=== PATIENT | male | born 1930 | race Caucasian/White ===

== ENCOUNTER 2017-05-29 06:53 | Observation (INO) | payer OTHER ==
[2017-05-29] VITALS (7 sets, daily range): BP systolic 110–165; BP diastolic 63–98; PULSE 64–86; TEMP 36.3–36.7; O2SAT 94–98; BMI 26.0
[~2017-05-29] VITALS: Ht 188 cm; Wt 93.6 kg
[~2017-05-29 06:53] MED LIST: CLCC1250 PO; CMD5 PO; CMD75 PO; MGN PO; MULT-506 PO; OMEG10007 PO; SAW PALMETTO; SIMV20TA2 PO
[2017-05-29] MEDS ORDERED: METO-551 PO (07:14)
[2017-05-29] MEDS ORDERED: WARF5TAB7 PO (07:14)
[2017-05-29] MEDS ORDERED: CHOL100027 PO (07:14)
[2017-05-29] MEDS ORDERED: LEVO50TA PO (07:14)
[2017-05-29] MEDS ORDERED: CHOL20007 PO (07:20)
[2017-05-29] MEDS ORDERED: HEPARIN SOD (PORCINE) 1000 UNIT/ML 10 ML VIAL ONE (08:38)
[2017-05-29] MEDS ORDERED: NiCARDipine HCL INJ 2.5 MG/ML 10 ML AMP ONE (08:38)
[2017-05-29] MEDS ORDERED: MIDAZOLAM HCL 1 MG/ML 2ML VIAL ONE (08:39)
[2017-05-29] MEDS ORDERED: NITROGLYCERIN/D5W 100MCG/ML 20ML SYR ONE (08:39)
[2017-05-29] MEDS ORDERED: FENTANYL CITRATE INJ 50 MCG/1 ML 2 ML VIAL ONE ×2 (08:40→13:40)
--- NOTE | 2017-05-29 08:40 | History & Physical Bridge Note ---
H&P Re-Evaluation Bridge Note: I have examined the patient, reviewed the History & Physical and in the interval since the performance of the History & Physical I have noted the following changes of clinical significance: No changes noted
--- NOTE | 2017-05-29 08:51 | HISTORY & PHYSICAL EXAMINATION ---
DATE OF ADMISSION: 05/29/2017 INDICATIONS: Cardiac catheterization as preoperative evaluation planned aortic root repair. HISTORY OF PRESENT ILLNESS: The patient is an 86-year-old male whose history is notable for: 1. Bicuspid aortic valve. 2. Status post aortic valve replacement in 1995 for severe aortic stenosis receiving Cazares Medtronic mechanical prosthesis. 3. Dilated ascending aorta and thoracic aneurysm. 4. Chronic atrial fibrillation. 5. Left bundle branch block. 6. Hyperlipidemia. The patient is admitted in anticipation of diagnostic cardiac catheterization to evaluate coronary anatomy as a preoperative assessment prior to his planned surgical repair of a dilated thoracic aortic aneurysm. The patient is asymptomatic. Notes no chest pain. Notes no heart failure. Notes no fevers, chills or sweats. He has had bridge anticoagulation with Lovenox from Coumadin. Notes no bleeding difficulties or complications. Notes no allergies. Notes no melena, hematochezia, dysuria or hematuria. REVIEW OF SYSTEMS: Otherwise negative. ALLERGIES: None. MEDICATIONS: Prior to hospitalization, levothyroxine 50 mcg p.o. every day, vitamin D3 2000 units every day, warfarin 5 mg variable dosing, Zocor 20 mg p.o. daily, metoprolol tartrate 50 mg b.i.d., amoxicillin prior to dental procedures. PAST SURGICAL HISTORY: Notable for aortic valve replacement as described, past remote herniorrhaphy, prostate biopsy. FAMILY HISTORY: Noncontributory. SOCIAL HISTORY: The patient is a nonsmoker, nondrinker. PHYSICAL EXAMINATION: GENERAL: The patient is a pleasant, age appropriate male in no acute distress. VITAL SIGNS: Reveal a heart rate of 70, blood pressure is 134/80. HEENT: Normocephalic, atraumatic. Nares without discharge. Throat was clear. NECK: Supple without thyromegaly, lymphadenopathy. There is no jugular venous distention. No carotid bruits. LUNGS: Clear to auscultation. CARDIOVASCULAR: Irregular, irregular with crisp mechanical valve sounds. A grade 1/6 systolic murmur. There is no diastolic murmur. ABDOMEN: Soft, nontender. EXTREMITIES: Without cyanosis or clubbing. There is no peripheral edema. Femoral and distal pulses are 2+/4. There are no femoral bruits. NEUROLOGIC: The patient is intact. IMPRESSION: An 86-year-old male with history of aortic valve disease with bicuspid aortic valve status post remote aortic valve replacement with Cazares Medtronic mechanical prosthesis now demonstrates aortopathy with significant change in the size and dilatation of the thoracic aorta now reaching degree of requiring surgical repair. He is referred now for diagnostic cardiac catheterization in anticipation of procedure. Procedure and risks have been explained in detail with the patient including the risk of , myocardial infarction, stroke, bleeding, infection, dye reaction, renal vascular injury. The patient agrees to proceed. Consent form was completed.
[2017-05-29] MEDS ORDERED: SODIUM CHLORIDE 0.9% 1000ML 1,000 ML IV SCH (10:26)
[2017-05-29] MEDS ORDERED: SODIUM CHLORIDE 0.9% 1000ML 250 ML IV PRN (10:26)
[2017-05-29] MEDS ORDERED: NITROGLYCERIN 0.4 MG SL PER TAB CHARGE SL PRN (10:30)
[2017-05-29] MEDS ORDERED: ACETAMINOPHEN 325 MG TAB PO PRN ×2 (10:30→14:45)
[2017-05-29] MEDS ORDERED: ATROPINE SULFATE 0.1 MG/ML 5ML SYR IV PRN (10:30)
--- NOTE | 2017-05-29 10:35 | [facility] Post Operative Brief Note ---
Preliminary Procedure Note Procedure Date May 29, 2017. Pre-Procedure Diagnosis Valvular Disease AUC Score 7 Post-Procedure Diagnosis Mild CAD Procedure(s) Performed Coronary Angiography, Aortography [facility] Hook[facility] Dr. Jose Antonio Trejo Liability Analyst(s) Lorenzo Roth Estimated Blood Loss <20cc Medication(s) Heparin (2000u IV), Nicardipine (250mcg intraarterial after radial sheath insertion), Versed (1mg IV), Lidocaine 1% (local infiltration) Preliminary Findings Left dominant coronary anatomy Separate origins LAD, LCX LAD mild irreg without obstruction LCX dominant, patent but inadequate visualization RCA non dominant Aortic root, ascending markedly dilated Recommendations valve replacement Specimens None Fluids (cc crystalloids) 140 Anesthesia Start 0852 Stop 1007 Procedural Complication(s) None Disposition Human Capital Analyst Holding/Recovery
[2017-05-29] MEDS ORDERED: ACETAMINOPHEN 325 MG TAB ONE (11:42)
[2017-05-29] MEDS ORDERED: NITROGLYCERIN 2% OINTMENT 30GM TUBE EXT ONE (11:42)
[2017-05-29] MEDS ORDERED: ONDANSETRON INJ 2 MG/ML 2 ML VIAL ONE (13:06)
--- NOTE | 2017-05-29 14:01 | DIAGNOSTIC IMAGING REPORT ---
CT SCAN OF THE BRAIN WITHOUT IV CONTRAST CLINICAL HISTORY: Headache status post cardiac catheterization. COMPARISON STUDY: No priors. TECHNIQUE: Unenhanced axial CT scan of the brain is performed from the vertex to the skull base. A dose lowering technique was utilized adhering to the principles of ALARA. CT DOSE: 537.48 mGy.cm FINDINGS: Brain parenchyma: There are age-related involutional changes noting mild subcortical and periventricular microangiopathic change. There is no hemorrhage, mass effect, or evidence of acute territorial ischemia by CT criteria. Evans-white matter is preserved. No extra-axial fluid collection is seen. Ventricles, sulci, cisterns: Prominent secondary to involutional change. Intracranial vasculature: There is atherosclerotic calcification of the cavernous carotid arteries. Residual contrast is noted within the vessels at the skull base. Calvarium: Unremarkable. Soft tissues: There is a small lipoma in the left frontal scalp. Sinuses and mastoids: Small retention cysts are seen in the sphenoid sinuses. The visualized paranasal sinuses are otherwise clear. The mastoid air cells are well pneumatized. Orbits: The bony orbits are grossly intact. There are bilateral ocular lens implants. IMPRESSION: There is no hemorrhage, mass effect, or evidence of acute territorial ischemia by CT criteria. Electronically signed by: Ken Trujillo M.D. 05/29/2017 2:00 PM Dictated Date/Time: 05/29/2017 1:58 PM
--- NOTE | 2017-05-29 14:14 | CARDIAC CATH REPORT ---
REFERRING: Dr. Jose Antonio Trejo. REFERRAL DIAGNOSIS: Ascending thoracic aneurysm. PREOPERATIVE EVALUATION: History of prior mechanical aortic valve replacement 1995. OPERATIONS AND PROCEDURES: Coronary angiography, aortic root angiography. BRIEF CARDIAC HISTORY: The patient is an 86-year-old male who underwent prior aortic valve replacement with Cazares Medtronic mechanical prosthesis in 1995, who has developed progressively worsening aortopathy with markedly dilated ascending aorta now reaching nearly 6 cm. He is referred for diagnostic cardiac catheterization in anticipation of aortic root repair. He has not manifested angina or congestive heart failure. ACCESS: Right radial artery. CATHETERS: A 6-Algerian long glide sheath, 5-Algerian brachial 3.5, 6-Algerian long FL4, 5-Algerian long FL 3.5, 5-Algerian JL5, 5 Algerian multipurpose, 5 Algerian AR2, 5-Algerian angled pigtail catheter. CONTRAST: Nonionic x209 mL. IV FLUIDS: 140 mL normal saline. RADIATION EXPOSURE: 32.3 minutes of fluoroscopy with 5227 milligrays, DAP score 39734. SEDATION: Start 0852, end 1007. MEDICATIONS SEDATION: Versed 1 mg IV, fentanyl 12.5 mcg IV, local infiltration of access site with lidocaine. After arterial sheath was inserted patient received an additional 250 mcg of nicardipine. After central access was gained, the patient received 2000 units IV heparin. PROCEDURAL NOTE: The patient has distinctly separate origin of the left anterior descending and left circumflex. Left anterior descending was able to be engaged with a long FL4. Ostium of the left circumflex was unable to be engaged despite multiple changes and catheter exchanges predominantly due to dilated aorta, as well as maximal length catheter use with inability to reach ostium of the vessel. Images were obtained with indirect dye injection with suboptimal visualization of the left circumflex. COMPLICATIONS: None. RESULTS: CORONARY ANGIOGRAPHY: Left main is not present. There are separate origins with distinct separation between the origin of the left anterior descending and the left circumflex. LEFT ANTERIOR DESCENDING: Left anterior descending is type 3 in distribution and gives rise to a large multibranching septal branch and a small diagonal branch in its proximal third and an additional bifurcating diagonal branch in its mid portion before coursing beyond the apex. There is mild luminal irregularities left anterior descending with no obstructive disease. LEFT CIRCUMFLEX: Left circumflex is dominant in distribution and is as described not directly cannulated with only modest visualization of its proximal and mid portions. Can be visualized as a large caliber vessel without obstruction to its bifurcation point and to the posterior descending artery and the posterior ventricular branch. The distal vessels are only faintly seen, but appear to have normal flow. RIGHT CORONARY ARTERY: The right coronary artery is small and nondominant consisting of 2 right ventricular branches. HEMODYNAMICS: Initial aortic root pressure was 119/60 with a mean of 86, closing aortic root pressure was 155/96 with a mean of 123. FINAL IMPRESSIONS: 1. Markedly dilated ascending thoracic aorta. 2. Left dominant coronary anatomy with separate origin of the left anterior descending and left circumflex. 3. Widely patent left anterior descending with mild luminal irregularities only. 4. Very modest visualization of the left circumflex due to inability to directly cannulate ostium of procedure compromised secondary to dilated aortic root and length of catheters required to achieve cannulation. Vessels appear patent, distinct obstruction not discerned. 5. Nondominant right coronary artery, small in caliber without obstruction. RECOMMENDATIONS: The patient is being evaluated for surgical repair of thoracic aorta. [facility]
[2017-05-29] MEDS ORDERED: IV FLUIDS COMPLETED PRN (15:15)
[2017-05-29] MEDS: SODIUM CHLORIDE 0.9% 1000ML 1,000 ML IV SCH (15:34)
--- NOTE | 2017-05-29 15:50 | PROGRESS NOTE ---
DATE: 05/29/2017 SUBJECTIVE: The patient today underwent diagnostic cardiac catheterization with difficult procedure due to thoracic aortic aneurysm and difficulty accessing coronary anatomy. The patient received substantial dose of IV contrast greater than 200 mL as well as IV fluids. Post-procedure, the patient was hypertensive and developed severe headache and nausea, received multiple medications including Zofran, fentanyl for pain and headache as well as initial transient dose of topical nitrates for blood pressure control. The patient demonstrated no acute findings with headache. No focal neurologic deficits. CT scan of the head was ordered due to complaints, which demonstrated no acute findings. After discussion with the patient with diffuse nausea, weakness, and above complaints, he was referred for observation. Overnight, we will continue gentle hydration with low threshold for adding a single dose of diuretic and IV fluids and contrast received. Renal function and electrolytes will be checked as well as now and in a.m. The patient will receive usual dose of 10 mg Coumadin this evening with plans on resuming subcutaneous Lovenox in a.m. Cath access site was without compromise. Other than the technically difficult procedure, it was not complicated other than an extended procedure and dye administration. Discussed in detail with patient and . SIDDHARTHA
[2017-05-29] MEDS ORDERED: WARFARIN SOD 10 MG TAB PO ONE (16:00)
[2017-05-29] MEDS ORDERED: SIMVASTATIN 20 MG TAB PO SCH (21:00)
[2017-05-29] MEDS: METOPROLOL TARTRATE 50 MG TAB PO SCH (21:16)
[2017-05-29] MEDS ORDERED: ENOXAPARIN 80 MG/0.8 ML SYR SQ STA (22:14)
[2017-05-29] MEDS ORDERED: NURSING VERBAL MED ORDER ONE (22:15)
[2017-05-30 03:50] VITALS: BP 121/64; PULSE 73; TEMP 36.6; O2SAT 94
[2017-05-30 05:28] LABS: BASO % 0.1 %; BASO ABS # 0.01 K/uL (0-0.2); EOS % 0.8 %; EOS ABS # 0.06 K/uL (0-0.5); HEMATOCRIT 38.8 % (42-52); HEMOGLOBIN 12.7 g/dL (14.0-18.0); IG# 0.02 K/uL (0.00-0.02); LYMPH % 26.7 %; LYMPH ABS # 1.96 K/uL (1.2-3.4); MEAN CELL VOLUME 91.3 fL (80-100); MEAN CORPUSCULAR HEMOGLOBIN 29.9 pg (25-34); MEAN PLATELET VOLUME 11.4 fL (7.4-10.4); MONO % 11.3 %; MONO ABS # 0.83 K/uL (0.11-0.59); NEUT % 60.8 %; NEUT ABS # 4.46 K/uL (1.4-6.5); PLATELET COUNT 140 K/uL (130-400); RED CELL DISTRIBUTION WIDTH CV 13.3 % (11.5-14.5); RED CELL DISTRIBUTION WIDTH SD 44.2 fL (36.4-46.3); WHITE BLOOD COUNT 7.34 K/uL (4.8-10.8)
[2017-05-30 05:37] LABS: INR 1.1 (0.9-1.1)
[2017-05-30 06:00] LABS: CALCIUM 8.4 mg/dl (8.5-10.1); CREATININE 0.95 mg/dl (0.60-1.40); POTASSIUM 3.8 mmol/L (3.5-5.1)
[2017-05-30] MEDS ORDERED: LEVOTHYROXINE 50 MCG TAB PO SCH (06:00)
[2017-05-30 06:03] LABS: MEAN CORPUSCULAR HGB CONC 32.7 g/dl (32-36)
[2017-05-30] MEDS: SODIUM CHLORIDE 0.9% 1000ML 1,000 ML IV SCH (07:15)
[2017-05-30] MEDS: METOPROLOL TARTRATE 50 MG TAB PO SCH (08:08)
[2017-05-30 08:31] VITALS: BP 146/92; PULSE 86; TEMP 36.3; Ht 188 cm; Wt 93.6 kg
[2017-05-30 08:49] VITALS: BP 118/65; PULSE 72; TEMP 36.7; O2SAT 94
--- NOTE | 2017-05-30 09:28 | Discharge Instructions ---
Discharge Instructions Procedure Procedure Date: May 30, 2017. Reason for Visit: Thoracic Aneurysm Without Mention Of Rupture. Discharge Discharge Date: May 30, 2017. Discharge Diagnosis: Thoracic aortic aneurysm, sp cardiac cath Last Recorded Wt (Kilograms): 93.600 Anesthesia Post Anesthesia Instructions: If you have had General Anesthesia or IV Sedation: * Do not drive today. * Resume driving when surgeon permits. * Do not make important decisions or sign legal documents today. * Call surgeon for: 1. Temperature elevations greater than 101 degrees F. 2. Uncontrollable pain. 3. Excessive bleeding. 4. Persistent nausea and vomiting. 5. Medication intolerance (nausea, vomiting or rash). * For nausea and vomiting use only clear liquids such as: tea, soda, bouillon until nausea subsides, then gradually increase diet as tolerated. * If you have any concerns or questions, call your surgeon's office. If physician is unavailable and it is an emergency, call 911 or go to the nearest emergency room. Instructions Activity Recommendations: limitations as noted below Recommended Home Diet: resume previous diet Allergies: Coded Allergies: No Known Allergies (Verified Allergy, Unknown, 04/16/03) Provider Instructions ACTIVITY RECOMMENDATIONS: Excess manipulation of the wrist should be avoided for the next 24-48 hours. * No lifting over 2 pounds (approximately a 1/2 gallon of milk) with the utilized arm for 24 hours. * No strenuous activity such as bowling or tennis for 3 days. * Keep the site of the procedure covered with a bandage for 24 hours. *You may shower the day after the procedure. Do not take a tub bath or submerge the puncture site in water for the next 3 days. *Do not operate any motorized equipment for 3 days. SPECIAL CARE INSTRUCTIONS: The site may be slightly bruised and sore following your procedure. Should any of the following occur, contact the Dr. who performed your procedure. 1. Redness/inflammation, swelling, chills, or fever, or colored drainage at procedure site within 3-7 days after your procedure. 2. Coldness, discoloration, ongoing numbness, severe pain, or swelling. Expect mild tingling of hand and tenderness at the puncture site for up to three days. If this persists beyond three days, or other symptoms develop, notify the Dr. who performed your procedure. BLEEDING: If the procedure site on your wrist begins to bleed, do not panic 1. Place 1 or 2 fingers firmly just slightly above the insertion site to stop the bleeding. You may be able to feel your pulse as you hold pressure. 2. Lift your finger after 5 minutes to see if the bleeding has stopped. 3. Once the bleeding has stopped, gently wipe the wrist area clean with a bandage. * If the bleeding from your wrist does not stop after 10 minutes, or if there is a large amount of bleeding or spurting, call 911 (do not drive yourself to the hospital). SKIN IRRITATION: * You may experience some redness and/or swelling in the area where radiation was administered. If any skin irritation occurs, please contact your family physician. FOLLOW UP VISIT: Keep any scheduled doctor appointments. Follow Up Additional Instructions: ACTIVITY RECOMMENDATIONS: Excess manipulation of the wrist should be avoided for the next 24-48 hours. * No lifting over 2 pounds (approximately a 1/2 gallon of milk) with the utilized arm for 24 hours. * No strenuous activity such as bowling or tennis for 3 days. * Keep the site of the procedure covered with a bandage for 24 hours. *You may shower the day after the procedure. Do not take a tub bath or submerge the puncture site in water for the next 3 days. *Do not operate any motorized equipment for 3 days. SPECIAL CARE INSTRUCTIONS: The site may be slightly bruised and sore following your procedure. Should any of the following occur, contact the Dr. who performed your procedure. 1. Redness/inflammation, swelling, chills, or fever, or colored drainage at procedure site within 3-7 days after your procedure. 2. Coldness, discoloration, ongoing numbness, severe pain, or swelling. Expect mild tingling of hand and tenderness at the puncture site for up to three days. If this persists beyond three days, or other symptoms develop, notify the Dr. who performed your procedure. BLEEDING: If the procedure site on your wrist begins to bleed, do not panic 1. Place 1 or 2 fingers firmly just slightly above the insertion site to stop the bleeding. You may be able to feel your pulse as you hold pressure. 2. Lift your finger after 5 minutes to see if the bleeding has stopped. 3. Once the bleeding has stopped, gently wipe the wrist area clean with a bandage. * If the bleeding from your wrist does not stop after 10 minutes, or if there is a large amount of bleeding or spurting, call 911 (do not drive yourself to the hospital). SKIN IRRITATION: * You may experience some redness and/or swelling in the area where radiation was administered. If any skin irritation occurs, please contact your family physician. FOLLOW UP VISIT: Keep any scheduled doctor appointments. [facility] as arranged, discussed Follow-up with: Dr Hernandez as scheduled Diana Martinez Recommendations: Call your doctor if: * Temperature above 101 degrees * Pain not relieved by pain medicine ordered * There is increased drainage or redness from any incision * You have any unanswered questions or concerns. Your Doctors Instructions noted above were prepared by provider Jose Antonio Trejo. Patient Signature Section: Patient Instructions Signature Page Wallace Baugh Patient (or Guardian) Signature/Date: I have read and understand the instructions given to me by my caregivers. Caregiver/RN/Doctor Signature/Date: The above-named patient and/or guardian has received patient instructions on this date. + Original Patient Signature Page (only) stays with chart. Please make copy for patient.
[2017-05-30] MEDS ORDERED: ENOXAPARIN 80 MG/0.8 ML SYR SQ ONE (09:30)
[2017-05-30 09:36] VITALS: BP 118/65; PULSE 72; TEMP 36.7; O2SAT 94
--- NOTE | 2017-05-30 09:58 | DISCHARGE SUMMARY ---
DISCHARGE DIAGNOSES: 1. Thoracic aortic aneurysm, ascending aorta. 2. Post-cardiac catheterization. 3. Chronic atrial fibrillation. 4. Status post mechanical aortic valve replacement, 1995. OPERATIONS AND PROCEDURES: Coronary angiography, aortic root angiography by Dr. Trejo on 05/29/2017. COMPLICATIONS: Post procedure, the patient developed severe headache and nausea in association with dye load and medications. DISPOSITION: Discharge to home. CONDITION: Stable. MEDICATIONS ON DISCHARGE: The patient is on Lovenox bridge to be completed as per anticoagulation clinic. The patient begun on anticoagulation on evening of 05/29/2017 with dose administered prior to discharge. Usual medications will be continued, which includes vitamin D3 2000 units every day, levothyroxine 50 mcg per day, metoprolol tartrate 50 mg twice per day, Zocor 20 mg p.o. every day, warfarin 5 mg p.o. every day and as directed by Coumadin clinic. SPECIAL INSTRUCTIONS: No driving, lifting or strenuous activity x3 days. Follow right radial access site closely for signs of irritation or bleeding. Call or go to the ER for sudden swelling or bleeding develops. FOLLOW UP: With Dr. Oliverio Hernandez at [facility] on 06/06/2017. DIET: Resume usual heart healthy [facility] diet. HISTORY OF PRESENT ILLNESS: The patient is an 86-year-old male who carries an underlying history of bicuspid aortic valve status post aortic valve replacement with mechanical prosthesis in 1995 receiving a [employer] Medtronic mechanical prosthesis. He has been followed routinely and has demonstrated over the past 3 years' time progressive dilatation of the ascending aorta now reaching surgical severity at nearly 6 cm. He was referred for diagnostic cardiac catheterization in anticipation of surgical evaluation and likely aortic root valve repair. HOSPITAL COURSE: The patient was admitted through the laboratory geneticist and underwent coronary angiography and aortic root angiography. 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 Study demonstrated widely patent left anterior descending. The left circumflex was not directly cannulated due to inability to reach ostium despite maximal catheters used. This demonstrated the vessel to be patent, no distinct obstruction was observed. Right coronary artery was nondominant without obstruction. Aortic root angiography demonstrated dilated aortic root. Mechanical prosthesis could be seen to be normally functional on fluoroscopy. Due to the extent and length of the procedure and significant dye load of greater than 200 mL, the patient post-procedure developed nausea and headache which became progressively worse despite analgesia. CT scan of the head was performed which demonstrated no acute issues. He is referred for inpatient observation with gentle hydration overnight with symptoms resolving. There is no focal neurologic abnormalities. Access site was intact and the patient was begun on Lovenox evening post-catheterization as a bridge anticoagulation for mechanical prosthesis. A.m. after procedure, patient was feeling well without complaint, ambulatory in room. RECOMMENDATIONS: The patient will be discharged to home with planned follow up with cardiovascular surgery as originally scheduled on 06/06/2017. All results and findings discussed in detail with the patient.
== END 2017-05-30 11:52 | disposition home or self-care (01) ==
LOC: C.CATH 06:53 → CANRESERV 14:34 → ENRESERV 14:34 → C.2E 14:47
PROVIDERS: ADMIT Internal Medicine Cardiovascular Disease; ATTEND Internal Medicine Cardiovascular Disease
DX: I71.2 Thoracic aortic aneurysm, without rupture (principal); I48.91 Unspecified atrial fibrillation; I25.10 Atherosclerotic heart disease of native coronary artery without angina pectoris; I44.7 Left bundle-branch block, unspecified; E78.5 Hyperlipidemia, unspecified; Z95.2 Presence of prosthetic heart valve; Z79.01 Long term (current) use of anticoagulants; Z79.899 Other long term (current) drug therapy; Z98.890 Other specified postprocedural states

== ENCOUNTER → 2017-07-21 | Outpatient (CLI) | payer OTHER ==
[~2017-07-21] MED LIST changes: +ACET-1311 PO; +AMOX500C3 PO; +ASPI81TA28 PO; +CHOL20007 PO; -CLCC1250 PO; -CMD5 PO; -CMD75 PO; +FRS/40 PO; +LEVO50TA PO; +LPR25 PO; +METO-551 PO; -MGN PO; -MULT-506 PO; -OMEG10007 PO; +POTA10CA28 PO; -SAW PALMETTO; +WARF5TAB7 PO
--- NOTE | 2017-07-21 15:40 | DIAGNOSTIC IMAGING REPORT ---
EFFUSION-CHEST/MEDIASTINUM HISTORY: 87 years-old Male LEFT PLEURAL EFFUSION left pleural effusion with acute shortness of breath COMPARISON: Chest radiographs 12/01/2007 TECHNIQUE: Multiple real-time sonographic images of the bilateral chest were obtained assessing grayscale appearance FINDINGS: No right-sided pleural effusion identified. Trace left pleural effusion noted with approximately 102 mL left pleural fluid present. Minimal degree of atelectatic lung noted at the left lung base. IMPRESSION: Trace left pleural effusion with approximately 102 mL left pleural fluid. The above report was generated using voice recognition software. It may contain grammatical, syntax or spelling errors. Electronically signed by: Shane Washington M.D. 07/21/2017 3:38 PM Dictated Date/Time: 07/21/2017 3:37 PM
== END | disposition home or self-care (01) ==
LOC: C.ULTR 14:47
PROVIDERS: ATTEND Internal Medicine Cardiovascular Disease
DX: J90 Pleural effusion, not elsewhere classified (principal)

== ENCOUNTER 2017-07-27 11:16 | Emergency (ER) | payer OTHER ==
[~2017-07-27] VITALS: Ht 188 cm; Wt 90.0 kg
[~2017-07-27 11:16] MED LIST changes: -ACET-1311 PO; -AMOX500C3 PO; -ASPI81TA28 PO; -FRS/40 PO; -LPR25 PO; -POTA10CA28 PO
[2017-07-27 11:17] VITALS: TEMP 36.9; Ht 188 cm; Wt 90.0 kg
[2017-07-27] MEDS ORDERED: SODIUM CHLORIDE 0.9% 1000ML 1,000 ML IV STA (11:46)
[2017-07-27 11:56] LABS: HEMATOCRIT 39.4 % (42-52); HEMOGLOBIN 12.6 g/dL (14.0-18.0); MEAN CELL VOLUME 87.8 fL (80-100); MEAN CORPUSCULAR HEMOGLOBIN 28.1 pg (25-34); MEAN PLATELET VOLUME 10.2 fL (7.4-10.4); PLATELET COUNT 197 K/uL (130-400); RED CELL DISTRIBUTION WIDTH CV 14.5 % (11.5-14.5); RED CELL DISTRIBUTION WIDTH SD 46.6 fL (36.4-46.3); WHITE BLOOD COUNT 13.59 K/uL (4.8-10.8)
[2017-07-27] MEDS ORDERED: ACET-1311 PO (12:02)
[2017-07-27] MEDS ORDERED: AMOX500C3 PO (12:02)
[2017-07-27] MEDS ORDERED: ASPI81TA28 PO (12:02)
[2017-07-27] MEDS ORDERED: POTA10CA28 PO (12:02)
[2017-07-27] MEDS ORDERED: FRS/40 PO (12:02)
[2017-07-27 12:06] LABS: BLOOD UREA NITROGEN 20 mg/dl (7-18); CALCIUM 8.9 mg/dl (8.5-10.1); CARBON DIOXIDE 28 mmol/L (21-32); CREATININE 0.98 mg/dl (0.60-1.40); GLUCOSE 110 mg/dl (70-99); LIPASE 164 U/L (73-393); POTASSIUM 4.4 mmol/L (3.5-5.1); SODIUM 133 mmol/L (136-145)
[2017-07-27 12:08] LABS: INR 2.1 (0.9-1.1)
--- NOTE | 2017-07-27 12:10 | DIAGNOSTIC IMAGING REPORT ---
CHEST ONE VIEW PORTABLE CLINICAL HISTORY: Shortness of breath COMPARISON STUDY: November 2007 FINDINGS: The heart is enlarged. There are postsurgical changes of a midline sternotomy and valvular replacement. There is an atrial occluder device present. 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 There is no overt failure. There are minor airspace opacities the left lung base, atelectatic versus inflammatory.[ IMPRESSION: Minor left basilar airspace opacities, atelectatic versus infectious/inflammatory Electronically signed by: Ray Gill M.D. 07/27/2017 12:09 PM Dictated Date/Time: 07/27/2017 12:08 PM
--- NOTE | 2017-07-27 12:12 | EMERGENCY ROOM VISIT NOTE ---
History Report prepared by Cieraibskyler: Ellen Fernandez Under the Supervision of: Dr. John Hogan M.D. First contact with patient: 11:22 Chief Complaint: ILLNESS Stated Complaint: SEVERE SHAKING/RECENT OPEN HEART SUREGER 6 WEEKS History of Present Illness The patient is a 87 year old male who presents to the Emergency Room with complaints of constant shaking and chills beginning at 8 am this morning. Per , the patient's whole body was shaking for about an hour. The patient states he started drinking water and hot chocolate and his shaking symptoms resolved. The patient had open heart surgery at [facility] by Dr. Hernandez 6 weeks ago . 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 He reports having 2 pints of a blood transfusion when he was at [facility]. The patient is on warfarin and his last level was 1.9. The patient denies any chest pain, shortness of breath, cough, headache, nausea, vomiting, pain with urination, blood in urine or stools, or LOC. He denies any recent falls or injuries. Source of History: patient Onset: 8 am this morning Position: other (generalized) Quality: other (chills and shaking) Associated Symptoms: + chills, No headache, No chest pain, No SOB, No nausea , No vomiting, No urinary symptoms Review of Systems See HPI for pertinent positives and negatives. A total of ten systems were reviewed and were otherwise negative. 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 Social History Smoking Status: Never Smoker Marital Status: Housing Status: lives with significant other Occupation Status: retired Current/Historical Medications Scheduled Amoxicillin (Amoxil), 1 CAP PO BID Aspirin (Aspirin Ec), 81 MG PO DAILY Cholecalciferol (Vitamin D3), 1 TAB PO DAILY Levothyroxine Sodium (Synthroid), 1 TAB PO DAILY Metoprolol Tartrate (Lopressor), 1 TAB PO BID Potassium Chloride (Micro-K Ext Rel), 10 MEQ PO BID Warfarin Sod (Jantoven), 5 MG PO DAILY Miscellaneous Medications Acetaminophen (Tylenol), 325 MG PO Furosemide (Lasix), 40 MG PO Allergies Coded Allergies: No Known Allergies (Verified , 07/27/17) Physical Exam Vital Signs Date Time Temp Pulse Resp B/P (MAP) Pulse Ox O2 Delivery O2 Flow Rate FiO2 07/27/17 14:37 60 20 128/67 99 07/27/17 13:27 65 12 128/65 95 Room Air 07/27/17 12:33 60 23 124/65 93 Room Air 07/27/17 12:23 60 07/27/17 11:33 65 23 138/71 97 Room Air 07/27/17 11:17 36.9 79 18 134/78 94 Room Air Physical Exam Physical Exam GENERAL: He is oriented to person, place, and time. He appears well-developed and well-nourished. He does not appear distressed. ____ HENT: Exam performed. Head: Normocephalic and atraumatic. Right Ear: External ear normal. No mastoid tenderness. Left Ear: External ear normal. No mastoid tenderness. Mouth/Throat: The oropharynx is clear and moist. No trismus in the jaw. No dental abscesses or uvula swelling. No oropharyngeal exudate or tonsillar abscesses. ____ EYES: Conjunctivae and EOM are normal. Pupils are equal, round, and reactive to light. Right eye exhibits no discharge. Left eye exhibits no discharge. No scleral icterus. ____ NECK: Normal range of motion. Neck supple. No JVD present. No spinous process tenderness present. No carotid bruit present. No rigidity. No tracheal deviation and normal range of motion present. No Brudzinski's sign and no Kernig 's sign noted. ____ CV: Systolic murmur appreciated Normal rate, regular rhythm, normal heart sounds and intact distal pulses. There is no peripheral edema. Palpable radial pulses bue. ____ PULM/CHEST: Effort normal and breath sounds normal. No respiratory distress. No stridor. He has no wheezes. He has no rales. Chest Wall: He exhibits no tenderness. ____ ABD: The abdomen is soft. Bowel sounds are normal. He has no distension. No mass is present. There is no tenderness. There is no rebound, no guarding, no Alvarado's sign and no tenderness at McBurney's point. Rovsig negative MUSC/SKEL: Normal range of motion. There is no peripheral edema, tenderness or deformity. LYMPH: No cervical adenopathy. ____ NEURO: He is alert and oriented to person, place, and time. He has normal strength. No cranial nerve deficit or sensory deficit. Coordination and gait normal. GCS eye subscore is 4. GCS verbal subscore is 5. GCS motor subscore is 6. Cerebellar tests wnl. ____ SKIN: 1+ pitting edema in bilateral lower extremities. Incision over anterior chest, clean and healing well, no erythema or discharge. Skin is warm and dry. He is not diaphoretic. ____ PSYCH: He has a normal mood and affect. His behavior is normal. Judgment and thought content normal. ____ Medical Decision & Procedures ER Provider Diagnostic Interpretation: Radiology results as stated below per my review and radiologist interpretation: CHEST ONE VIEW PORTABLE FINDINGS: The heart is enlarged. There are postsurgical changes of a midline sternotomy and valvular replacement. There is an atrial occluder device present. 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 There is no overt failure. There are minor airspace opacities the left lung base, atelectatic versus inflammatory.[ IMPRESSION: Minor left basilar airspace opacities, atelectatic versus infectious/inflammatory Electronically signed by: Ray Gill M.D. CT ANGIOGRAM OF THE CHEST FINDINGS: There are mildly enlarged mediastinal lymph nodes. There is a 12 mm subcarinal lymph node. There is a 11 mm precarinal lymph node. There are postsurgical changes involving the ascending thoracic aorta which is mildly dilated measuring 4 cm. There is no evidence of acute pulmonary embolism. Evaluation of the subsegmental lower artery pulmonary branches are limited due to respiratory motion artifact. There is a small left pleural effusion There are mild dependent atelectatic changes. There is no lobar consolidation. There are postsurgical changes of a midline sternotomy. 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 There is an 8mm right middle lobe solid perifissural nodule Increased soft tissue in the anterior mediastinum, likely relates to recent surgery IMPRESSION: 1. Postsurgical changes involving the ascending thoracic aorta 2. No evidence of acute pulmonary embolism 3. Small left pleural effusion 4. Study mildly degraded by respiratory motion artifact 5. Solid 8 mm right middle lobe perifissural nodule. 6. Minimally enlarged mediastinal lymph nodes 7. Increased soft tissue in the anterior mediastinum, likely relating to recent surgery. Electronically signed by: Ray Gill M.D. Laboratory Results 07/27/17 11:40 Red Blood Count 4.49, Mean Corpuscular Volume 87.8, Mean Corpuscular Hemoglobin 28.1, Mean Corpuscular Hemoglobin Concent 32.0, Mean Platelet Volume 10.2, Neutrophils (%) (Auto) 83.8, Lymphocytes (%) (Auto) 7.8, Monocytes (%) (Auto) 7.5, Eosinophils (%) (Auto) 0.4, Basophils (%) (Auto) 0.1, Neutrophils # (Auto) 11.39, Lymphocytes # (Auto) 1.06, Monocytes # (Auto) 1.02, Eosinophils # (Auto) 0.05, Basophils # (Auto) 0.02 07/27/17 11:40 Test 07/27/17 11:30 07/27/17 11:40 07/27/17 12:00 07/27/17 12:07 Urine Color YELLOW Urine Appearance CLEAR (CLEAR) Urine pH 7.0 (4.5-7.5) Urine Specific Frederic 1.013 (1.000-1.030) Urine Protein NEG (NEG) Urine Glucose (UA) NEG (NEG) Urine Ketones NEG (NEG) Urine Occult Blood TRACE (NEG) Urine Nitrite NEG (NEG) Urine Bilirubin NEG (NEG) Urine Urobilinogen NEG (NEG) Urine Leukocyte Esterase NEG (NEG) Urine WBC (Auto) 0 /hpf (0-5) Urine RBC (Auto) 0-4 /hpf (0-4) Urine Hyaline Casts (Auto) 0 /lpf (0-5) Urine Epithelial Cells (Auto) 0-5 /lpf (0-5) Urine Bacteria (Auto) NEG (NEG) White Blood Count 13.59 K/uL (4.8-10.8) Red Blood Count 4.49 M/uL (4.7-6.1) Hemoglobin 12.6 g/dL (14.0-18.0) Hematocrit 39.4 % (42-52) Mean Corpuscular Volume 87.8 fL (80-100) Mean Corpuscular Hemoglobin 28.1 pg (25-34) Mean Corpuscular Hemoglobin Concent 32.0 g/dl (32-36) Platelet Count 197 K/uL (130-400) Mean Platelet Volume 10.2 fL (7.4-10.4) Neutrophils (%) (Auto) 83.8 % Lymphocytes (%) (Auto) 7.8 % Monocytes (%) (Auto) 7.5 % Eosinophils (%) (Auto) 0.4 % Basophils (%) (Auto) 0.1 % Neutrophils # (Auto) 11.39 K/uL (1.4-6.5) Lymphocytes # (Auto) 1.06 K/uL (1.2-3.4) Monocytes # (Auto) 1.02 K/uL (0.11-0.59) Eosinophils # (Auto) 0.05 K/uL (0-0.5) Basophils # (Auto) 0.02 K/uL (0-0.2) RDW Standard Deviation 46.6 fL (36.4-46.3) RDW Coefficient of Variation 14.5 % (11.5-14.5) Immature Granulocyte % (Auto) 0.4 % Immature Granulocyte # (Auto) 0.05 K/uL (0.00-0.02) Prothrombin Time 21.8 SECONDS (9.0-12.0) Prothromb Time International Ratio 2.1 (0.9-1.1) Activated Partial Thromboplast Time 32.0 SECONDS (21.0-31.0) Partial Thromboplastin Ratio 1.2 Anion Gap 8.0 mmol/L (3-11) Est Creatinine Clear Calc Drug Dose 64.1 ml/min Estimated GFR () 81.2 Estimated GFR (Non- 70.0 BUN/Creatinine Ratio 20.2 (10-20) Calcium Level 8.9 mg/dl (8.5-10.1) Magnesium Level 2.1 mg/dl (1.8-2.4) Troponin I < 0.015 ng/ml (0-0.045) Pro-B-Type Natriuretic Peptide 2241 pg/ml (0-1800) Lipase 164 U/L (73-393) Influenza Type A Antigen Neg for Influ A (NEG) Influenza Type B Antigen Neg for Influ B (NEG) Lactic Acid Level 1.3 mmol/L (0.4-2.0) Laboratory results reviewed by me Medications Administered Medications (Trade) Dose Ordered Sig/Renny Route Start Time Stop Time Status Last Admin Dose Admin Sodium Chloride 1,000 ml @ 125 mls/hr Q8H STAT IV 07/27/17 11:46 07/27/17 15:06 DC 07/27/17 11:56 125 MLS/HR ECG Per My Interpretation Indication: weakness Rate (beats per minute): 85 Rhythm: other (ventricular paced) Findings: other (QRS 174, QTC 525 ) ED Course 1141: The patient was evaluated in room C7. A complete history and physical exam was performed. 1146: Ordered Sodium Chloride 1000 ml @ 125 mls/hr IV. 1359: Vital signs stable. Labs within normal limits with the exception of mild leukocytosis of 13.59, and elevated proBNP of 2241. Patient's INR is therapeutic at 2.1. Influenza and urinalysis within normal limits. CTA of chest shows small left pleural effusion, no infiltrate, no pulmonary embolism. Patient has no fever, reports no cough, has no headache, no meningeal signs, leukocytosis is thought to be reactive. Discussed the patient's case with Dr. Hernandez-Surgeon. I updated him on the patients CTA results. He said the patient can follow up with him on Friday at [facility]. He saw the patient in office recently, and the patient has a history of a left sided pleural effusion which they are currently treating with Lasix. Discussed the patient's case with Dr. Tobin-Cardiology. He thinks the patient can follow up as an outpatient. Vitals stable, the patient's symptoms have resolved. I reevaluated the patient. Discussed results and discharge instructions: He verbalized understanding and agreement. The patient is ready for discharge. DISCHARGE - Plan of care discussed with family and questions answered. The family was given both verbal and printed discharge instructions. The family verbalized understanding and ability to comply. The family is to seek outpatient follow up as noted in the discharge instructions. The family verbalized understanding and ability to comply. The family is discharged in stable condition. The family was instructed to return for worsening symptoms. Medical Decision Vital signs stable. Labs within normal limits with the exception of mild leukocytosis of 13.59, and elevated proBNP of 2241. Patient's INR is therapeutic at 2.1. Influenza and urinalysis within normal limits. CTA of chest shows small left pleural effusion, no infiltrate, no pulmonary embolism. Patient has no fever, reports no cough, has no headache, no meningeal signs, leukocytosis is thought to be reactive. Discussed the patient's case with Dr. Reyes. I updated him on the patients CTA results. He said the patient can follow up with him on Friday at [facility]. He saw the patient in office recently, and the patient has a history of a left sided pleural effusion which they are currently treating with Lasix. Discussed the patient's case with Dr. Radford. He thinks the patient can follow up as an outpatient. Vitals stable, the patient's symptoms have resolved. I reevaluated the patient. Discussed results and discharge instructions: He verbalized understanding and agreement. The patient is ready for discharge. DISCHARGE - Plan of care discussed with family and questions answered. The family was given both verbal and printed discharge instructions. The family verbalized understanding and ability to comply. The family is to seek outpatient follow up as noted in the discharge instructions. The family verbalized understanding and ability to comply. The family is discharged in stable condition. The family was instructed to return for worsening symptoms. Medication Reconcilliation Current Medication List: was personally reviewed by me Blood Pressure Screening Patient's blood pressure: Normal blood pressure Consults Time Called: 1350 Consulting Physician: Dr. Reyes Returned Call: [phone] Discussed the patient's case with Dr. Reyes. I updated him on the patients CTA results. He said the patient can follow up with him on Friday at [facility]. He saw the patient in office recently, and the patient has a history of a left sided pleural effusion which they are currently treating with Lasix. Additional Consults: Time Called: 1400 Consulted Physician: Dr. Radford Returned Call: [phone] Additional Comments: Discussed the patient's case with Dr. Radford. He thinks the patient can follow up as an outpatient. Impression Primary Impression: Shaking chills Scribe Attestation The scribe's documentation has been prepared under my direction and personally reviewed by me in its entirety. I confirm that the note above accurately reflects all work, treatment, procedures, and medical decision making performed by me. The chart was completed utilizing [employer] Speech voice recognition software. Grammatical errors, random word insertions, pronoun errors, and incomplete sentences are an occasional consequence of this system due to software limitations, ambient noise, and hardware issues. Any formal questions or concerns about the content, text, or information contained within the body of this dictation should be directly addressed to the physician for clarification. Departure Information Dispostion Home / Self-Care Referrals Jose Antonio Trejo M.D. (PCP) Forms HOME CARE DOCUMENTATION FORM, IMPORTANT VISIT INFORMATION, WORK / SCHOOL INSTRUCTIONS Patient Instructions My [facility] Additional Instructions Return to the emergency department if you develop chest pain, difficulty breathing, fever greater than 100.4, lose consciousness, have seizure, develop blood in your stool, blood in urine, dark black stools. Follow-up with your surgeon Dr. Hernandez at [facility] on Friday as needed
[2017-07-27 12:18] LABS: BASO % 0.1 %; BASO ABS # 0.02 K/uL (0-0.2); EOS % 0.4 %; EOS ABS # 0.05 K/uL (0-0.5); IG# 0.05 K/uL (0.00-0.02); LYMPH % 7.8 %; LYMPH ABS # 1.06 K/uL (1.2-3.4); MONO % 7.5 %; MONO ABS # 1.02 K/uL (0.11-0.59); NEUT % 83.8 %; NEUT ABS # 11.39 K/uL (1.4-6.5)
[2017-07-27] MEDS ORDERED: OPTIRAY 320 IV PRN (12:30)
[2017-07-27 12:39] LABS: INFLUENZA B ANTIGEN Neg for Influ B (NEG)
--- NOTE | 2017-07-27 13:36 | DIAGNOSTIC IMAGING REPORT ---
CT ANGIOGRAM OF THE CHEST CLINICAL HISTORY: Shortness of breath. Chest pain. Recent aortic graft surgery. Possible pulmonary embolism. COMPARISON STUDY: Chest x-ray dated 07/27/2017 TECHNIQUE: Following the IV administration of 89 mL of Optiray-320, CT angiogram of the thorax was performed from the thoracic inlet to the lung bases utilizing the pulmonary embolus protocol. Images are reviewed in the axial, sagittal, and coronal planes. IV contrast was administered without complication. MIP imaging was performed. A dose lowering technique was utilized adhering to the principles of ALARA. CT DOSE: 438.79 mGy.cm FINDINGS: There are mildly enlarged mediastinal lymph nodes. There is a 12 mm subcarinal lymph node. There is a 11 mm precarinal lymph node. There are postsurgical changes involving the ascending thoracic aorta which is mildly dilated measuring 4 cm. There is no evidence of acute pulmonary embolism. Evaluation of the subsegmental lower artery pulmonary branches are limited due to respiratory motion artifact. There is a small left pleural effusion There are mild dependent atelectatic changes. There is no lobar consolidation. There are postsurgical changes of a midline sternotomy. 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 There is an 8mm right middle lobe solid perifissural nodule Increased soft tissue in the anterior mediastinum, likely relates to recent surgery IMPRESSION: 1. Postsurgical changes involving the ascending thoracic aorta 2. No evidence of acute pulmonary embolism 3. Small left pleural effusion 4. Study mildly degraded by respiratory motion artifact 5. Solid 8 mm right middle lobe perifissural nodule. 6. Minimally enlarged mediastinal lymph nodes 7. Increased soft tissue in the anterior mediastinum, likely relating to recent surgery. Electronically signed by: Ray Gill M.D. 07/27/2017 1:34 PM Dictated Date/Time: 07/27/2017 1:28 PM
[2017-07-27 14:37] VITALS: BP 128/67; PULSE 60; O2SAT 99
[2017-07-28] MEDS ORDERED: LPR25 PO (14:40)
== END 2017-07-27 14:39 | disposition home or self-care (01) ==
LOC: C.EDB 11:18 → C.EDC 14:39
DX: R68.83 Chills (without fever) (principal); D72.829 Elevated white blood cell count, unspecified; R79.89 Other specified abnormal findings of blood chemistry; J90 Pleural effusion, not elsewhere classified; Z95.2 Presence of prosthetic heart valve; Z79.01 Long term (current) use of anticoagulants; Z79.82 Long term (current) use of aspirin

== ENCOUNTER 2017-07-28 14:06 | Emergency (ER) | payer OTHER ==
[~2017-07-28] VITALS: Ht 188 cm; Wt 88.2 kg
[2017-07-28 14:06] VITALS: Ht 188 cm; Wt 88.2 kg
[~2017-07-28 14:06] MED LIST changes: +ACET-1311 PO; +AMOX500C3 PO; +ASPI81TA28 PO; +FRS/40 PO; +POTA10CA28 PO; -SIMV20TA2 PO
[2017-07-28] MEDS ORDERED: PIPERACILLIN/TAZOBACTAM 4.5 GM/100ML D5W IV STA (14:30)
[2017-07-28 14:37] VITALS: O2SAT 98
[2017-07-28] MEDS ORDERED: LPR25 PO (14:40)
--- NOTE | 2017-07-28 14:41 | EMERGENCY ROOM VISIT NOTE ---
History Report prepared by Jayshree: Luis Whitfield Under the Supervision of: Dr. Ken Lemos M.D. First contact with patient: 14:22 Chief Complaint: WOUND INFECTION Stated Complaint: WOUND INFECTION Nursing Triage Summary: Pt had a CABG done on Jun 12. Pt was seen here yesterday for chills and shaking. Over the last few days, patient has had pain, increased redness and warmth over incision in right upper thigh from harvesting femoral artery for CABG. Denies fever. History of Present Illness The patient is an 87 year old male who presents to the Emergency Room with complaints of a worsening infection for the past 2 days on his right leg. The patient states that he had heart surgery on June 12. The patient states that he had an aortic aneurysm repair, a mechanical valve replaced with a pig valve and a bypass surgery with a vein in his right leg. The patient states that he was doing fine until two days ago. He states that he has been having chills, shakiness yesterday which resolved, and his right groin is very red, warm, and it hurts to move. The patient states that he was going to cardiac rehab for the first time today, and they saw the infection and sent him to the ED for evaluation. The patient denies any coughing, burning with urination, difficulty urinating, diarrhea, vomiting, and drainage. He states that he is not currently on antibiotics, though he is currently on Coumadin. The patient reports that he was in the ED yesterday for shakiness and chills, though they did not look at his groin yesterday, and he states that it has gotten much redder since yesterday. Source of History: patient Onset: 2 days ago Position: leg (right) Quality: other (infection) Timing: worsening Associated Symptoms: + chills, No cough, No vomiting, No diarrhea Note: Associated symptoms: Redness and shakiness Review of Systems See HPI for pertinent positives & negatives. A total of 10 systems reviewed and were otherwise negative. 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 Social History Smoking Status: Never Smoker Marital Status: Housing Status: lives with significant other Occupation Status: retired Current/Historical Medications Scheduled Aspirin (Aspirin Ec), 81 MG PO DAILY Furosemide (Lasix), 40 MG PO DAILY Levothyroxine Sodium (Synthroid), 50 MCG PO DAILY Metoprolol Tartrate (Lopressor), 25 MG PO BID Potassium Chloride (Micro-K Ext Rel), 10 MEQ PO DAILY Warfarin Sod (Jantoven), 5 MG PO DAILY Scheduled PRN Amoxicillin (Amoxil), 500 MG PO BID PRN for PRIOR TO DENTAL TREATMENT Miscellaneous Medications Cholecalciferol (Vitamin D3), 2,000 UNITS PO Allergies Coded Allergies: No Known Allergies (Verified , 07/28/17) Physical Exam Vital Signs Date Time Temp Pulse Resp B/P (MAP) Pulse Ox O2 Delivery O2 Flow Rate FiO2 07/28/17 19:05 38.0 60 16 103/56 93 07/28/17 17:46 60 16 93 Room Air 07/28/17 17:00 38.5 07/28/17 16:58 60 18 136/63 92 Room Air 07/28/17 16:07 37.5 07/28/17 15:56 61 16 130/60 97 Room Air 07/28/17 14:37 98 Room Air 07/28/17 14:06 36.8 82 20 164/79 98 Room Air Physical Exam GENERAL: Patient is in no acute distress. HEENT: No acute trauma, normocephalic atraumatic, mucous membranes moist, no nasal congestion, no scleral icterus. NECK: No stridor, no adenopathy, no meningismus, trachea is midline. LUNGS: Scattered crackles. No wheezing or rhonchi. Breath sounds are equal. No respiratory distress. HEART: 2/6 systolic murmur. Regular rate and rhythm ABDOMEN: Soft, nontender, bowel sounds positive, no hernias, no peritonitis. EXTREMITIES: Patient's right groin is erythematous extending down towards the knee. There is warmth. No drainage. The surgical groin incision is tender and somewhat swollen. Right leg is more edematous than the left. NEUROLOGIC: Oriented x 3, no acute motor or sensory deficits, no focal weakness. SKIN: No rash, no jaundice, no diaphoresis. Medical Decision & Procedures ER Provider Diagnostic Interpretation: Radiology results as stated below per my review and radiologist interpretation: R EXTREMITY NONVASCULAR LIMITED HISTORY: 87 years-old Male right groin surg--poss abscess acute redness and swelling of the right inguinal region with recent surgery COMPARISON: None available TECHNIQUE: Multiple real-time sonographic images of the right inguinal region were obtained assessing grayscale appearance, color and spectral flow. FINDINGS: Within the right groin there is an ovoid complex hypoechoic structure without internal vascularity measuring 5.0 x 2.4 x 4.3 cm. The central most portion of this lesion is anechoic compatible with central fluid. Additionally, there is mild to moderate subcutaneous edema about the right groin with a second hypoechoic structure noted inferomedially to the aforementioned lesion measuring 3.1 x 2.5 x 2.7 cm. The common femoral artery and vein and greater saphenous vein appear patent and within normal limits. IMPRESSION: Two complex ovoid hypoechoic areas of the right inguinal region measuring up to 5.0 cm without internal vascularity suggest hematoma, complex seroma or possibly abscess formation with mild to moderate associated right inguinal subcutaneous edema. The above report was generated using voice recognition software. It may contain grammatical, syntax or spelling errors. Electronically signed by: Shane Washington M.D. 07/28/2017 3:27 PM Dictated Date/Time: 07/28/2017 3:24 PM CHEST ONE VIEW PORTABLE CLINICAL HISTORY: Sepsis COMPARISON STUDY: Chest radiograph and chest CT July 27, 2017. FINDINGS: Median sternotomy wires are noted as well as a prosthetic aortic valve. Moderate cardiomegaly is noted. There is no evidence for pulmonary edema. There is a small left pleural effusion with mild left basilar opacity. This is unchanged. The appearance of the chest is unchanged. IMPRESSION: 1. Small left pleural effusion with left basilar opacity suggestive of atelectasis. 2. Moderate cardiomegaly without evidence of pulmonary edema. Electronically signed by: Ricardo Chambers M.D. 07/28/2017 2:46 PM Dictated Date/Time: 07/28/2017 2:45 PM Laboratory Results 07/28/17 14:22 Red Blood Count 4.16, Mean Corpuscular Volume 87.3, Mean Corpuscular Hemoglobin 28.6, Mean Corpuscular Hemoglobin Concent 32.8, Mean Platelet Volume 10.4, Neutrophils (%) (Auto) 71.6, Lymphocytes (%) (Auto) 14.7, Monocytes (%) (Auto) 12.7, Eosinophils (%) (Auto) 0.2, Basophils (%) (Auto) 0.2, Neutrophils # (Auto ) 9.52, Lymphocytes # (Auto) 1.96, Monocytes # (Auto) 1.69, Eosinophils # (Auto ) 0.03, Basophils # (Auto) 0.02 07/28/17 14:22 Test 07/28/17 14:22 07/28/17 14:28 White Blood Count 13.30 K/uL (4.8-10.8) Red Blood Count 4.16 M/uL (4.7-6.1) Hemoglobin 11.9 g/dL (14.0-18.0) Hematocrit 36.3 % (42-52) Mean Corpuscular Volume 87.3 fL (80-100) Mean Corpuscular Hemoglobin 28.6 pg (25-34) Mean Corpuscular Hemoglobin Concent 32.8 g/dl (32-36) Platelet Count 172 K/uL (130-400) Mean Platelet Volume 10.4 fL (7.4-10.4) Neutrophils (%) (Auto) 71.6 % Lymphocytes (%) (Auto) 14.7 % Monocytes (%) (Auto) 12.7 % Eosinophils (%) (Auto) 0.2 % Basophils (%) (Auto) 0.2 % Neutrophils # (Auto) 9.52 K/uL (1.4-6.5) Lymphocytes # (Auto) 1.96 K/uL (1.2-3.4) Monocytes # (Auto) 1.69 K/uL (0.11-0.59) Eosinophils # (Auto) 0.03 K/uL (0-0.5) Basophils # (Auto) 0.02 K/uL (0-0.2) RDW Standard Deviation 47.0 fL (36.4-46.3) RDW Coefficient of Variation 14.7 % (11.5-14.5) Immature Granulocyte % (Auto) 0.6 % Immature Granulocyte # (Auto) 0.08 K/uL (0.00-0.02) Prothrombin Time 22.1 SECONDS (9.0-12.0) Prothromb Time International Ratio 2.1 (0.9-1.1) Activated Partial Thromboplast Time 39.9 SECONDS (21.0-31.0) Partial Thromboplastin Ratio 1.5 Anion Gap 6.0 mmol/L (3-11) Est Creatinine Clear Calc Drug Dose 55.6 ml/min Estimated GFR () 68.3 Estimated GFR (Non- 58.9 BUN/Creatinine Ratio 18.9 (10-20) Calcium Level 8.6 mg/dl (8.5-10.1) Total Bilirubin 1.8 mg/dl (0.2-1) Aspartate Amino Transf (AST/SGOT) 20 U/L (15-37) Alanine Aminotransferase (ALT/SGPT) 19 U/L (12-78) Alkaline Phosphatase 91 U/L (45-117) Total Protein 8.0 gm/dl (6.4-8.2) Albumin 3.9 gm/dl (3.4-5.0) Globulin 4.1 gm/dl (2.5-4.0) Albumin/Globulin Ratio 1.0 (0.9-2) Bedside Lactic Acid Venous 1.80 mmol/L (0.90-1.70) Laboratory results reviewed by me. Medications Administered Medications (Trade) Dose Ordered Sig/Renny Route Start Time Stop Time Status Last Admin Dose Admin Piperacillin Sod/ Tazobactam Sod (Zosyn Iv) 4.5 gm ONE STAT IV 07/28/17 14:30 07/28/17 14:34 DC 07/28/17 14:41 4.5 GM Vancomycin HCl (Vancomycin 1gm/ 270ml Nss) 1 gm NOW STAT IV 07/28/17 16:16 07/28/17 16:19 DC 07/28/17 16:25 1 GM Acetaminophen (Tylenol Tab) 1,000 mg NOW STAT PO 07/28/17 16:21 07/28/17 16:22 DC 07/28/17 16:25 1,000 MG Ondansetron HCl (Zofran Inj) 4 mg NOW STAT IV 07/28/17 16:30 07/28/17 16:32 DC 07/28/17 16:34 4 MG ED Course 1422: The patient was evaluated in room A3. A complete history and physical exam was performed. 1430: Zosyn 4.5gm IV 1436: I discussed the patient's case with Dr. Trejo - Cardiology, and he thinks that the patient would be able to stay in our hospital. 1542: I reevaluated the patient, and Dr. Clark - [facility] was in the room evaluating the patient. 1545: I discussed the patient's case with Dr. Andre Lyn. 1616: I talked with Dr. Brewster, and he recommends transferring the patient. I ordered Vancomycin 1gm IV 1621: Tylenol Tab 1000mg PO 1630: Zofran 4mg IV 1659: I reevaluated the patient, and he is doing well. Medical Decision Differential diagnoses include: endocarditis, sepsis, bacteremia, abscess, cellulitis, wound infection, anemia, and electrolyte imbalance. There is a mild leukocytosis at 13,000, this is consistent with infection. No concerning anemia. No significant electrolyte abnormality, kidney failure or hepatitis. Lactic acid level is not significantly elevated making severe sepsis less likely. INR is elevated consistent with his Coumadin use. Chest film does not show pneumonia or CHF. Blood cultures are pending. Right leg ultrasound shows a 5 cm fluid collection in the area of his surgical incision, this could be consistent with seroma or possibly abscess. The patient presents with chills and malaise He has an obvious right groin cellulitis with a potential abscess/fluid collection over his surgical wound. He did receive IV saline, IV Zosyn and IV vancomycin. He was given IV Zofran. He received oral Tylenol. I talked with cardiology, we discussed the case. 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 The case was discussed. The decision was made for the patient to be transferred back to his surgical service at [facility]. The surgeon and there did accept the patient in transfer. The orders for transfer were written and the patient was sent via [facility] ambulance. The patient has a surgical wound infection in the right groin. This has led to fever and chills. He requires a higher level of care. I talked to the patient about all his findings. Case management has been involved. Medication Reconcilliation Current Medication List: was personally reviewed by me Blood Pressure Screening Patient's blood pressure: Elevated blood pressure Monitored by the hospitalist and hay farmer Consults Time Called: 1434 Consulting Physician: Dr. Neil Feliciano Cardiology Returned Call: [phone] I discussed the patient's case with Dr. Neil Sarmiento, and he thinks that the patient would be able to stay in our hospital. Additional Consults: Time Called: 1525 Consulted Physician: Dr. Andre Feliciano Hospitalist Returned Call: [phone] Additional Comments: I discussed the patient's case with Dr. Andre Lyn. Impression Primary Impression: Surgical wound infection Additional Impression: Cellulitis of right leg Scribe Attestation The scribe's documentation has been prepared under my direction and personally reviewed by me in its entirety. I confirm that the note above accurately reflects all work, treatment, procedures, and medical decision making performed by me. Departure Information Dispostion Transfer Acute Care Facility Referrals Faustino Dc MD (PCP) Patient Instructions My [facility] Problem Qualifiers
--- NOTE | 2017-07-28 14:48 | DIAGNOSTIC IMAGING REPORT ---
CHEST ONE VIEW PORTABLE CLINICAL HISTORY: Sepsis COMPARISON STUDY: Chest radiograph and chest CT July 27, 2017. FINDINGS: Median sternotomy wires are noted as well as a prosthetic aortic valve. Moderate cardiomegaly is noted. There is no evidence for pulmonary edema. There is a small left pleural effusion with mild left basilar opacity. This is unchanged. The appearance of the chest is unchanged. IMPRESSION: 1. Small left pleural effusion with left basilar opacity suggestive of atelectasis. 2. Moderate cardiomegaly without evidence of pulmonary edema. Electronically signed by: Ricardo Chambers M.D. 07/28/2017 2:46 PM Dictated Date/Time: 07/28/2017 2:45 PM
[2017-07-28 14:50] LABS: BASO % 0.2 %; BASO ABS # 0.02 K/uL (0-0.2); EOS % 0.2 %; EOS ABS # 0.03 K/uL (0-0.5); HEMATOCRIT 36.3 % (42-52); HEMOGLOBIN 11.9 g/dL (14.0-18.0); IG# 0.08 K/uL (0.00-0.02); LYMPH % 14.7 %; LYMPH ABS # 1.96 K/uL (1.2-3.4); MEAN CELL VOLUME 87.3 fL (80-100); MEAN CORPUSCULAR HEMOGLOBIN 28.6 pg (25-34); MEAN CORPUSCULAR HGB CONC 32.8 g/dl (32-36); MEAN PLATELET VOLUME 10.4 fL (7.4-10.4); MONO % 12.7 %; MONO ABS # 1.69 K/uL (0.11-0.59); NEUT % 71.6 %; NEUT ABS # 9.52 K/uL (1.4-6.5); PLATELET COUNT 172 K/uL (130-400); RED CELL DISTRIBUTION WIDTH CV 14.7 % (11.5-14.5)
[2017-07-28 15:00] LABS: INR 2.1 (0.9-1.1); PTT PATIENT 39.9 SECONDS (21.0-31.0)
[2017-07-28 15:02] LABS: ALBUMIN 3.9 gm/dl (3.4-5.0); CALCIUM 8.6 mg/dl (8.5-10.1); CREATININE 1.13 mg/dl (0.60-1.40); POTASSIUM 3.8 mmol/L (3.5-5.1)
--- NOTE | 2017-07-28 15:28 | DIAGNOSTIC IMAGING REPORT ---
R EXTREMITY NONVASCULAR LIMITED HISTORY: 87 years-old Male right groin surg--poss abscess acute redness and swelling of the right inguinal region with recent surgery COMPARISON: None available TECHNIQUE: Multiple real-time sonographic images of the right inguinal region were obtained assessing grayscale appearance, color and spectral flow. FINDINGS: Within the right groin there is an ovoid complex hypoechoic structure without internal vascularity measuring 5.0 x 2.4 x 4.3 cm. The central most portion of this lesion is anechoic compatible with central fluid. Additionally, there is mild to moderate subcutaneous edema about the right groin with a second hypoechoic structure noted inferomedially to the aforementioned lesion measuring 3.1 x 2.5 x 2.7 cm. The common femoral artery and vein and greater saphenous vein appear patent and within normal limits. IMPRESSION: Two complex ovoid hypoechoic areas of the right inguinal region measuring up to 5.0 cm without internal vascularity suggest hematoma, complex seroma or possibly abscess formation with mild to moderate associated right inguinal subcutaneous edema. The above report was generated using voice recognition software. It may contain grammatical, syntax or spelling errors. Electronically signed by: Shane Washington M.D. 07/28/2017 3:27 PM Dictated Date/Time: 07/28/2017 3:24 PM
[2017-07-28] MEDS ORDERED: VANCOMYCIN 1GM ED/ASU OMNICELL IV STA (16:16)
[2017-07-28] MEDS ORDERED: ACETAMINOPHEN 325 MG TAB PO STA (16:19)
[2017-07-28] MEDS ORDERED: ACETAMINOPHEN 500 MG TAB PO STA (16:21)
[2017-07-28] MEDS ORDERED: ONDANSETRON INJ 2 MG/ML 2 ML VIAL IV STA (16:30)
--- NOTE | 2017-07-28 17:23 | Cardiology Consultation ---
Cardiology Consultation Date of Consultation: Jul 28, 2017 History of Present Illness Dejon Baugh is an 87 year old male seen in cardiology consultation per the request of Dr Lemos in the ED for complaint 3 days of chills, and progressive pain and swelling of the right groin. The patient is well known to our cardiology service having most recently been seen by Dr. Trejo as an outpatient on 07/17/17. The patient recently undergone complex cardiac surgery as delineated below as well as postoperative dual- chamber permanent pacemaker implantation. He has been followed closely for a postoperative left pleural effusion. The patient presented to the emergency room today for symptoms of progressive chills and progressive swelling in the right groin at the area of incision that a been performed at the time of his heart surgery. He has been seen in the emergency room approximately 24 hours prior, and was discharged, but had progression of his symptoms and the area of concern has changed significantly with progressive erythema and swelling. Upon my evaluation, the patient was having rigors in the emergency department. He received a dose of Zosyn. On examination, there is an erythematous area over the previous incision at the proximal right groin. No drainage was noted. Palpation was consistent with a subcutaneous fluid collection. Ultrasound results became available while he was seen the patient and described to complex hypoechoic areas in the right inguinal region measuring 5 cm x 2.4 cm x 4.3 cm and a second hypoechoic area measuring 3.1 x 2.5 x 2.7 cm. Per the radiology report, the appearance was consistent with possible hematoma, complex seroma, or possibly abscess formation. The patient denies any chest discomfort or shortness of breath at present. 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 4.Status post June 12, 2017 redo sternotomy, aortic root and ascending aortic replacement with a bioprosthetic valve conduit 25 mm Magna valve, 30 mm Valsalva graft), coronary artery bypass grafting of the proximal RCA with a reverse saphenous vein graft, and AtriCure clipping of the left atrial append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 11.Dyslipidemia 12.Hypothyroidism Review Of Systems See above for pertinent positives & negatives. A total of 10 systems reviewed and were otherwise negative. Allergies Coded Allergies: No Known Allergies (Verified , 07/28/17) Medications Reported Home Medications Medications Dose Route/Sig Max Daily Dose Days Date Category Lopressor (Metoprolol Tartrate) 25 Mg Tab 25 Mg PO BID 07/28/17 Reported Amoxil (Amoxicillin) 500 Mg Cap 500 Mg PO BID PRN 07/27/17 Reported Aspirin Ec (Aspirin) 81 Mg Tab 81 Mg PO DAILY 07/27/17 Reported Lasix (Furosemide) 40 Mg Tab 40 Mg PO DAILY 07/27/17 Reported Micro-K Ext Rel (Potassium Chloride) 10 Meq Capcr 10 Meq PO DAILY 07/27/17 Reported Vitamin D3 (Cholecalciferol) 2,000 Unit Tab 2,000 Units PO 05/29/17 Reported Jantoven (Warfarin Sodium) 5 Mg Tab 5 Mg PO DAILY 05/29/17 Reported Synthroid (Levothyroxine Sodium) 50 Mcg Tab 50 Mcg PO DAILY 05/29/17 Reported Physical Exam Vital Signs (Last 8hrs): Last 8 Hrs Date Time Temp Pulse Resp B/P (MAP) Pulse Ox O2 Delivery O2 Flow Rate FiO2 07/28/17 17:00 38.5 07/28/17 16:58 60 18 136/63 92 Room Air 07/28/17 16:07 37.5 07/28/17 15:56 61 16 130/60 97 Room Air 07/28/17 14:37 98 Room Air 07/28/17 14:06 36.8 82 20 164/79 98 Room Air General Appearance: Alert and Oriented x3. Ill in appearance Head: Normocephalic Atraumatic. Eyes: PERRLA, EOMI, conjunctiva and sclera clear Neck: Supple. No carotid bruits noted. No JVD. No HJD. Respiratory: Breath sounds clear to auscultation bilaterally. No w/r/r. Cardiovascular: Reg rate and rhythm. S1 and S2 noted. No murmurs, rubs, gallops. PMI non displace. Abdomen: Normal bowel sounds, soft nontender. no abdominal bruits. Extremities: Right groin with significant erythema, subcutaneous fluid collection concerning for hematoma, seroma, or abscess Neuro: No focal deficits. Psychiatric: Normal affect. Data Last Resulted 07/28/17 14:22 Red Blood Count 4.16, Mean Corpuscular Volume 87.3, Mean Corpuscular Hemoglobin 28.6, Mean Corpuscular Hemoglobin Concent 32.8, Mean Platelet Volume 10.4, Neutrophils (%) (Auto) 71.6, Lymphocytes (%) (Auto) 14.7, Monocytes (%) (Auto) 12.7, Eosinophils (%) (Auto) 0.2, Basophils (%) (Auto) 0.2, Neutrophils # (Auto ) 9.52, Lymphocytes # (Auto) 1.96, Monocytes # (Auto) 1.69, Eosinophils # (Auto ) 0.03, Basophils # (Auto) 0.02 Last Resulted 07/28/17 14:22 Past 24 Hours Test 07/28/17 14:22 Range/Units Prothromb Time International Ratio 2.1 H 0.9-1.1 Prothrombin Time 22.1 H 9.0-12.0 SECONDS Ultrasound report as noted above Telemetry reveals ventricular paced rhythm at 62 beats per Assessment & Plan Impression: 87-year-old male status post recent complex surgery with ascending thoracic aortic aneurysm repair, redo aortic valve replacement with a bioprosthetic aortic valve/ascending thoracic aorta conduit, right coronary artery bypass, left atrial appendage clipping, postoperative complete heart block prompting insertion of dual-chamber pacemaker now presents with chills, leukocytosis, and findings of a right groin cellulitis, with physical exam findings concerning for progression toward abscess. Recommendations: The case was discussed with Dr. Lemos in the [facility] ED and Dr Hernandez of CT [place] [facility] [place] has followed the patient closely perioperatively. I personally recommendation was for transfer [place] [facility] [place] assessment by the cardiothoracic surgery team and consideration toward incision and debridement. Dr. Hernandez accepts the patient in transfer. We will add vancomycin to his Zosyn, and administer acetaminophen given his current chills. The patient's blood pressure is stable. I feel he is stable for transfer by ACLS ground. The patient's pacemaker pocket site is clean dry and intact with no erythema. The patient had recently undergone transthoracic echocardiogram 2 weeks ago at [facility] with stable findings and normal prosthetic aortic valve function, normal EF. Moderate to large left pleural effusion has been followed by both echocardiogram and a chest x-ray. After the patient's infectious issues are stabilized, would recommend consideration toward thoracentesis of the left pleural effusion.
[2017-07-28 19:05] VITALS: BP 103/56; PULSE 60; TEMP 38; O2SAT 93
== END 2017-07-28 19:08 | disposition short-term general hospital (02) ==
LOC: EDBD 14:06 → C.EDA 14:07
DX: L76.82 Other postprocedural complications of skin and subcutaneous tissue (principal); L03.115 Cellulitis of right lower limb; Z95.1 Presence of aortocoronary bypass graft; I71.2 Thoracic aortic aneurysm, without rupture; Z79.82 Long term (current) use of aspirin; Z79.01 Long term (current) use of anticoagulants; Z79.899 Other long term (current) drug therapy

== ENCOUNTER 2022-02-15 00:50 | Inpatient (IN) ==
[2022-02-15] MEDS ORDERED: Patient's HEIGHT &/or WEIGHT Needed STA (00:53)
[2022-02-15] MEDS ORDERED: LORazepam 2 MG/2 ML SYR ONE (01:05)
[2022-02-15] MEDS ORDERED: HALOPERIDOL LACTATE 5 MG/ML 1 ML VIAL ONE (01:06)
--- NOTE | 2022-02-15 01:10 | Emergency Department Note ---
Impression & Plan Altered mental state ADMIT ED Provider Note HPI: The patient is an 89-year-old gentleman with history of atrial fibrillation, on Coumadin, who presented to the emergency department after he collapsed on the floor this evening. Patient was called in via EMS as a stroke alert, patient was noted to have complained of a headache, ambulated to the restroom and then his heard him collapse. On her assessment shortly thereafter patient was slumped over next to the toilet on the floor, he had an acute change in his mental status. EMS was contacted, per EMS report patient was confused and had some mild right-sided facial droop therefore stroke alert was activated from the field. On arrival here to the ED the patient is confused, he is agitated and mildly combative. Patient does not display any focal deficits and ambulates all 4 extremities spontaneously on arrival. ROS: -Neuro: Acute altered mentation *10 point review systems was conducted and is otherwise negative unless stated above *Outpatient medications and allergy history reviewed PE: General: Alert, agitated HEENT: Normocephalic, trachea midline Eyes: Extraocular eye movement is intact, no scleral erythema Pulmonary: Clear to auscultation bilaterally, no wheezing Cardio: Regular rate and rhythm GI: Abdomen is soft, nontender : No suprapubic tenderness MSK: No evidence of trauma or malformation of the extremities, no edema Skin: No evidence of rash Neuro: Alert, patient is unable to follow commands, patient is confused with mild agitation, ambulates all 4 extremities spontaneously Psychiatric: Agitated/Confused playground monitor: - An order was placed for continuous cardiac monitoring - Patient was noted to be in a paced rhythm with a rate of 65 EKG: Rate: 63 Rhythm: Ventricular paced rhythm Intervals: QTC 534 ms, QRS [address] changes: No ST elevation Time: 0127 CT HEAD: Comparison: None. Exam is limited due to motion/breathing artifact. No ICH, mass effect or edema. No evidence of acute cortical stroke. Periventricular small vessel ischemic change. Moderate to severe generalized brain atrophy. Visualized sinuses and mastoid air cells are clear. Radiologist: Teodora Reyna MD Study ready at 01:34 and initial results transmitted at 01:42 Communications: Clear Time Type Notes 02/15/22 01:[address] percy, called DR Virgen 02/15 01:56 (-04:0 0) CTA HEAD: Calcified atherosclerotic disease throughout the cavernous portion of the bilateral internal carotid arteries with no severe stenosis, occlusion or aneurysm. Radiologist: Teodora Reyna MD Study ready at 01:44 and initial results transmitted at 01:54 Communications: Clear Time Type Notes Calcified atherosclerotic disease of aorta and origin of great vessels. Mild calcified atherosclerotic disease throughout the bilateral carotid arteries. Moderate calcified plaque at the level of the right carotid bulb. Moderate calcified plaque at the origin of the right internal carotid artery with less than 50% diameter narrowing. Remainder of the right internal carotid artery is unremarkable. Mild to moderate calcified plaque at the level of the left carotid bulb. Moderate calcified plaque at the origin of the left internal carotid artery with approximate 50-60% of the left. Mild calcified atherosclerotic disease involving the bilateral vertebral arteries with no evidence of severe stenosis or occlusion.Radiologist:JEAN Saezhone:[phone] ready at 01:44 and initial results transm itted at 01:53Communications: Clear NmubVentKxccj23/30/22 01:56Call DoctorRegarding Stroke, called [facility] 02/15 01:56 (-04:00)02/15/22 01:57 Call Doctor Regarding Stroke, called Dr Tiffany sutton 02/15 01:56 (-04:00) *NIH stroke scale unable to be fully performed secondary to patient's altered mental status and agitation. Medical Decision Making: Patient presented to the emergency department with a chief complaint of altered mental status. According to his at the bedside, the patient complained of a headache and then ambulated to the restroom this evening where he collapsed and seemed confused and agitated afterwards. According to the patient's he did not have any seizure-like activity in regards to any tonic-clonic movements but she later does tell me that it seemed like his upper extremities were rigid at the time. Stroke alert was initiated from the field, CT scan of the head does not show any evidence of acute intracranial bleeding, CT angiography does not show any evidence of large vessel occlusion. Patient did require some Haldol and Ativan to be given an order for CT scan to be assessed but did cause some delay, I did discuss the patient's presentation with on-call stroke neurology at [facility], Dr. Diaz. In addition to the fact that the patient's presentation may be more consistent with some type of seizure-like events, he is noted to be anticoagulated on Coumadin for history of A. fib and his INR is 1.8 therefore he is not considered a candidate for lysis. I did discuss this with the patient's family who is all now at the bedside and they are in agreement. Patient's lab work was obtained and is otherwise largely unremarkable, no critical electrolyte abnormalities are noted, there is slight anemia and slight thrombocytopenia. On my reassessment the patient appears more comfortable in bed following Ativan and Haldol, he has not exhibited any seizure-like activity but does appear to be possibly postictal. He does not display any rigidity of the extremities, there is no tonic-clonic activity. Patient's blood pressure was elevated on multiple occasions here in the ED and over concern for possible hypertensive encephalopathy he was given a dose of labetalol as well as a dose of hydralazine. Pressure did improve. I discussed the differential diagnosis with the patient's family, I did discuss with them that he does not have any evidence of intracranial bleeding as was our initial concern for possible hemorrhagic stroke on the patient's presentation. Ischemic stroke and seizure would remain on the differential, low suspicion for infectious etiology given the acuity of the patient's symptoms this evening. In addition he has no fever, no leukocytosis. At this time he is noted to be full code. Pt required Oxy Mask to be placed for some transient hypoxia here in the ED following sedation. He otherwise has maintained his airway without issue. Patient's family at the bedside is in agreement for admission, patient will be admitted for further observation and testing. Case was discussed with the on- call hospitalist for [facility], Dr. Zamudio, and the patient was admitted in stable condition for further care. Diagnosis: 1. Altered mental status, acute 2. Acute agitation 3. Unwitnessed fall/collapse 4. Hypertension 5. Transient hypoxia Disposition: Admission Jose Luis Virgen DO Emergency Medicine Past Med/Surg History Medical History (Updated 02/15/22 @ 05:24 by Jose Luis Virgen DO) Thoracic aneurysm without mention of rupture Surgical History History of open heart surgery Family History Other Family history non-contributory Social History Smoking Status: Never smoker Preferred Language: Jordanian Feels Safe at Home: Yes Allergies Allergies Allergy/AdvReac Type Severity Reaction Status Date / Time No Known Allergies Allergy Verified 08/06/18 17:08 Home Meds Home Medications Medication Instructions Recorded Confirmed acetaminophen 500 mg tablet 1,000 mg PO Q6H PRN pain or fever 08/06/18 08/06/18 amoxicillin 500 mg capsule 2,000 mg PO DIRECTED PRN dental 08/06/18 08/06/18 work aspirin 81 mg chewable tablet 81 mg PO DAILY 08/06/18 08/06/18 cholecalciferol (vitamin D3) 50 2,000 unit PO DAILY 08/06/18 08/06/18 mcg (2,000 unit) capsule (Vitamin D3) levothyroxine 50 mcg tablet 50 mcg PO DAILY 08/06/18 08/06/18 metoprolol tartrate 25 mg tablet 25 mg PO BID 08/06/18 08/06/18 simvastatin 20 mg tablet 20 mg PO HS 08/06/18 08/06/18 warfarin 5 mg tablet 2.5 mg PO WK 08/06/18 08/06/18 warfarin 5 mg tablet 5 mg PO [id number] 08/06/18 08/06/18 Results & Data (ED) Vital Signs Vital Signs - 24 hr 02/15/22 01:32 02/15/22 02:16 02/15/22 02:17 Temperature 36.8 C Temperature Source Oral Pulse Rate 66 Pulse Rate [Apical] 64 Pulse Rhythm Regular Pulse Rhythm [Apical] Regular Pulse Strength Normal Pulse Strength [Apical] Normal Respiratory Rate 19 18 Respiratory Effort / Characteristics Non-Labored Spontaneous Non-Labored Spontaneous Respiratory Depth Normal Normal Respiratory Pattern Regular Regular Blood Pressure 181/116 H Blood Pressure [Right Arm] 170/102 H Blood Pressure Mean 137 Blood Pressure Mean [Right Arm] 124 Blood Pressure Position Semi-fowlers Blood Pressure Position [Right Arm] Semi-fowlers Pulse Oximetry 99 95 96 Oxygen Delivery Method Room Air Oxymask Oxymask Oxygen Flow Rate 3 3 Sepsis Recent Fever Within 48 Hours No Sepsis New/Unexplained Change in Mental Status Yes Sepsis Action Taken by Nursing No Action Required 02/15/22 02:46 02/15/22 04:00 02/15/22 04:32 Temperature Temperature Source Pulse Rate Pulse Rate [Apical] 62 60 60 Pulse Rhythm Pulse Rhythm [Apical] Regular Regular Regular Pulse Strength Pulse Strength [Apical] Normal Normal Normal Respiratory Rate 19 18 18 Respiratory Effort / Characteristics Non-Labored Spontaneous Non-Labored Spontaneous Non-Labored Spontaneous Respiratory Depth Normal Normal Normal Respiratory Pattern Regular Regular Blood Pressure Blood Pressure [Right Arm] 208/116 H 177/84 H 112/59 L Blood Pressure Mean Blood Pressure Mean [Right Arm] 146 115 76 Blood Pressure Position Blood Pressure Position [Right Arm] Lying Lying Lying Pulse Oximetry 98 94 95 Oxygen Delivery Method Oxymask Oxymask Oxymask Oxygen Flow Rate 3 3 3 Sepsis Recent Fever Within 48 Hours Sepsis New/Unexplained Change in Mental Status Sepsis Action Taken by Nursing Laboratory Data Result diagrams: 02/15/22 01:01 02/15/22 01:01 Lab Results 02/15/22 02/15/22 02/15/22 Range/Units 01:01 01:01 01:01 WBC 7.08 (4.8-10.8) K/ul RBC 3.27 L (4.63-6.08) M/uL Hgb 9.8 L (14.0-18.0) g/dl Hct 29.3 L (40.1-51.0) % MCV 89.6 (80.0-100.0) fL MCH 30.0 (25.0-34.0) pg MCHC 33.4 (32.0-36.0) g/dL RDW Std Deviation 41.9 (36.4-46.3) fL RDW Coeff of Georgette 12.6 (11.5-14.5) % Plt Count 127 L (130-400) K/uL MPV 11.0 (9.4-12.4) fL Immature Gran % (Auto) 0.4 % Neut % (Auto) 70.4 % Lymph % (Auto) 20.6 % Johnston % (Auto) 7.9 % Eos % (Auto) 0.4 % Baso % (Auto) 0.3 % Neut # (Auto) 4.98 (1.4-6.5) K/uL Lymph # (Auto) 1.46 (1.2-3.4) K/uL Johnston # (Auto) 0.56 (0.24-0.82) K/uL Eos # (Auto) 0.03 (0-0.50) K/uL Baso # (Auto) 0.02 (0-0.2) K/uL Immature Gran # (Auto) 0.03 H (0.00-0.02) K/uL RBC Morphology Unremarkable PT 18.5 H (9.0-12.0) Seconds INR 1.8 H (0.9-1.1) APTT 29.3 (21.0-31.0) Seconds PTT Ratio 1.1 Sodium 132 L (136-145) mmol/L Potassium 3.6 (3.5-5.1) mmol/L Chloride 102 (98-107) mmol/L Carbon Dioxide 20 L (21-32) mmol/L Anion Gap 10 (3-11) BUN 22 (6-23) mg/dl Creatinine 0.95 (0.6-1.4) mg/dl Est Cr Clr Drug Dosing 61.3 ml/min Est GFR ( Amer) 81.9 ml/min Est GFR (Non-Af Amer) 70.7 ml/min BUN/Creatinine Ratio 23.2 H (10-20) Glucose 131 H (70-99(Fasting)) mg/dl Calcium 7.7 L (8.5-10.1) mg/dl Magnesium 1.6 L (1.7-2.4) mg/dl Total Bilirubin 0.9 (0.2-1.0) mg/dl AST 19 (13-39) U/L ALT 14 (7-52) U/L Alkaline Phosphatase 63 (34-104) U/L Troponin I High Sens 10.7 (0-20) pg/ml Total Protein 6.2 (6.0-8.3) gm/dl Albumin 3.9 (3.4-5.0) gm/dl Globulin 2.3 L (2.5-4.0) gm/dl Albumin/Globulin Ratio 1.7 (0.9-2) SARS-CoV-2, RNA, NAAT (NEGATIVE) 02/15/22 Range/Units 02:20 WBC (4.8-10.8) K/ul RBC (4.63-6.08) M/uL Hgb (14.0-18.0) g/dl Hct (40.1-51.0) % MCV (80.0-100.0) fL MCH (25.0-34.0) pg MCHC (32.0-36.0) g/dL RDW Std Deviation (36.4-46.3) fL RDW Coeff of Georgette (11.5-14.5) % Plt Count (130-400) K/uL MPV (9.4-12.4) fL Immature Gran % (Auto) % Neut % (Auto) % Lymph % (Auto) % Johnston % (Auto) % Eos % (Auto) % Baso % (Auto) % Neut # (Auto) (1.4-6.5) K/uL Lymph # (Auto) (1.2-3.4) K/uL Johnston # (Auto) (0.24-0.82) K/uL Eos # (Auto) (0-0.50) K/uL Baso # (Auto) (0-0.2) K/uL Immature Gran # (Auto) (0.00-0.02) K/uL RBC Morphology PT (9.0-12.0) Seconds INR (0.9-1.1) APTT (21.0-31.0) Seconds PTT Ratio Sodium (136-145) mmol/L Potassium (3.5-5.1) mmol/L Chloride (98-107) mmol/L Carbon Dioxide (21-32) mmol/L Anion Gap (3-11) BUN (6-23) mg/dl Creatinine (0.6-1.4) mg/dl Est Cr Clr Drug Dosing ml/min Est GFR ( Amer) ml/min Est GFR (Non-Af Amer) ml/min BUN/Creatinine Ratio (10-20) Glucose (70-99(Fasting)) mg/dl Calcium (8.5-10.1) mg/dl Magnesium (1.7-2.4) mg/dl Total Bilirubin (0.2-1.0) mg/dl AST (13-39) U/L ALT (7-52) U/L Alkaline Phosphatase (34-104) U/L Troponin I High Sens (0-20) pg/ml Total Protein (6.0-8.3) gm/dl Albumin (3.4-5.0) gm/dl Globulin (2.5-4.0) gm/dl Albumin/Globulin Ratio (0.9-2) SARS-CoV-2, RNA, NAAT NEGATIVE (NEGATIVE) Administered Medications Discontinued Medications Haloperidol Lactate (Haloperidol Lactate 5 Mg/Ml 1 Ml Vial) Confirm Administered Dose 5 mg .ROUTE .STK-MED ONE Stop: 02/15/22 01:07 Last Admin: 02/15/22 01:08 Dose: 5 mg Documented By: DEE Haloperidol Lactate (Haloperidol Lactate 5 Mg/Ml 1 Ml Vial) 5 mg IV NOW STA Stop: 02/15/22 01:43 Last Admin: 02/15/22 02:00 Dose: 5 mg Documented By: DEE Hydralazine HCl (Hydralazine Hcl 20 Mg/Ml Vial) 5 mg IV NOW ONE Stop: 02/15/22 03:09 Last Admin: 02/15/22 03:13 Dose: 5 mg Documented By: DEE Ioversol (Optiray 300 500ml) 116 ml IV ONCE ONE Stop: 02/15/22 02:19 Last Admin: 02/15/22 02:18 Dose: 116 ml Documented By: BRET Labetalol HCl (Labetalol Hcl Iv 5 Mg/Ml 20ml) 10 mg IV NOW STA Stop: 02/15/22 01:59 Last Admin: 02/15/22 02:13 Dose: 10 mg Documented By: DEE Co-signed By: AICHA Lorazepam (Lorazepam 2 Mg/2 Ml Syr) Confirm Administered Dose 2 mg .ROUTE .STK- MED ONE Stop: 02/15/22 01:06 Last Admin: 02/15/22 01:08 Dose: 1 mg Documented By: DEE Lorazepam (Lorazepam 2 Mg/2 Ml Syr) 1 mg IV NOW STA; Protocol Stop: 02/15/22 01:43 Last Admin: 02/15/22 01:58 Dose: 1 mg Documented By: DEE Lorazepam (Lorazepam 2 Mg/2 Ml Syr) 1 mg IV NOW STA; Protocol Stop: 02/15/22 04:00 Last Admin: 02/15/22 04:09 Dose: 1 mg Documented By: DEE Miscellaneous (Patient's Height &/Or Weight Needed) 1 each N/A NOW STA Stop: 02/15/22 00:54 Last Admin: 02/15/22 02:26 Dose: 1 each Documented By: DEE Discharge Plan Visit Data Chief Complaint: Stroke/CVA Symptoms ED Provider: Jose Luis Virgen Discharge Problem: Altered mental state Patient Disposition: Admitted As Inpatient Forms Stand Alone Forms: My [facility] Prescriptions Prescriptions: No Action amoxicillin 500 mg Capsule 2,000 mg PO DIRECTED PRN (Reason: dental work) acetaminophen 500 mg Tablet 1,000 mg PO Q6H PRN (Reason: pain or fever) Rx Instructions: no more than 2,000 mg per day levothyroxine 50 mcg Tablet 50 mcg PO DAILY simvastatin 20 mg Tablet 20 mg PO HS warfarin 5 mg Tablet 5 mg PO [id number] Rx Instructions: sun, mon, wed, THRU, fri, sat aspirin 81 mg Tablet,Chewable 81 mg PO DAILY metoprolol tartrate 25 mg Tablet 25 mg PO BID cholecalciferol (vitamin D3) [Vitamin D3] 2,000 unit Capsule 2,000 unit PO DAILY warfarin 5 mg Tablet 2.5 mg PO WK Rx Instructions: ON friday Referrals Referrals: Faustino Dc MD [Primary Care Provider] -
[2022-02-15 01:30] LABS: INR 1.8 (0.9-1.1); Partial Thromboplastin Ratio 1.1; Partial Thromboplastin Time 29.3 Seconds (21.0-31.0); Prothrombin Time 18.5 Seconds (9.0-12.0)
[2022-02-15 01:31] LABS: Hematocrit (blood only) 29.3 % (40.1-51.0); Hemoglobin 9.8 g/dl (14.0-18.0); Mean Corpuscular Hgb Conc 33.4 g/dL (32.0-36.0); Mean Corpuscular Volume 89.6 fL (80.0-100.0); Platelet Count 127 K/uL (130-400); RDW Coefficient of Variation 12.6 % (11.5-14.5); RDW Standard Deviation 41.9 fL (36.4-46.3); Red Blood Count 3.27 M/uL (4.63-6.08); White Blood Count 7.08 K/ul (4.8-10.8)
[2022-02-15 01:33] LABS: Basophils # (auto) 0.02 K/uL (0-0.2); Basophils % (auto) 0.3 %; Eosinophils # (auto) 0.03 K/uL (0-0.50); Eosinophils % (auto) 0.4 %; Immature Granulocytes # (auto) 0.03 K/uL (0.00-0.02); Immature Granulocytes % (auto) 0.4 %; Lymphocytes # (auto) 1.46 K/uL (1.2-3.4); Lymphocytes % (auto) 20.6 %; Monocytes # (auto) 0.56 K/uL (0.24-0.82); Monocytes % (auto) 7.9 %; Neutrophils # (auto) 4.98 K/uL (1.4-6.5); Neutrophils % (auto) 70.4 %; RBC Morphology Unremarkable
[2022-02-15 01:40] LABS: Troponin I High Sensitivity 10.7 pg/ml (0-20)
[2022-02-15] MEDS ORDERED: HALOPERIDOL LACTATE 5 MG/ML 1 ML VIAL IV STA (01:42)
[2022-02-15] MEDS ORDERED: LORazepam 2 MG/2 ML SYR IV STA ×2 (01:42→03:59)
[2022-02-15 01:52] LABS: Albumin Globulin Ratio 1.7 (0.9-2); Albumin Level 3.9 gm/dl (3.4-5.0); BUN Creatinine Ratio 23.2 (10-20); Bilirubin,Total 0.9 mg/dl (0.2-1.0); Calcium 7.7 mg/dl (8.5-10.1); Creatinine Clr Calc Pharmacy 61.3 ml/min; Est GFR (African American) 81.9 ml/min; Est GFR (Non-African American) 70.7 ml/min; Globulin 2.3 gm/dl (2.5-4.0); Magnesium 1.6 mg/dl (1.7-2.4); Potassium 3.6 mmol/L (3.5-5.1); Total Protein 6.2 gm/dl (6.0-8.3)
[2022-02-15] MEDS ORDERED: LABETALOL HCL IV 5 MG/ML 20ML IV STA (01:58)
[2022-02-15] MEDS ORDERED: OPTIRAY 300 500mL IV ONE (02:18)
[2022-02-15] MEDS ORDERED: hydrALAZINE HCL 20 MG/ML VIAL IV ONE (03:08)
[2022-02-15] MEDS ORDERED: ACETAMINOPHEN 325 MG TAB PO PRN (06:01)
[2022-02-15] MEDS ORDERED: PHARMACIST DISCHARGE MED REC CONSULT PRN (06:01)
[2022-02-15] MEDS ORDERED: LORAZEPAM IV PRN ×2 (06:01→06:19)
[2022-02-15] MEDS ORDERED: NITROGLYCERIN SL 0.4 MG/TAB TAB SL PRN (06:01)
[2022-02-15] MEDS: MAGNESIUM SULFATE / D5W 1 GM/100 ML BAG IV SCH ×2 (06:12→07:49)
[2022-02-15] MEDS: SODIUM CHLORIDE 0.9% 1000ML 1,000 ML IV SCH ×2 (06:13→17:52)
[2022-02-15] MEDS ORDERED: INFLUENZA VACCINE HIGH DOSE PF 65+ 0.7 ML SYR IM ONE (06:33)
[2022-02-15] MEDS: LEVOTHYROXINE SODIUM 50 MCG TABLET PO SCH (06:43)
--- NOTE | 2022-02-15 07:04 | CT Scan Report ---
CT OF THE ABDOMEN AND PELVIS WITHOUT CONTRAST CLINICAL HISTORY: ANY BLEEDING. ANEMIA, ON COUMADIN COMPARISON STUDY: Abdominal series August 31, 2006. TECHNIQUE: Axial images of the abdomen and pelvis were obtained without IV contrast. Images were revi ewed in the axial, sagittal, and coronal planes. Automated exposure control was utilized for the santo dy. A dose lowering technique was utilized adhering to the principles of ALARA. FINDINGS: Please note that the chest CT will be reported separately. No pneumatosis, free air or port al venous gas is present. Cardiomegaly is noted. There is a prosthetic aortic valve. There is interlo bular septal thickening within the lower lungs. There is a probable 1.3 cm medial segment left hepati c lobe cyst. No biliary or pancreatic ductal dilatation is present. There is borderline splenomegaly. Contrast excretion within the collecting systems, ureters and bladder is noted from recent contrast- enhanced CT. A Brandon balloon within the bladder is present. Bladder wall thickening is accentuated by underdistention. Prostate is enlarged, measuring 6.6 cm in transverse dimension. Abdominal aorta is ectatic, measuring 2.6 cm in caliber. There is no retroperitoneal hematoma. There is no hemoperitoneu m. No abdominal or pelvic lymphadenopathy is noted. Note is made of a 8.2 cm sclerotic focus within t he right iliac bone. There is a 1.7 cm sclerotic lesion within the medial left iliac bone. There is n o evidence for a bowel obstruction. The appendix is normal. No acute fracture within the lumbar spine , pelvis or hips is identified. IMPRESSION: 1. No retroperitoneal hematoma. No hemoperitoneum. 2. No acute process within the abdomen or pelvis on unenhanced exam. 3. Sclerotic lesions within the bilateral iliac bones. This finding is nonspecific however skeletal m etastases are within the differential. Findings could be correlated with PSA level. This finding will be called/faxed to ordering provider at time of dictation. 4. Enlarged prostate. No lymphadenopathy. 5. No bowel obstruction. No bowel wall thickening on unenhanced exam. ACT 112: Negative or not required by law. Electronically signed by: Ricardo Chambers M.D. 02/15/2022 7:02 AM
--- NOTE | 2022-02-15 07:15 | CT Scan Report ---
HEAD CT NONCONTRAST CT DOSE: 2675.47 mGy.cm HISTORY: Altered mental status. Stroke Like Symptoms TECHNIQUE: Multiaxial CT images of the head were performed without the use of intravenous contrast. A utomated exposure control was utilized for this study. A dose lowering technique was utilized adheri ng to the principles of ALARA. Comparison: Head CT 08/06/2018. Findings: The mastoid air cells are clear. There is a small retention cyst within the left sphenoid s inus. Suboptimal evaluation of the brain due to motion artifact. The calvarium and skull base are int act. There is no mass, hematoma, midline shift, acute infarct. White matter hypodensity is nonspecifi c but suggestive of microvascular ischemic change. The ventricles and sulci demonstrate mild age-rela tj involutional changes. There is suggestion of an old lacunar infarct within the right cerebellar h emisphere. Impression: Significant motion artifact resulting in suboptimal evaluation. No definite acute intracranial abnorm ality. ACT 112: Negative or not required by law. Electronically signed by: Agus Lindo M.D. 02/15/2022 7:14 AM
--- NOTE | 2022-02-15 08:01 | History and Physical Report ---
DATE OF ADMISSION: 02/15/2022. CHIEF COMPLAINT: Altered mental status, agitation. HISTORY OF PRESENT ILLNESS: This is an 89-year-old male with past medical history significant for congenital bicuspid aortic valve, status post aortic bioprosthetic valve replacement, CAD status post CABG, aortic root ascending replacement, complete heart block requiring single-chamber pacemaker, chronic atrial fibrillation, hypertension, hyperlipidemia, hypothyroidism, BPH, migraines, presents with altered mental status. As per the , the patient was doing fine. He drove his car in the evening and there were no other symptoms. He was apparently doing fine. He complained of headache and he told her that he was going to get Tylenol at around 11:30 p.m. He went to get Tylenol and the next thing she heard was he had fallen down. He was close to the bathroom, and the patient was unresponsive. She called the family and EMS and the patient was brought in here. On the way, there was question of some facial droop and stroke alert was called. When the patient came to the ER, he was agitated and he was given Ativan and Haldol and became drowsy. Initial workup with CTA of the head and neck and CT of the head was unremarkable. Blood pressures were running high. He was put on 3 L OxyMask, saturating okay. His hemoglobin is 9.8, his recent hemoglobin was 14.6 last month. Sodium is 132, creatinine 0.9. Rest of the labs are okay. SARS-CoV-2 rapid test negative. As per the , there was no cough or fever and no other complaints before all this happened. Currently, the patient is drowsy, seems somewhat restless and the family is holding his legs, blood pressure somewhat running high. ALLERGIES: No known drug allergies. PAST MEDICAL HISTORY: As mentioned above. PAST SURGICAL HISTORY: Ascending aortic aneurysm graft, cardioversion, left atrial appendage clip performed, colonoscopy with biopsy, pacemaker implantation, needle and punch biopsy of the prostate, bioprosthetic aortic valve replacement. MEDICATIONS: The patient is on magnesium oxide 400 mg p.o. daily, metoprolol tartrate 25 mg p.o. b.i.d., Senokot 8.6 mg daily, Coumadin 5 mg on all days except for Friday when he takes 2.5 mg, vitamin B12 100 mcg daily, losartan 25 mg p.o. daily, levothyroxine 50 mcg p.o. daily, amoxicillin as directed, Tylenol p.r.n., vitamin D 1000 units p.o. daily. FAMILY HISTORY: Significant for father had lung cancer, asbestosis. Sister has skin cancer. SOCIAL HISTORY: , former smoker, quit in 1969, smoked for 6 years. Alcohol, rarely. No drug use. REVIEW OF SYSTEMS: As per HPI. Rest of the review of systems is negative. PHYSICAL EXAMINATION: GENERAL: The patient is currently drowsy and somewhat restless. VITAL SIGNS: Temperature 36.8, pulse 60, respiratory rate 18, blood pressure 177/84, oxygen 95% on 3 liters OxyMask. HEENT: Pupils equal, round and reactive to light. No obvious facial droop seen. NECK: No neck masses seen. CARDIOVASCULAR: S1 and S2 heard. Regular rate and rhythm. No murmur, no gallop. RESPIRATORY SYSTEM: Normal AP diameter. No accessory muscle use. No wheezing or crackles. ABDOMEN: Soft, bowel sounds present, no distention. CENTRAL NERVOUS SYSTEM: Drowsy, moving all extremities, somewhat restless. No obvious facial droop seen. EXTREMITIES: No edema, no erythema. LABORATORY DATA: WBC 7.08, hemoglobin 9.8, hematocrit 29.3, platelets 127. PT 18.5, INR 1.8, APTT 29.3. Sodium 132, potassium 3.6, chloride 102, bicarbonate 20, BUN 22, creatinine 0.95. Serum glucose 131, calcium 7.7, magnesium 1.6, total bilirubin 0.9, AST 19, ALT 14, alkaline phosphatase 70. Troponin I high sensitivity 8.7. SARS-CoV-2 rapid test negative. IMAGING DATA: CTA of the head and neck preliminary report unremarkable. CT of the head unremarkable. EKG: Ventricular paced rhythm at 63, poor quality. ASSESSMENT AND PLAN: This is an 89-year-old male who presents with altered mental status. 1. Altered mental status. The patient apparently fell down at home and was agitated in the ER. Received Ativan and Haldol. Currently sedated, but still restless. Initial workup with CTA of the head and neck and CT of the head were unremarkable. The patient has pacemaker. Not sure if it is MRI comfortable. We will order MRI for now. We will do full stroke workup with echo. Neurology evaluation. PT/OT and speech evaluation. Close monitoring in the tele floor.Also rule out seizures. EEG, IV Ativan prn 2. Anemia: Hemoglobin 9.8, hemoglobin was normal last month. He is on Coumadin. Currently, no obvious signs of bleeding. We will hold off on Coumadin and aspirin for now .Will get a CT chest and CT abdomen and pelvis or any occult bleed. 3. History of complete heart block, status post pacemaker, history of chronic atrial fibrillation, rate controlled with metoprolol. We will monitor. On Coumadin. INR is 1.8. Will follow PT/INR. Holding Coumadin for now. Continuation of Coumadin as per cardiology. No obvious signs of bleeding. 4. Hyperlipidemia. On statin. Follow lipid profile. 5. History of benign prostatic hypertrophy. Monitor for any urinary retention. 6. Status post bioprosthetic aortic valve replacement. 7. Coronary artery disease status post coronary artery bypass graft. Continue metoprolol and statin. Holding off aspirin for now. Will restart aspirin if no signs of bleding. 8. Hypertension: Continue losartan and metoprolol.Blood pressure running high, will allow for permissive hypertension for now.IV labetalol prn. 10. Hypothyroidism. On Synthroid . 11. Deep venous thrombosis prophylaxis: Sequential compression devices for now. INR is 1.8. DISPOSITION: Closely monitor in the tele floor. Level 1 full code as per my discussion with . PT/OT prior to discharge. Social service to help with discharge planning. Job ID: [id number] MTDD
--- NOTE | 2022-02-15 08:11 | CT Scan Report ---
CTA ANGIOGRAPHY OF THE HEAD CLINICAL HISTORY: Stroke Like Symptoms COMPARISON STUDY: Head CT performed earlier today. CTA of the head August 06, 2018. TECHNIQUE: Helical axial images of the head were obtained following uneventful intravenous administr ation of 116 cc of Optiray. Sagittal and coronal reconstructions were viewed as well as maximal inten sity projections on an independent 3-D workstation. Automated exposure control was utilized for the study. A dose lowering technique was utilized adhering to the principles of ALARA. FINDINGS: Please note that the CTA of the neck will be reported separately. Ventricular system is unr emarkable. Basal cisterns are patent. There are no extra axial collections. No acute intracranial hem orrhage is identified. There is moderate plaque within bilateral cavernous carotids without significa nt stenosis. The bilateral M1, M2, A1 and A2 segment are patent. There is no central vessel occlusion . No intracranial aneurysm is identified. Posterior circulation is intact. There is extensive plaque within the right carotid bifurcation without significant stenosis. This is better depicted on the nec k CTA. Mild sphenoid sinus polypoid mucosal thickening is present. IMPRESSION: No central vessel occlusion. No intracranial aneurysm. ACT 112: Negative or not required by law. Electronically signed by: Ricardo Chambers M.D. 02/15/2022 8:09 AM
--- NOTE | 2022-02-15 08:47 | CT Scan Report ---
NECK CTA HISTORY: Stroke Like Symptoms TECHNIQUE: Multiaxial CT images of the neck were performed following the intravenous administration o f contrast to evaluate the major cervical vessels. Maximum intensity projection images were also obta ined. All measurements were calculated based on NASCET criteria. A dose lowering technique was utili zed adhering to the principles of ALARA. COMPARISON STUDY: Neck CTA 08/06/2018. FINDINGS: The aortic arch and proximal great vessels are widely patent. Moderate focal stenosis at t he takeoff of the bilateral vertebral arteries due to the calcified plaque. There is also up to 50% s tenosis at the proximal bilateral internal carotid arteries due to the moderate calcified plaque. The bilateral common carotid arteries and mid to distal bilateral internal carotid arteries are widely p atent. No evidence for arterial dissection or occlusion. IMPRESSION: Mild to moderate stenosis within the bilateral proximal internal carotid arteries and proximal verteb ral arteries as described above due to the calcified plaque. No evidence for arterial occlusion. ACT 112: Negative or not required by law. Electronically signed by: Agus Lindo M.D. 02/15/2022 8:45 AM
[2022-02-15] MEDS: CHOLECALCIFEROL 1,000 UNITS 25 MCG TAB PO SCH (08:57)
[2022-02-15] MEDS: METOPROLOL TARTRATE 25 MG TAB PO SCH ×2 (08:58→20:11)
--- NOTE | 2022-02-15 09:50 | CT Scan Report ---
CT chest diagnostic wo con CT DOSE: 1439.71 mGy.cm HISTORY: Anemia. Assess for bleeding abnormality. TECHNIQUE: Multiaxial CT images of the chest were performed without contrast. A dose lowering techni que was utilized adhering to the principles of ALARA. COMPARISON: Chest CTA 07/27/2017. FINDINGS: Please refer to same day abdomen and pelvis CT for further evaluation of the abdominal stru ctures. There are suboptimal evaluation of the chest due to the respiratory motion artifact. The hear t remains mildly enlarged. Is left-sided pacemaker. Postoperative changes consistent with prior aorti c valve prosthesis and repair of an ascending thoracic aortic aneurysm. Mild dilatation of the [place] ascending thoracic aorta just beyond the site of repair measuring 4.4 cm in diameter. This remains u nchanged. Moderate calcified plaque within the thoracic aorta. There is contrast within the visualize d renal collecting systems from the prior CT examination. No pleural or pericardial effusion. No medi astinal hematoma or lymphadenopathy. Normal caliber esophagus. No pleural or pericardial effusions. T here are poststernotomy changes. Patchy sclerosis within the right lateral fifth rib which is new fro m the prior CT examination. Therefore, an osteoblastic metastatic lesion would be the diagnosis of ex clusion. No pneumothorax. The central airways are patent. There is a 3 mm subpleural nodule within th e lingula on image 160. Mild interstitial thickening/dependent changes noted at the lung bases. Mild interlobular septal thickening suggestive of mild congestive change. A 7 mm groundglass nodule within the right upper lobe on image 55. Mild nodular thickening along the right minor fissure, unchanged. This is likely benign. IMPRESSION: 1. No mediastinal hematoma identified. 2. Focal area of sclerosis within the right lateral fifth rib which is new from the prior CT examinat ion. An osteoblastic metastatic lesion would be the diagnosis of exclusion. 3. Mild interlobular septal thickening suggestive of mild congestive change. 4. Stable cardiomegaly. 5. A 7 mm groundglass nodule within the right upper lobe. Please refer to the chart below for recomme nded follow-up. 6. Postoperative changes as described above. There is mild aneurysmal dilatation of the [place] ascend ing thoracic aorta measuring up to 4.4 cm in diameter. This remains unchanged. Please refer to below summary of Fleischner criteria recommendations for follow-up of incidental CT n odules Analia Gibson, Guidelines for management of small pulmonary nodules detected on CT scans: A maria elena tement from the Fleischner Society, Radiology 237: [phone].) SOLID NODULES Solitary nodule size: <6 mm * Low risk patients: no follow-up needed * high risk patients: optional CT at 12 months Solitary nodule size: 6-8 mm * Low risk patients: follow-up at 6-12 months, then consider further follow-up at 18-24 months * high risk patients: initial follow-up CT at 6-12 months and then at 18-24 months if no change Solitary nodule size: >8 mm * either low or high risk patients - consider follow-up CT at 3 months, and/or CT-PET, and/or biopsy Multiple nodules size: <6 mm * Low risk patients: no routine follow-up * high risk patients: optional CT at 12 months Multiple nodules size: 6-8 mm * Low risk patients: follow-up at 3-6 months, then consider further follow-up at 18-24 months * high risk patients: follow-up at 3-6 months, then at 18-24 months if no change Multiple nodules size: >8 mm * Low risk patients: follow-up at 3-6 months, then consider further follow-up at 18-24 months * high risk patients: follow-up at 3-6 months, then at 18-24 months if no change Note: newly detected indeterminate nodule in persons 35 years of age or older. * Low risk patients: minimal or absent history of smoking and/or other known risk factors * high risk patients: history of smoking or of other known risk factors (e.g. first degree relative with lung cancer, or exposure to asbestos, radon, uranium) * if a nodule up to 8 mm is partly solid or is ground glass further follow-up is required after 24 m onths to exclude possible slow growing adenocarcinoma (JEAN) SUBSOLID NODULES Solitary pure ground-glass nodule * nodule size <6 mm - no CT follow-up required * nodule size >=6 mm - follow-up CT at 6-12 months, then every 2 years until 5 years Solitary part-solid nodule * nodule size <6 mm - no CT follow-up required * nodule size >=6 mm - follow-up CT at 3-6 months. If unchanged, and solid component remains <6 mm, then annual follow-up for 5 years Multiple subsolid nodules * nodule size <6 mm - follow-up CT at 3-6 months, consider further follow-up at 2 and 4 years if sta ble * nodule size >=6 mm - follow-up CT at 3-6 months, subsequent management based on the most suspiciou s nodule(s) ACT 112: Negative or not required by law. Electronically signed by: Agus Lindo M.D. 02/15/2022 9:48 AM
--- NOTE | 2022-02-15 10:59 | Cardiology Consultation ---
Date of Consultation February 15, 2022 Assessment & Plan (1) Altered mental state: (2) S/P AVR (aortic valve replacement): (3) Atrial fibrillation: (4) Pacemaker: (5) S/P aortic aneurysm repair: Plan Patient is an 89-year-old male with complex cardiovascular history as outlined. He has had history of congenital bicuspid aortic valve with aortic valve replacement in 1995 and redo surgery 2018 with bioprosthetic aortic valve and repair of a sending aortic aneurysm. Chronic atrial fibrillation is present with patient chronically anticoagulated and with INR of 1.8 on presentation. Past complete heart block with indwelling pacemaker. No acute cardiac decline by initial assessment No contraindications to MRI with adjustments as appropriate for pacemaker If no evidence of bleeding would resume anticoagulation History of Present Illness Reason for Consultation: Acute neurologic changes Requesting Physician: Dr Nath Attending Physician: Austin Nath MD History of Present Illness Patient is an 89-year-old male with complex cardiac issues which include 1. Congenitally bicuspid aortic valve 2. Severe aortic valve stenosis status post aortic valve replacement in 1995 with a #27 [employer]azares-Medtronic tilting mechanical prosthesis 3. 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 4. Status post June 12, 2017 redo sternotomy, aortic root and ascending aortic replacement with a bioprosthetic valve conduit 25 mm Magna valve, 30 mm 5. Coronary artery bypass grafting of the proximal RCA with a reverse saphenous vein graft, and AtriCure clipping of the left atrial appendage 6. Chronic atrial fibrillation and a left bundle branch block 7. Complete heart block requiring permanent single chamber pacemaker implantation on 06/18/2017 (Medtronic Advisa SR MRI [id number], SN: [id number], RV lead: Medtronic CapSureFix Novus MRI, SN:[id number] Patient seen in room unresponsive and process of an EEG. Currently hemodynamically stable. Son Delbert present and gives history of evening prior events. Per report patient was feeling well attended granddaughters volleyball game and drove home. Awakened from sleep with headache and attempted to head to the bathroom where he fell in route. 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 Initial CT head and chest and abdomen unrevealing Scheduled for MRI today Allergies Allergy/AdvReac Type Severity Reaction Status Date / Time No Known Allergies Allergy Verified 08/06/18 17:08 Home Medications Medication Instructions Recorded Confirmed Type acetaminophen 500 mg tablet 1,000 mg PO Q6H PRN pain or fever 08/06/18 08/06/18 History amoxicillin 500 mg capsule 2,000 mg PO DIRECTED PRN dental 08/06/18 08/06/18 History work aspirin 81 mg chewable tablet 81 mg PO DAILY 08/06/18 08/06/18 History cholecalciferol (vitamin D3) 50 2,000 unit PO DAILY 08/06/18 08/06/18 History mcg (2,000 unit) capsule (Vitamin D3) levothyroxine 50 mcg tablet 50 mcg PO DAILY 08/06/18 08/06/18 History metoprolol tartrate 25 mg tablet 25 mg PO BID 08/06/18 08/06/18 History simvastatin 20 mg tablet 20 mg PO HS 08/06/18 08/06/18 History warfarin 5 mg tablet 2.5 mg PO WK 08/06/18 08/06/18 History warfarin 5 mg tablet 5 mg PO [id number] 08/06/18 08/06/18 History Patient History Medical History (Updated 02/15/22 @ 11:05 by Jose Antonio Trejo MD) Thoracic aneurysm without mention of rupture Surgical History (Updated 02/15/22 @ 11:05 by Jose Antonio Trejo MD) History of open heart surgery Family History Other Family history non-contributory Social History Smoking Status: Never smoker Second Hand Exposure: No; Do You Dip or Chew Tobacco: No; Tobacco Cessation Education Requested by Patient: No Hx Alcohol Use: No Hx Substance Use: No Preferred Language: Niuean Communication Ability: Effective Field Hand Required: No Beliefs That Will Affect Care: None Current Living Situation: Family Other Information That Helps Us Care for You: No Feels Safe at Home: Yes Safety Concerns: Feels Safe At This Time Assistive Devices: None Physical Exam Constitutional: well developed and well nourished Somnolent ENMT: external ear and nose normal, oropharynx normal Respiratory: normal respiratory effort, lungs clear to auscultation Cardiovascular: Rate/Rhythm: regular rate (Paced rhythm) Heart Sounds: + murmur (Grade 2 over 6 systolic murmur) Vessels: no JVD Extremities: no edema Gastrointestinal (Abdomen): normal bowel sounds, soft, nontender, no hepatosplenomegaly Results & Data ([facility]) Vital Signs (Past 12 Hours) Vital Signs Temp Pulse Pulse Resp BP BP Pulse Ox 02/15/22 08:00 36.8 C 86 18 151/60 H 95 02/15/22 06:00 02/15/22 06:20 36.3 C L 65 18 155/77 H 96 02/15/22 05:22 60 18 130/64 95 02/15/22 04:32 60 18 112/59 L 95 02/15/22 04:00 60 18 177/84 H 94 02/15/22 02:46 62 19 208/116 H 98 02/15/22 02:17 64 18 170/102 H 96 02/15/22 02:16 95 02/15/22 01:32 36.8 C 66 19 181/116 H 99 O2 Del Method O2 Flow Rate 02/15/22 08:00 02/15/22 06:00 Room Air 02/15/22 06:20 Room Air 02/15/22 05:22 Room Air 02/15/22 04:32 Oxymask 3 02/15/22 04:00 Oxymask 3 02/15/22 02:46 Oxymask 3 02/15/22 02:17 Oxymask 3 02/15/22 02:16 Oxymask 3 02/15/22 01:32 Room Air Laboratory Results Laboratory Results - last 24 hr 02/15/22 02/15/22 02/15/22 01:01 01:01 01:01 WBC 7.08 RBC 3.27 L Hgb 9.8 L Hct 29.3 L MCV 89.6 MCH 30.0 MCHC 33.4 RDW Std Deviation 41.9 RDW Coeff of [place] 12.6 Plt Count 127 L MPV 11.0 Immature Gran % (Auto) 0.4 Neut % (Auto) 70.4 Lymph % (Auto) 20.6 [place] % (Auto) 7.9 Eos % (Auto) 0.4 Baso % (Auto) 0.3 Neut # (Auto) 4.98 Lymph # (Auto) 1.46 [place] # (Auto) 0.56 Eos # (Auto) 0.03 Baso # (Auto) 0.02 Immature Gran # (Auto) 0.03 H RBC Morphology Unremarkable PT 18.5 H INR 1.8 H APTT 29.3 PTT Ratio 1.1 Sodium 132 L Potassium 3.6 Chloride 102 Carbon Dioxide 20 L Anion Gap 10 BUN 22 Creatinine 0.95 Est Cr Clr Drug Dosing 61.3 Est GFR ( Amer) 81.9 Est GFR (Non-Af Amer) 70.7 BUN/Creatinine Ratio 23.2 H Glucose 131 H POC Glucose Calcium 7.7 L Magnesium 1.6 L Total Bilirubin 0.9 AST 19 ALT 14 Alkaline Phosphatase 63 Troponin I High Sens 10.7 Total Protein 6.2 Albumin 3.9 Globulin 2.3 L Albumin/Globulin Ratio 1.7 SARS-CoV-2, RNA, NAAT 02/15/22 02/15/22 02:20 07:47 WBC RBC Hgb Hct MCV MCH MCHC RDW Std Deviation RDW Coeff of [place]orgette Plt Count MPV Immature Gran % (Auto) Neut % (Auto) Lymph % (Auto) [place] % (Auto) Eos % (Auto) Baso % (Auto) Neut # (Auto) Lymph # (Auto) [place] # (Auto) Eos # (Auto) Baso # (Auto) Immature Gran # (Auto) RBC Morphology PT INR APTT PTT Ratio Sodium Potassium Chloride Carbon Dioxide Anion Gap BUN Creatinine Est Cr Clr Drug Dosing Est GFR ( Amer) Est GFR (Non-Af Amer) BUN/Creatinine Ratio Glucose POC Glucose 122 H Calcium Magnesium Total Bilirubin AST ALT Alkaline Phosphatase Troponin I High Sens Total Protein Albumin Globulin Albumin/Globulin Ratio SARS-CoV-2, RNA, NAAT NEGATIVE ECG Additional Comments: EKG and telemetry with ventricular paced rhythm (1) Altered mental state Altered mental status type: unspecified Qualified Code(s): R41.82 - Altered mental status, unspecified
--- NOTE | 2022-02-15 12:07 | Electroencephalogram ---
EEG Procedure Note Date of Service February 15, 2022 Start / End Times Start Time: 903 End Time: 923 Referring Physician Camille Zamudio History 89-year-old with history of altered mental status, possible seizure and stroke. Home Medication List Medication Instructions Recorded Confirmed Type acetaminophen 500 mg tablet 1,000 mg PO Q6H PRN pain or fever 08/06/18 08/06/18 History amoxicillin 500 mg capsule 2,000 mg PO DIRECTED PRN dental 08/06/18 08/06/18 History work aspirin 81 mg chewable tablet 81 mg PO DAILY 08/06/18 08/06/18 History cholecalciferol (vitamin D3) 50 2,000 unit PO DAILY 08/06/18 08/06/18 History mcg (2,000 unit) capsule (Vitamin D3) levothyroxine 50 mcg tablet 50 mcg PO DAILY 08/06/18 08/06/18 History metoprolol tartrate 25 mg tablet 25 mg PO BID 08/06/18 08/06/18 History simvastatin 20 mg tablet 20 mg PO HS 08/06/18 08/06/18 History warfarin 5 mg tablet 2.5 mg PO WK 08/06/18 08/06/18 History warfarin 5 mg tablet 5 mg PO 6XWK 08/06/18 08/06/18 History Inpatient Medication List Sodium Chloride (Nss 1000ml) 1,000 mls @ 100 mls/hr IV .Q10H DENAE Stop: 03/17/22 06:00 Last Admin: 02/15/22 06:13 Dose: 100 mls/hr Documented By: TABBY Levothyroxine Sodium (Levothyroxine Sodium 50 Mcg Tablet) 50 mcg PO DAILYBB DENAE Stop: 03/17/22 06:29 Last Admin: 02/15/22 06:43 Dose: Not Given Documented By: TABBY Metoprolol Tartrate (Metoprolol Tartrate 25 Mg Tab) 25 mg PO BID DENAE Stop: 03/17/22 08:59 Last Admin: 02/15/22 08:58 Dose: Not Given Documented By: ARCADIO Vitamin D (Cholecalciferol 1,000 Units 25 Mcg Tab) 2,000 units PO DAILY DENAE Stop: 03/17/22 08:59 Last Admin: 02/15/22 08:57 Dose: Not Given Documented By: ARCADIO Discontinued Medications Haloperidol Lactate (Haloperidol Lactate 5 Mg/Ml 1 Ml Vial) Confirm Administered Dose 5 mg .ROUTE .STK-MED ONE Stop: 02/15/22 01:07 Last Admin: 02/15/22 01:08 Dose: 5 mg Documented By: DEE Haloperidol Lactate (Haloperidol Lactate 5 Mg/Ml 1 Ml Vial) 5 mg IV NOW STA Stop: 02/15/22 01:43 Last Admin: 02/15/22 02:00 Dose: 5 mg Documented By: DEE Hydralazine HCl (Hydralazine Hcl 20 Mg/Ml Vial) 5 mg IV NOW ONE Stop: 02/15/22 03:09 Last Admin: 02/15/22 03:13 Dose: 5 mg Documented By: DEE Magnesium Sulfate/Dextrose (Magnesium Sulfate / D5w) 1 gm in 100 mls @ 50 mls/hr IV Q2H DENAE Stop: 02/15/22 08:59 Last Infusion: 02/15/22 10:02 Dose: 0 mls/hr Documented By: Admin: 02/15/22 07:49 Dose: 50 mls/hr Documented By: Infusion: 02/15/22 07:49 Dose: 50 mls/hr Documented By: Admin: 02/15/22 06:12 Dose: 50 mls/hr Documented By: TABBY Ioversol (Optiray 300 500ml) 116 ml IV ONCE ONE Stop: 02/15/22 02:19 Last Admin: 02/15/22 02:18 Dose: 116 ml Documented By: BRET Labetalol HCl (Labetalol Hcl Iv 5 Mg/Ml 20ml) 10 mg IV NOW STA Stop: 02/15/22 01:59 Last Admin: 02/15/22 02:13 Dose: 10 mg Documented By: DEE Co-signed By: AICHA Lorazepam (Lorazepam 2 Mg/2 Ml Syr) Confirm Administered Dose 2 mg .ROUTE .STK- MED ONE Stop: 02/15/22 01:06 Last Admin: 02/15/22 01:08 Dose: 1 mg Documented By: DEE Lorazepam (Lorazepam 2 Mg/2 Ml Syr) 1 mg IV NOW STA; Protocol Stop: 02/15/22 01:43 Last Admin: 02/15/22 01:58 Dose: 1 mg Documented By: DEE Lorazepam (Lorazepam 2 Mg/2 Ml Syr) 1 mg IV NOW STA; Protocol Stop: 02/15/22 04:00 Last Admin: 02/15/22 04:09 Dose: 1 mg Documented By: DEE Miscellaneous (Patient's Height &/Or Weight Needed) 1 each N/A NOW STA Stop: 02/15/22 00:54 Last Admin: 02/15/22 02:26 Dose: 1 each Documented By: DEE Description This is a 21 electrode EEG with a single channel dedicated to limited EKG. The electrodes were placed in accordance with the International 10-20 system. Interpretation The predominant background activity consists of an Irregular 6 Hz activity, of up to 30 mV in amplitude,seen symmetrically distributed over the posterior head regions bilaterally, spreading anteriorly diffusely. This activity attenuates some with eye-opening and other alerting procedures. in addition, there was some low amplitude fast activity superimposed overall head regions intermittently throughout the recording ( 15 hertz). Photic stimulation was performed and elicited no change in the background acti vity and no abnormal responses were seen. Hyperventilation was not performed. A minimal amount of muscle and movement artifact activity , as well as some electrode artifact, contaminated the recording and did not hinder interpretation to any significant degree. Throughout the waking portion of the recording, no focal abnormalities, abnormal slow activity, or potentially epileptogenic discharges are seen. The patient entered the drowsy state with no further activation. In summary, this EEG was abnormal in that there was some mildly slow generalized background activity. No focal abnormalities are potentially epileptogenic discharges were seen. The patient entered the drowsy state with no further activation. Clinical Correlation The abscence of potentially epileptogenic activity does not exclude a seizure disorder, since interictally, EEGs can be normal. Clinical correlation is required. The mildly slow generalized background activity could be consistent with a mild encephalopathy ( from a wide variety of causes ). [facility] EEG Procedure Codes Indication for Procedure (1) Seizure-like activity: (2) Altered mental state:
--- NOTE | 2022-02-15 13:17 | Magnetic Resonance Report ---
MR brain wo/w con CLINICAL HISTORY: CVA? Acute change in mental status, found down on floor. TECHNIQUE: Multiplanar and multisequence MR images of the brain were obtained prior to and following administration of gadolinium contrast. Comparison: Comparison is made to CTA head and neck 02/15/2022 FINDINGS: Exam is limited by patient motion. There is thickening and T2 signal in the falx. There are a few foc i of restricted diffusion at the vertex. The white matter is unremarkable. Ex vacuo ventriculomegaly and sulcal enlargement is noted compatible with diffuse encephalomalacia. No mass or abnormal enhance ment is seen. There is no mass effect or midline shift. No abnormal GRE signal is seen at the site of T2 hyperintensity. No extra axial fluid collections are seen. The corpus callosum, pituitary gland, and cerebellar tonsils appear grossly unremarkable. Flow voids of the major intracranial arterial vessels are identified. The imaged portions of the para nasal sinuses, mastoid air cells, and orbits are unremarkable. IMPRESSION: Findings are compatible with a small bilateral subdural hemorrhage at the vertex with extension into the falx. This appears to be hyperacute to acute. Recommend continued CT follow-up. ACT 112: Negative or not required by law. Electronically signed by: Galindo Winchester M.D. 02/15/2022 1:15 PM
[2022-02-15] MEDS ORDERED: PHYTONADIONE 10 MG in DEXTROSE 5% 50 ML IV ONE (14:00)
--- NOTE | 2022-02-15 14:11 | Neurology Consultation ---
Date of Consultation February 15, 2022 Assessment & Plan (1) Subdural hematoma, nontraumatic: (2) Altered mental state: (3) Atrial fibrillation: (4) Pacemaker: Plan this patient had the acute onset of headache with some confusion and agitation late February 14. Imaging studies revealed a broad bilateral/ diffuse subdural hematoma on MRI (but interestingly not very obvious on CT). The patient had been having some intermittent headaches for a couple weeks prior and some of the hemorrhage may be subacute as opposed to acute. He does not seem to have any large collection of blood ( very thin diffusely around the hemispheres) or obvious source of bleeding such as an aneurysm. This was likely a spontaneous bleed from Coumadin, possibly exacerbated by hypertension. His blood pressure was elevated when he came to the emergency room. I do not know this was primary or secondary. Currently he has no focal signs on examination. He does have a little in cephalopathy left knee is much improved. The encephalopathy was likely secondary to lorazepam and he is probably recovering some from this. Recommendations: 1. Stop all anticoagulation and antiplatelet medication. 2. control blood pressure as you are doing, aiming for a mean arterial pressure of 95-100. 3. consider repeat CT scan in a day or so and repeat MRI of the brain next week. overall, I spent a total of 90 minutes with this case including review of records, review of CT and MRI films ( with Dr. Trujillo in Radiology) direct evaluation the patient bedside, and discussion of the case with the RN at bedside, the patient and his family at bedside, and Dr. Nath, including differential diagnosis and treatment options. History of Present Illness Reason for Consultation: patient is an 89-year-old, who I was asked to see at the request of Dr. Zamudio, neurologic consultation regarding acute unresponsive episode. Requesting Physician: Dr. Zamudio Attending Physician: Austin Nath MD History of Present Illness This patient has a history of atrial fibrillation status post pacemaker placed about 7 years ago. He has been on Coumadin ever since. The patient was on 81 mg aspirin but the tells me that they stop this sometime in the recent past ( for unknown reasons). He has a history of hypertension and dyslipidemia. 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 Patient's and [id number] told me that the patient has been having some intermittent headaches and possible vision issues over the last 2 or 3 weeks intermittently. He really has been doing well with no significant symptoms and has been functioning quite on a normal level. On February 14 he woke and had breakfast as usual. He did his usual activities and did very well. He went to a vol[employer]hop[employer] game to see the granddaughter at 5:00 p.m. getting home around 7:30 p.m.. He was still feeling well. He ate ice cream, read, and went to bed around 8:30 p.m.. He had no headaches that day. He awoke around 11:30 p.m. and told his he was going to the bathroom to get Tylenol for headache. then heard a crash in the bathroom and something was knocked off the shelf. He was found standing, leaning over the toilet clutching with his hands tightly and having stiff legs. His eyes were open and he would say a few words but was not really following commands. He did not have any stiffening or jerking of the limbs otherwise, had no tongue biting or incontinence of urine, or foaming at the mouth. EMS arrived in he was a little agitated and would say words like "stop". He recognize 1 of his sons but not the other. He arrived to the emergency room on February 15 at 1:32 a.m., the temperature 36.8, pulse 66 regular, respiratory rate 19, blood pressure 181/116, and O2 saturation 99%. He was described as confused and agitated with no focal neurologic deficits. He was given 5 mg of Haldol and a total of 2 mg of Ativan. He then became more unresponsive. A CT scan of the head was unremarkable. CT angiography of the head neck revealed some calcified plaque in the cavernous portions of the internal carotid arteries bilaterally with no significant stenoses or aneurysms. CBC showed anemia and Chem profile showed slightly low sodium and magnesium. Glucose was 137. echocardiogram this morning showed moderate left ventricular hypertrophy any saw Dr. Trejo, infrastructure project manager, who felt or no acute cardiac issues. MRI of the brain showed diffuse subdural hemorrhage bilaterally of a very thin nature. There may have been a thicker portion at the top of the head but no obvious aneurysms were seen. Interestingly the bleeding was not very prominent on the CT scan although you could see a little bit. I reviewed all the CT and MRI films with Dr. Trujillo in Radiology. In interviewing the patient at around 1300 this afternoon, he was waking up and he was more oriented and was not having any pain or headache. Allergies Allergy/AdvReac Type Severity Reaction Status Date / Time No Known Allergies Allergy Verified 08/06/18 17:08 Home Medications Medication Instructions Recorded Confirmed Type acetaminophen 500 mg tablet 1,000 mg PO Q6H PRN pain or fever 08/06/18 08/06/18 History amoxicillin 500 mg capsule 2,000 mg PO DIRECTED PRN dental 08/06/18 08/06/18 History work aspirin 81 mg chewable tablet 81 mg PO DAILY 08/06/18 08/06/18 History cholecalciferol (vitamin D3) 50 2,000 unit PO DAILY 08/06/18 08/06/18 History mcg (2,000 unit) capsule (Vitamin D3) levothyroxine 50 mcg tablet 50 mcg PO DAILY 08/06/18 08/06/18 History metoprolol tartrate 25 mg tablet 25 mg PO BID 08/06/18 08/06/18 History simvastatin 20 mg tablet 20 mg PO HS 08/06/18 08/06/18 History warfarin 5 mg tablet 2.5 mg PO WK 08/06/18 08/06/18 History warfarin 5 mg tablet 5 mg PO 6XWK 08/06/18 08/06/18 History Patient History Medical History (Updated 02/15/22 @ 14:30 by Rajan Fontanez MD) Thoracic aneurysm without mention of rupture Surgical History (Updated 02/15/22 @ 11:05 by Jose Antonio Trejo MD) History of open heart surgery Family History Other Family history non-contributory Social History Smoking Status: Never smoker Second Hand Exposure: No; Do You Dip or Chew Tobacco: No; Tobacco Cessation Education Requested by Patient: No Hx Alcohol Use: No Hx Substance Use: No Preferred Language: Italian Communication Ability: Effective Fitness Coordinator Required: No Beliefs That Will Affect Care: None Current Living Situation: Family Other Information That Helps Us Care for You: No Feels Safe at Home: Yes Safety Concerns: Feels Safe At This Time Assistive Devices: None Review of Systems Review of Systems: Patient had a difficult time with review of systems could see was still little bit sleepy. He denied pain or headaches, vision problems, weakness or numbness of the limbs. He did say he was a little bit "woozy". Exam (Neuro) Physical Exam: The patient is right-handed. The patient is Relatively awake, alert, and attentive. Speech is normal without any aphasia or dysarthria. The patient can name objects, repeat phrases, but has little spontaneous speech. he follows one-step commands very well and seemed oriented to person, and time. He recognized me. his mood is reasonable and his affect is appropriate. Pupils are 3 mm bilaterally and reactive to light. Extraocular eye muscles are intact without nystagmus. Visual acuity and visual cox seem normal grossly to confrontation. There are no deficits to sensation in the face in all 3 distributions of the fifth cranial nerve bilaterally. Corneal reflexes are positive bilaterally. Facial strength and symmetry was normal bilaterally. Hearing seems normal bilaterally. Palate moves well without asymmetry. There is normal sternocleidomastoid and trapezius (shoulder shrug) strength bilaterally. Tongue is midline with good strength bilaterally. Neck has a full range of motion without discomfort. There are no cervical bruits bilaterally. There are no cranial or ocular bruits. Heart is without murmur. There is a regular rhythm and rate. Cervical, thoracic, and lumbar spine are nontender to palpation. Gait Was not tested. He was not put in a sitting position either. With outstretched arms there is no drift. There are no resting, postural, or action tremors. There is no ataxia with finger to nose testing. There is good facility in the hands. No other abnormal involuntary movements are noted. Motor strength is 5/5 diffusely in the arms bilaterally including deltoids, biceps, triceps, brachioradialis, wrist flexors and extensors, senior site manager, and intrinsic hand muscles. Motor strength is 5/5 diffusely in the legs bilaterally including hip flexors, quadriceps, hamstrings, gastrocnemius, tibialis anterior, tibialis posterior, and Peroneii muscles. Toe extensors are normal and there is good bulk in the extensor digitorum brevis muscles bilaterally. The limbs have good tone without rigidity or spasticity. There is no atrophy noted in the muscles. Muscle bulk is normal, there is no tenderness to palpation, no myotonia to percussion, and no fasciculations seen. Sensory examination is intact to touch and pin throughout all 4 limbs diffusely. Reflexes are 1/4 in the biceps, triceps, brachioradialis, quadriceps, and Achilles tendons bilaterally. There is no clonus bilaterally. Toes are downgoing with plantar stimulation bilaterally. Peripheral pulses are present and of normal quality distally in all 4 limbs. There is no peripheral edema noted in the limbs. Results & Data ([facility]) Vital Signs (Past 12 Hours) Vital Signs Temp Pulse Pulse Resp BP BP Pulse Ox 02/15/22 11:58 36.9 C 74 16 149/71 H 96 02/15/22 08:00 36.8 C 86 18 151/60 H 95 02/15/22 06:00 02/15/22 06:20 36.3 C L 65 18 155/77 H 96 02/15/22 05:22 60 18 130/64 95 02/15/22 04:32 60 18 112/59 L 95 02/15/22 04:00 60 18 177/84 H 94 02/15/22 02:46 62 19 208/116 H 98 02/15/22 02:17 64 18 170/102 H 96 02/15/22 02:16 95 O2 Del Method O2 Flow Rate 02/15/22 11:58 02/15/22 08:00 02/15/22 06:00 Room Air 02/15/22 06:20 Room Air 02/15/22 05:22 Room Air 02/15/22 04:32 Oxymask 3 02/15/22 04:00 Oxymask 3 02/15/22 02:46 Oxymask 3 02/15/22 02:17 Oxymask 3 02/15/22 02:16 Oxymask 3 PG Care Time/CCT Total # of Minutes Spent Total Time Spent with Patient: Total time spent is greater than 50% in coordination of care (as documented) at patient's floor/unit and/or counseling patient Coding Level of Care Code 73610 Initial Inpt Care Lvl 3 Diagnoses Subdural hematoma, nontraumatic I62.00 Altered mental state R41.82 Altered mental status type: unspecified Atrial fibrillation I48.91 Pacemaker Z95.0 Time Spent (min) 90 Comment Add modifiers as needed. (1) Altered mental state Altered mental status type: unspecified Qualified Code(s): R41.82 - Altered mental status, unspecified
--- NOTE | 2022-02-15 14:44 | Communication Note ---
Date of Service: February 15, 2022 Patient seen and examined multiple times during the day. In the morning, he was undergoing EEG. He was lethargic; not waking up to any verbal stimuli. He moved his hands and leg grossly to noxious stimuli. During the afternoon, he was more awake. He was able to answer more questions and follow one-step commands. No focal deficit was appreciated. MRI of the brain reviewed and discussed with radiologist. Patient has diffuse subdural hematoma bilaterally which is very thin. Discussed with neurology regarding the findings.Recommended to hold anticoagulation and antiplatelet agent. Hold any sedatives. Repeat imaging in the morning. Discussed with Dr. Mclaughlin from anticoagulation clinic regarding reversal for Coumadin. Patient's INR in the morning was 1.8. Given that patient's INR is less than 2, recommended IV vitamin K 10 mg once and repeat INR in few hours One-to-one monitor ordered. Neurochecks every 2 hours. Tighter blood pressure control with systolic blood pressure less than 160. Labetalol as needed every 4 hours. swallow evaluation ordered. Zyprexa as needed for agitation. Avoid any benzodiazepines.
[2022-02-15] MEDS: OLANZapine 10 MG/2.1 ML SDV IM SCH ×3 (15:10→22:44)
[2022-02-15] MEDS: LABETALOL HCL IV 5 MG/ML 20ML IV PRN ×2 (15:47→20:12)
[2022-02-15] MEDS ORDERED: OLANZapine 10 MG/2.1 ML SDV IM STA (16:10)
[2022-02-15] MEDS ORDERED: HALOPERIDOL LACTATE 5 MG/ML 1 ML VIAL IM ONE (16:59)
[2022-02-15] MEDS ORDERED: LORazepam 0.5 MG in SYRINGE 0.125 ML IV STA (17:01)
[2022-02-15 17:25] LABS: INR 1.5 (0.9-1.1); Prothrombin Time 15.2 Seconds (9.0-12.0)
[2022-02-15] MEDS ORDERED: LORazepam 0.5 MG in SYRINGE 0 ML IV PRN (18:24)
[2022-02-15] MEDS: SIMVASTATIN 20 MG TAB PO SCH (20:11)
--- NOTE | 2022-02-15 21:25 | Electrocardiogram Report ---
Test Reason : Blood Pressure : / mmHG Vent. Rate : 063 BPM Atrial Rate : 065 BPM P-R Int : 000 ms QRS Dur : 190 ms QT Int : 522 ms P-R-T Axes : 000 -65 076 degrees QTc Int : 534 ms Poor data quality, interpretation may be adversely affected Ventricular-paced rhythm Abnormal ECG When compared with ECG of 06-AUG-2018 18:12, Vent. rate has increased BY 2 BPM Confirmed by Reyes Cordova ([id number]) on 02/15/2022 9:24:53 PM Referred By: REFERRED SELF Confirmed By:Reyes Cordova
[2022-02-15] MEDS: HALOPERIDOL LACTATE 5 MG/ML 1 ML VIAL IM PRN (21:34)
[2022-02-16] MEDS: OLANZapine 10 MG/2.1 ML SDV IM SCH ×6 (03:15→23:27)
[2022-02-16] MEDS: HALOPERIDOL LACTATE 5 MG/ML 1 ML VIAL IM PRN (05:18)
[2022-02-16] MEDS: LEVOTHYROXINE SODIUM 50 MCG TABLET PO SCH (05:47)
--- NOTE | 2022-02-16 06:37 | CT Scan Report ---
CT SCAN OF THE BRAIN WITHOUT IV CONTRAST CLINICAL HISTORY: Follow-up subdural hemorrhage. COMPARISON STUDY: CT and MRI of the brain dated 02/15/2010. TECHNIQUE: Unenhanced axial CT scan of the brain is performed from the vertex to the skull base. A do se lowering technique was utilized adhering to the principles of ALARA. CT DOSE: 1381.76 mGy.cm FINDINGS: Brain parenchyma: There is trace residual subdural seen along the left convexity on axial image #12. This measures up to 2 mm in diameter. There is no associated mass effect. Subdural hemorrhage previou sly seen along the right convexity in the midline falx is no longer visualized. There is age-related involutional change noting mild subcortical and periventricular microangiopathic disease. There is no parenchymal hematoma, mass effect, or evidence of acute territorial ischemia by CT criteria. Evans-wh ite matter differentiation is preserved. Ventricles, sulci, cisterns: Prominent secondary to involutional change. Intracranial vasculature: There is atherosclerotic calcification of the cavernous carotid and vertebr al arteries. Calvarium: Unremarkable. Sinuses and mastoids: A 1.3 cm retention cyst is noted in the left maxillary antrum. Trace mucosal th ickening is seen in the right maxillary antrum. The remaining paranasal sinuses are clear. The mastoi d air cells are well pneumatized. Orbits: The bony orbits are grossly intact. There are bilateral ocular lens implants. IMPRESSION: 1. There is trace residual subdural hemorrhage seen along the left convexity. 2. Subdural blood seen along the right convexity and along the midline falx seen on yesterday's MRI i s no longer visualized. 3. There is no mass effect or evidence of acute territorial ischemia by CT criteria. ACT 112: Negative or not required by law. Electronically signed by: Ken Trujillo M.D. 02/16/2022 6:34 AM
[2022-02-16] MEDS: CHOLECALCIFEROL 1,000 UNITS 25 MCG TAB PO SCH (07:56)
[2022-02-16] MEDS: METOPROLOL TARTRATE 25 MG TAB PO SCH ×2 (07:56→20:45)
[2022-02-16] MEDS: LABETALOL HCL IV 5 MG/ML 20ML IV PRN (07:59)
[2022-02-16] MEDS ORDERED: hydrALAZINE HCL 20 MG/ML VIAL IV PRN (08:36)
--- NOTE | 2022-02-16 12:13 | Neurology Progress Note ---
Date of Service February 16, 2022 Assessment & Plan (1) Subdural hematoma, nontraumatic: (2) Seizure-like activity: (3) Atrial fibrillation: Plan: 89-year-old male with a complicated cardiovascular history including aortic valve replacement, aortic aneurysm repair, pacemaker, atrial fibrillation on warfarin, presenting with altered mental status, seizure-like episode, found to have nontraumatic bilateral subdural hematoma on MRI, without associated mass- effect, stable on follow-up CT of the head completed this morning. Patient's warfarin was discontinued, he was treated with IV vitamin K. An EEG completed yesterday revealed mild background slowing suggestive of nonspecific encephalopathy, and was negative for epileptiform abnormalities. He has been evaluated by cardiology, Dr. Trejo, and neurology, Dr. Fontanez yesterday. Patient's warfarin and low-dose aspirin have been discontinued. He has not had any further seizure-like or strokelike episodes although he remains somewhat lethargic and irritable. Patient should remain off anticoagulant and antiplatelet medications at this time. Continue to monitor for any further potential seizure-like episodes. Continue to monitor patient's mental status and lethargy. He remains irritable and perhaps mildly encephalopathic. He has been afebrile and had a normal white blood cell count yesterday, no obvious signs of infection. Would recommend obtaining a follow-up brain MRI with and without gadolinium enhancement in 1 to 2 weeks to ensure stability/resolution. If the patient exhibits significant decline in neurologic status would recommend obtaining an urgent noncontrast CT of the head in that context. Because patient's imaging has revealed evidence of bleeding, coupled with patient's history of hypertension that may be suboptimally controlled, and age greater than 65, he may be at at least moderate risk for additional major bleeding events going forward with resumption of anticoagulant therapy. Would follow-up with cardiology, Dr. Trejo, regarding whether or not patient may safely restart his anticoagulant and/or ASA in the context of his complex cardiac history. Admission and Anticipated Discharge Date Admission Date: February 15, 2022 Subjective Follow-up for subdural hematoma Family at bedside, patient has been modestly agitated when awake, generally fatigued and somnolent, however, apparently did not get a good night sleep. Denies headache or other specific or focal neurologic symptom at this time. I had reviewed the circumstances of his initial presentation with his family indicating that he has been experiencing a bothersome low-grade headache for several days, prior to apparently being found altered, in the bathroom, by family members, was rigidly clutching the back of the commode, staring forward, unresponsive. He apparently slumped to the floor and per EMS was confused and was exhibiting right facial droop. He was agitated and combative during his initial assessment. The patient is amnestic for these events. A CT of the head and neck was completed. CTA of the head negative for central vessel occlusion or aneurysm. 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 A brain MRI revealed findings suggestive of small acute bilateral subdural hemorrhage at the vertex with extension into the falx cerebri. I did independently review the images. There is a focal area of restricted diffusion at the right vertex with an associated area of decreased signal and corresponding ADC map. There is no obvious blooming artifact on susceptibility weighted imaging. On T1 axial sequences, there is an area of increased signal along the right vertex corresponding with the abnormality on DWI. There is also evidence of increased T1 signal along the meninges, overlying the left temporal and right anterior temporal lobes. The meningeal enhancement/increased signal is more obvious on coronal FLAIR sequences and is seen overlying the left temporoparietal region, falx, and anterior right temporal lobe. There is generalized atrophy. The follow-up CT of the head completed this morning reveals trace residual subdural hemorrhage along the left convexity. Subdural blood along the right convexity and midline falx no longer visualized. An EEG completed yesterday revealed mild background slowing, no epileptiform abnormalities. Review of Systems Review of Systems: Difficulty with review of symptoms due to lethargy. Constitutional: + daytime sleepiness; no fever Eyes: + corrective lenses Neurologic: as per Subjective / HPI and + headache(s) Results & Data ([facility]) Vital Signs (Past 12 Hours) Vital Signs Temp Pulse Resp BP BP Pulse Ox O2 Del Method 02/16/22 11:14 36.5 C 60 16 113/69 98 Room Air 02/16/22 08:02 36.3 C L 89 16 175/85 H 95 Room Air 02/16/22 03:45 36.6 C 59 L 18 160/70 H 98 Room Air Laboratory Results Labs completed yesterday reviewed. WBC 7.08, hemoglobin 9.8, hematocrit 29.3, MCV 89.6, platelet count 127, sodium 132, potassium 3.6, BUN 22, creatinine 0.95, glucose 131, calcium 7.7, magnesium 1.6, AST 19, ALT 14, SARS-CoV-2 negative. INR yesterday 1.5. Diagnostic Findings Imaging results are as described above. I reviewed the images as well as the radiologist's interpretation of these tests. An echocardiogram completed yesterday revealed normal left ventricular size, moderate concentric left ventricular hypertrophy, apical wall motion abnormality may reflect pacemaker activation, no regional wall motion abnormalities noted, left ventricular systolic function normal, EF 60 to 65%, bioprosthetic aortic valve present with abnormal gradient, moderate to severe mitral regurgitation. EEG completed yesterday revealed mild slowing of the background rhythm, no epileptiform abnormalities. Exam (Neuro) Neurologic: Oriented to:: Person and Place; negative Time Attention: negative Span Intact or Concentration Intact Speech Fluency: negative Dy sarthria or Dysfluency Fund of Knowledge: Vocabulary Cranial Nerves: Normal II, III, IV, and VII Motor Strength: Normal Lower Extremities and Normal Upper Extremities Muscle Bulk/Involuntary Movements: No Involuntary Movements Coordination: Finger-Nose Abnormal Coding Level of Care Code 67993 Subseq Hosp Care Lvl 3 Diagnoses Subdural hematoma, nontraumatic I62.00 Seizure-like activity R56.9 Atrial fibrillation I48.91
--- NOTE | 2022-02-16 12:50 | Hospitalist Progress Note ---
Date of Service February 16, 2022 Assessment & Plan (1) Subdural hematoma, nontraumatic: (2) Atrial fibrillation: (3) S/P AVR (aortic valve replacement): (4) Altered mental state: Plan Patient is a 89-year-old male with past medical history of complete heart block status post pacemaker, atrial fibrillation on Coumadin, hyperlipidemia, BPH, status post bioprosthetic valve placement, CAD status post CABG, hypertension, hypothyroidism presents to the hospital with acute onset of altered mental status. CT head, CT head and neck angio were unremarkable for acute abnormality. MRI brain was done; findings were compatible with small bilateral subdural hematoma at the vertex with extension into the falx. Patient was given 10 mg of IV vitamin K for reversal of Coumadin as per the recommendation by Dr. Mclaughlin. Repeat without without contrast was done in the morning of 02/16 which showed trace residual subdural hematoma along left convexity. Altered mental status Subdural hematoma Atrial fibrillation on Coumadin status post vitamin K on 02/15 Persistently hypertensive requiring multiple dose of labetalol. He is afebrile and saturating well on room air --Repeat PT/INR is 1.5 on 02/15 after dose of vitamin K daily. Awaiting labs today --MRI brain as above. Repeat CT head shows trace residual subdural hemorrhage up to 2 mm. No mass-effect seen --EEG shows mildly slow generalized background abnormality; no focal abnormalities Plan; Continue treatment for delirium with frequent reorientation. Haldol as necessary; corrected QTC less than 500 ms. Avoid benzodiazepine. Avoid Coumadin and aspirin. He will need follow-up with cardiology as outpatient to determine long-term safety of both. Blood pressure control with labetalol; as needed hydralazine added at a very low dose as patient continues to be hypertensive -Neurochecks every 2 hours; repeat scan if change in mental status or focal deficit -SOLE TIER eval when more alert. We will continue IV hydration for now. Discussed plan with son at bedside. Answered question. Full code [id number] Admission and Anticipated Discharge Date Admission Date: February 15, 2022 Subjective Patient seen and examined at bedside. He continues to be agitated; requiring several doses of Haldol overnight. He is able to tell his name, date of and recognizes family at bedside. He is able to follow simple commands and move all his extremities. He is not oriented to time and place. He is not able to describe the event leading up to his hospitalization. Unable to obtain any morning labs. Review of Systems Review of Systems: Unobtainable due to cognitive status Physical Exam Physical Exam: Constitutional: Sedated; requires frequent reorientation. Oriented to self. Respiratory: normal respiratory effort, lungs clear to auscultation, no wheeze, rales, rhonchi. Normal insp/exp effort, no accessory muscle use Cardiovascular: RRR, no murmur, no edema Vessels: no JVD or carotid bruit Chest: Pacemaker in place. Abdomen: normal bowel sounds, soft, nontender, no hepatosplenomegaly Musculoskeletal: no cyanosis or clubbing, extremities motor strength 5/5 Skin: no rashes, warm and dry normal turgor Neurologic: PERRL, EOMI, accommodation nl, no face palsy, no dysarthria CN's II- XI intact bilaterally and moves all extremities Psychiatric: A+Ox3, euthymic affect Lymphatic: no cervical or axillary lymphadenopathy : deferred Results & Data Results & Data ([facility]) Vital Signs (Past 12 Hours) Vital Signs Temp Pulse Resp BP BP Pulse Ox O2 Del Method 02/16/22 11:14 36.5 C 60 16 113/69 98 Room Air 02/16/22 08:02 36.3 C L 89 16 175/85 H 95 Room Air 02/16/22 03:45 36.6 C 59 L 18 160/70 H 98 Room Air Laboratory Results Laboratory Results WBC 7.08 K/ul (4.8-10.8) 02/15/22 01:01 RBC 3.27 M/uL (4.63-6.08) L 02/15/22 01:01 Hgb 9.8 g/dl (14.0-18.0) L 02/15/22 01:01 Hct 29.3 % (40.1-51.0) L 02/15/22 01:01 MCV 89.6 fL (80.0-100.0) 02/15/22 01:01 MCH 30.0 pg (25.0-34.0) 02/15/22 01:01 MCHC 33.4 g/dL (32.0-36.0) 02/15/22 01:01 RDW Std Deviation 41.9 fL (36.4-46.3) 02/15/22 01:01 RDW Coeff of Georgette 12.6 % (11.5-14.5) 02/15/22 01:01 Plt Count 127 K/uL (130-400) L 02/15/22 01:01 MPV 11.0 fL (9.4-12.4) 02/15/22 01:01 Immature Gran % (Auto) 0.4 % 02/15/22 01:01 Neut % (Auto) 70.4 % 02/15/22 01:01 Lymph % (Auto) 20.6 % 02/15/22 01:01 [place] % (Auto) 7.9 % 02/15/22 01:01 Eos % (Auto) 0.4 % 02/15/22 01:01 Baso % (Auto) 0.3 % 02/15/22 01:01 Neut # (Auto) 4.98 K/uL (1.4-6.5) 02/15/22 01:01 Lymph # (Auto) 1.46 K/uL (1.2-3.4) 02/15/22 01:01 [place] # (Auto) 0.56 K/uL (0.24-0.82) 02/15/22 01:01 Eos # (Auto) 0.03 K/uL (0-0.50) 02/15/22 01:01 Baso # (Auto) 0.02 K/uL (0-0.2) 02/15/22 01:01 Immature Gran # (Auto) 0.03 K/uL (0.00-0.02) H 02/15/22 01:01 RBC Morphology Unremarkable 02/15/22 01:01 PT 15.2 Seconds (9.0-12.0) H 02/15/22 16:56 INR 1.5 (0.9-1.1) H 02/15/22 16:56 APTT 29.3 Seconds (21.0-31.0) 02/15/22 01:01 PTT Ratio 1.1 02/15/22 01:01 Sodium 132 mmol/L (136-145) L 02/15/22 01:01 Potassium 3.6 mmol/L (3.5-5.1) 02/15/22 01:01 Chloride 102 mmol/L (98-107) 02/15/22 01:01 Carbon Dioxide 20 mmol/L (21-32) L 02/15/22 01:01 Anion Gap 10 (3-11) 02/15/22 01:01 BUN 22 mg/dl (6-23) 02/15/22 01:01 Creatinine 0.95 mg/dl (0.6-1.4) 02/15/22 01:01 Est Cr Clr Drug Dosing 61.3 ml/min 02/15/22 01:01 Est GFR ( Amer) 81.9 ml/min 02/15/22 01:01 Est GFR (Non-Af Amer) 70.7 ml/min 02/15/22 01:01 BUN/Creatinine Ratio 23.2 (10-20) H 02/15/22 01:01 Glucose 131 mg/dl (70-99(Fasting)) H 02/15/22 01:01 POC Glucose 113 mg/dl (70-99) H 02/16/22 11:43 Calcium 7.7 mg/dl (8.5-10.1) L 02/15/22 01:01 Magnesium 1.6 mg/dl (1.7-2.4) L 02/15/22 01:01 Total Bilirubin 0.9 mg/dl (0.2-1.0) 02/15/22 01:01 AST 19 U/L (13-39) 02/15/22 01:01 ALT 14 U/L (7-52) 02/15/22 01:01 Alkaline Phosphatase 63 U/L (34-104) 02/15/22 01:01 Troponin I High Sens 10.7 pg/ml (0-20) 02/15/22 01:01 Total Protein 6.2 gm/dl (6.0-8.3) 02/15/22 01:01 Albumin 3.9 gm/dl (3.4-5.0) 02/15/22 01:01 Globulin 2.3 gm/dl (2.5-4.0) L 02/15/22 01:01 Albumin/Globulin Ratio 1.7 (0.9-2) 02/15/22 01:01 SARS-CoV-2, RNA, NAAT NEGATIVE (NEGATIVE) 02/15/22 02:20 Impressions Head CTA 02/15/22 00:57 CTA ANGIOGRAPHY OF THE HEAD CLINICAL HISTORY: Stroke Like Symptoms COMPARISON STUDY: Head CT performed earlier today. CTA of the head August 06, 2018. TECHNIQUE: Helical axial images of the head were obtained following uneventful intravenous administration of 116 cc of Optiray. Sagittal and coronal reconstructions were viewed as well as maximal intensity projections on an independent 3-D workstation. Automated exposure control was utilized for the study. A dose lowering technique was utilized adhering to the principles of ALARA. FINDINGS: Please note that the CTA of the neck will be reported separately. Ventricular system is unremarkable. Basal cisterns are patent. There are no extra axial collections. No acute intracranial hemorrhage is identified. There is moderate plaque within bilateral cavernous carotids without significant stenosis. The bilateral M1, M2, A1 and A2 segment are patent. There is no central vessel occlusion. No intracranial aneurysm is identified. Posterior circulation is intact. There is extensive plaque within the right carotid bi furcation without significant stenosis. This is better depicted on the neck CTA. Mild sphenoid sinus polypoid mucosal thickening is present. IMPRESSION: No central vessel occlusion. No intracranial aneurysm. ACT 112: Negative or not required by law. Electronically signed by: Ricardo Chambers M.D. 02/15/2022 8:09 AM Neck CTA 02/15/22 00:57 NECK CTA HISTORY: Stroke Like Symptoms TECHNIQUE: Multiaxial CT images of the neck were performed following the intravenous administration of contrast to evaluate the major cervical vessels. Maximum intensity projection images were also obtained. All measurements were calculated based on NASCET criteria. A dose lowering technique was utilized adhering to the principles of ALARA. COMPARISON STUDY: Neck CTA 08/06/2018. FINDINGS: The aortic arch and proximal great vessels are widely patent. Moderate focal stenosis at the takeoff of the bilateral vertebral arteries due to the calcified plaque. There is also up to 50% stenosis at the proximal bilateral internal carotid arteries due to the moderate calcified plaque. The bilateral common carotid arteries and mid to distal bilateral internal carotid arteries are widely patent. No evidence for arterial dissection or occlusion. IMPRESSION: Mild to moderate stenosis within the bilateral proximal internal carotid arteries and proximal vertebral arteries as described above due to the calcified plaque. No evidence for arterial occlusion. ACT 112: Negative or not required by law. Electronically signed by: Agus Lindo M.D. 02/15/2022 8:45 AM Abdomen/Pelvis CT 02/15/22 04:41 CT OF THE ABDOMEN AND PELVIS WITHOUT CONTRAST CLINICAL HISTORY: ANY BLEEDING. ANEMIA, ON COUMADIN COMPARISON STUDY: Abdominal series August 31, 2006. TECHNIQUE: Axial images of the abdomen and pelvis were obtained without IV contrast. Images were reviewed in the axial, sagittal, and coronal planes. Automated exposure control was utilized for the study. A dose lowering technique was utilized adhering to the principles of ALARA. FINDINGS: Please note that the chest CT will be reported separately. No pneumatosis, free air or portal venous gas is present. Cardiomegaly is noted. There is a prosthetic aortic valve. There is interlobular septal thickening within the lower lungs. There is a probable 1.3 cm medial segment left hepatic lobe cyst. No biliary or pancreatic ductal dilatation is present. There is borderline splenomegaly. Contrast excretion within the collecting systems, ureters and bladder is noted from recent contrast-enhanced CT. A Brandon balloon within the bladder is present. Bladder wall thickening is accentuated by underdistention. Prostate is enlarged, measuring 6.6 cm in transverse dimension. Abdominal aorta is ectatic, measuring 2.6 cm in caliber. There is no retroperitoneal hematoma. There is no hemoperitoneum. No abdominal or pelvic lymphadenopathy is noted. Note is made of a 8.2 cm sclerotic focus within the right iliac bone. There is a 1.7 cm sclerotic lesion within the medial left iliac bone. There is no evidence for a bowel obstruction. The appendix is normal. No acute fracture within the lumbar spine, pelvis or hips is identified. IMPRESSION: 1. No retroperitoneal hematoma. No hemoperitoneum. 2. No acute process within the abdomen or pelvis on unenhanced exam. 3. Sclerotic lesions within the bilateral iliac bones. This finding is nonspecific however skeletal metastases are within the differential. Findings could be correlated with PSA level. This finding will be called/faxed to ordering provider at time of dictation. 4. Enlarged prostate. No lymphadenopathy. 5. No bowel obstruction. No bowel wall thickening on unenhanced exam. ACT 112: Negative or not required by law. Electronically signed by: Ricardo Chambers M.D. 02/15/2022 7:[address] 02/15/22 04:41 CT chest diagnostic wo con CT DOSE: 1439.71 mGy.cm HISTORY: Anemia. Assess for bleeding abnormality. TECHNIQUE: Multiaxial CT images of the chest were performed without contrast. A dose lowering technique was utilized adhering to the principles of ALARA. COMPARISON: Chest CTA 07/27/2017. FINDINGS: Please refer to same day abdomen and pelvis CT for further evaluation of the abdominal structures. There are suboptimal evaluation of the chest due to the respiratory motion artifact. The heart remains mildly enlarged. Is left- sided pacemaker. 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 Mild dilatation of the pamunkey ascending thoracic aorta just beyond the site of repair measuring 4.4 cm in diameter. This remains unchanged. Moderate calcified plaque within the thoracic aorta. There is contrast within the visualized renal collecting systems from the prior CT examination. No pleural or pericardial effusion. No mediastinal hematoma or lymphadenopathy. Normal caliber esophagus. No pleural or pericardial effusions. There are poststernotomy changes. Patchy sclerosis within the right lateral fifth rib which is new from the prior CT examination. Therefore, an osteoblastic metastatic lesion would be the diagnosis of exclusion. No pneumothorax. The central airways are patent. There is a 3 mm subpleural nodule within the lingula on image 160. Mild interstitial thickening/dependent changes noted at the lung bases. Mild interlobular septal thickening suggestive of mild congestive change. A 7 mm groundglass nodule within the right upper lobe on image 55. Mild nodular thickening along the right minor fissure, unchanged. This is likely benign. IMPRESSION: 1. No mediastinal hematoma identified. 2. Focal area of sclerosis within the right lateral fifth rib which is new from the prior CT examination. An osteoblastic metastatic lesion would be the diagnosis of exclusion. 3. Mild interlobular septal thickening suggestive of mild congestive change. 4. Stable cardiomegaly. 5. A 7 mm groundglass nodule within the right upper lobe. Please refer to the chart below for recommended follow-up. 6. Postoperative changes as described above. There is mild aneurysmal dilatation of the pamunkey ascending thoracic aorta measuring up to 4.4 cm in diameter. This remains unchanged. Please refer to below summary of Fleischner criteria recommendations for follow- up of incidental CT nodules (Doris Gibson, Guidelines for management of small pulmonary nodules detected on CT scans: A statement from the Fleischner Society, Radiology 237: [phone].) SOLID NODULES Solitary nodule size: <6 mm * Low risk patients: no follow-up needed * high risk patients: optional CT at 12 months Solitary nodule size: 6-8 mm * Low risk patients: follow-up at 6-12 months, then consider further follow-up at 18-24 months * high risk patients: initial follow-up CT at 6-12 months and then at 18-24 months if no change Solitary nodule size: >8 mm * either low or high risk patients - consider follow-up CT at 3 months, and/or CT-PET, and/or biopsy Multiple nodules size: <6 mm * Low risk patients: no routine follow-up * high risk patients: optional CT at 12 months Multiple nodules size: 6-8 mm * Low risk patients: follow-up at 3-6 months, then consider further follow-up at 18-24 months * high risk patients: follow-up at 3-6 months, then at 18-24 months if no change Multiple nodules size: >8 mm * Low risk patients: follow-up at 3-6 months, then consider further follow-up at 18-24 months * high risk patients: follow-up at 3-6 months, then at 18-24 months if no change Note: newly detected indeterminate nodule in persons 35 years of age or older. * Low risk patients: minimal or absent history of smoking and/or other known risk factors * high risk patients: history of smoking or of other known risk factors (e.g. first degree relative with lung cancer, or exposure to asbestos, radon, uranium) * if a nodule up to 8 mm is partly solid or is ground glass further follow-up is required after 24 months to exclude possible slow growing adenocarcinoma (JEAN) SUBSOLID NODULES Solitary pure ground-glass nodule * nodule size <6 mm - no CT follow-up required * nodule size >=6 mm - follow-up CT at 6-12 months, then every 2 years until 5 years Solitary part-solid nodule * nodule size <6 mm - no CT follow-up required * nodule size >=6 mm - follow-up CT at 3-6 months. If unchanged, and solid component remains <6 mm, then annual follow-up for 5 years Multiple subsolid nodules * nodule size <6 mm - follow-up CT at 3-6 months, consider further follow-up at 2 and 4 years if stable * nodule size >=6 mm - follow-up CT at 3-6 months, subsequent management based on the most suspicious nodule(s) ACT 112: Negative or not required by law. Electronically signed by: Agus Lindo M.D. 02/15/2022 9:48 AM Brain MRI 02/15/22 06:01 MR brain wo/w con CLINICAL HISTORY: CVA? Acute change in mental status, found down on floor. TECHNIQUE: Multiplanar and multisequence MR images of the brain were obtained prior to and following administration of gadolinium contrast. Comparison: Comparison is made to CTA head and neck 02/15/2022 FINDINGS: Exam is limited by patient motion. There is thickening and T2 signal in the falx. There are a few foci of restricted diffusion at the vertex. The white matter is unremarkable. Ex vacuo ventriculomegaly and sulcal enlargement is noted compatible with diffuse encephalomalacia. No mass or abnormal enhancement is seen. There is no mass effect or midline shift. No abnormal GRE signal is seen at the site of T2 hyperintensity. No extra axial fluid collections are seen. The corpus callosum, pituitary gland, and cerebellar tonsils appear grossly unremarkable. Flow voids of the major intracranial arterial vessels are identified. The imaged portions of the paranasal sinuses, mastoid air cells, and orbits are un remarkable. IMPRESSION: Findings are compatible with a small bilateral subdural hemorrhage at the vertex with extension into the falx. This appears to be hyperacute to acute. Recommend continued CT follow-up. ACT 112: Negative or not required by law. Electronically signed by: Galindo Winchester M.D. 02/15/2022 1:[address] 02/16/22 04:44 CT SCAN OF THE BRAIN WITHOUT IV CONTRAST CLINICAL HISTORY: Follow-up subdural hemorrhage. COMPARISON STUDY: CT and MRI of the brain dated 02/15/2010. TECHNIQUE: Unenhanced axial CT scan of the brain is performed from the vertex to the skull base. A dose lowering technique was utilized adhering to the principles of ALARA. CT DOSE: 1381.76 mGy.cm FINDINGS: Brain parenchyma: There is trace residual subdural seen along the left convexity on axial image #12. This measures up to 2 mm in diameter. There is no associated mass effect. Subdural hemorrhage previously seen along the right convexity in the midline falx is no longer visualized. There is age-related involutional change noting mild subcortical and periventricular microangiopathic disease. There is no parenchymal hematoma, mass effect, or evidence of acute territorial ischemia by CT criteria. Evans-white matter differentiation is preserved. Ventricles, sulci, cisterns: Prominent secondary to involutional change. Intracranial vasculature: There is atherosclerotic calcification of the cavernous carotid and vertebral arteries. Calvarium: Unremarkable. Sinuses and mastoids: A 1.3 cm retention cyst is noted in the left maxillary antrum. Trace mucosal thickening is seen in the right maxillary antrum. The remaining paranasal sinuses are clear. The mastoid air cells are well pneumatized. Orbits: The bony orbits are grossly intact. There are bilateral ocular lens implants. IMPRESSION: 1. There is trace residual subdural hemorrhage seen along the left convexity. 2. Subdural blood seen along the right convexity and along the midline falx seen on yesterday's MRI is no longer visualized. 3. There is no mass effect or evidence of acute territorial ischemia by CT criteria. ACT 112: Negative or not required by law. Electronically signed by: Ken Trujillo M.D. 02/16/2022 6:34 AM (1) Altered mental state Altered mental status type: unspecified Qualified Code(s): R41.82 - Altered mental status, unspecified
[2022-02-16 13:40] LABS: INR 1.2 (0.9-1.1); Prothrombin Time 12.4 Seconds (9.0-12.0)
[2022-02-16 13:43] LABS: Basophils # (auto) 0.02 K/uL (0-0.2); Basophils % (auto) 0.3 %; Eosinophils # (auto) 0.05 K/uL (0-0.50); Eosinophils % (auto) 0.7 %; Hematocrit (blood only) 42.3 % (40.1-51.0); Immature Granulocytes # (auto) 0.03 K/uL (0.00-0.02); Immature Granulocytes % (auto) 0.4 %; Lymphocytes # (auto) 1.17 K/uL (1.2-3.4); Lymphocytes % (auto) 15.6 %; Mean Corpuscular Hgb Conc 33.1 g/dL (32.0-36.0); Mean Corpuscular Volume 90.6 fL (80.0-100.0); Mean Platelet Volume 10.5 fL (9.4-12.4); Monocytes # (auto) 0.62 K/uL (0.24-0.82); Monocytes % (auto) 8.3 %; Neutrophils # (auto) 5.61 K/uL (1.4-6.5); Neutrophils % (auto) 74.7 %; Platelet Count 150 K/uL (130-400); RDW Coefficient of Variation 13.1 % (11.5-14.5); Red Blood Count 4.67 M/uL (4.63-6.08)
[2022-02-16 13:44] LABS: BUN Creatinine Ratio 15.4 (10-20); Calcium 9.3 mg/dl (8.5-10.1); Chol HDL Ratio 3.4 (0-5); Est GFR (African American) 92.8 ml/min
[2022-02-16 13:59] LABS: Estimated Average Glucose 123 mg/dl; Hemoglobin A1C 5.9 % (4.5-5.6)
--- NOTE | 2022-02-16 14:21 | Cardiology Progress Note ---
Date of Service February 16, 2022 Assessment & Plan (1) Altered mental state: (2) S/P AVR (aortic valve replacement): (3) Atrial fibrillation: (4) Pacemaker: (5) S/P aortic aneurysm repair: Plan Patient is an 89-year-old male with complex cardiovascular history as outlined. He has had history of congenital bicuspid aortic valve with aortic valve replacement in 1995 and redo surgery 2018 with bioprosthetic aortic valve and repair of a sending aortic aneurysm. Chronic atrial fibrillation is present with patient chronically anticoagulated and with INR of 1.8 on presentation. Past complete heart block with indwelling pacemaker. No acute cardiac decline by initial assessment Given the fact that the patient had a left atrial appendage clip performed at the time of his open heart surgery there is no cardiac need for further anticoagulation at this time. No further cardiac test intervention necessary at this time. Given his history of coronary artery disease would resume aspirin once bleeding risk is acceptable by neurology. Okay to DC telemetry from a cardiac standpoint. Admission and Anticipated Discharge Date Admission Date: February 15, 2022 Subjective Patient seen and examined. Chart reviewed. Telemetry reviewed. Seen at the bedside with many family members present. States he is feeling much better now and his memory is starting to return. Denies any chest pain, shortness of breath or palpitations. Review of Systems Review of Systems: All systems reviewed & are unremarkable except as noted in HPI & below Physical Exam Physical Exam: General: Awake, alert and oriented x 3. No acute distress. HEENT: Normocephalic, atraumatic. Pupils equal, round and reactive to light and accommodation. Extraocular muscles are intact. Anicteric sclera. Moist mucous membranes. Neck: No JVD. No bruit. Cardiovascular: Regular. Positive S-4. Normal S-1 and S-2. No S-3. 3/6 mid to late systolic ejection murmur, greatest at the right sternal border, second intercostal space with radiation to the bilateral carotids. No rubs. Pulmonary: Clear to auscultation bilaterally. No rales, rhonchi, or wheezing. Abdomen: Bowel sounds x 4, soft. No rebound, guarding or tenderness. No organomegaly. Extremities: No clubbing, cyanosis or edema. +2 pedal pulses bilaterally. Skin: Warm and dry. Results & Data ([facility]) Vital Signs (Past 12 Hours) Vital Signs Temp Pulse Resp BP BP Pulse Ox O2 Del Method 02/16/22 11:14 36.5 C 60 16 113/69 98 Room Air 02/16/22 08:02 36.3 C L 89 16 175/85 H 95 Room Air 02/16/22 03:45 36.6 C 59 L 18 160/70 H 98 Room Air (1) Altered mental state Altered mental status type: unspecified Qualified Code(s): R41.82 - Altered mental status, unspecified
[2022-02-16] MEDS: SODIUM CHLORIDE 0.9% 1000ML 1,000 ML IV SCH (14:36)
[2022-02-16] MEDS: SIMVASTATIN 20 MG TAB PO SCH (20:45)
[2022-02-17] MEDS: OLANZapine 10 MG/2.1 ML SDV IM SCH ×2 (03:00→06:23)
[2022-02-17] MEDS: LEVOTHYROXINE SODIUM 50 MCG TABLET PO SCH (06:05)
[2022-02-17 06:38] LABS: Basophils # (auto) 0.02 K/uL (0-0.2); Basophils % (auto) 0.3 %; Eosinophils # (auto) 0.14 K/uL (0-0.50); Eosinophils % (auto) 1.8 %; Hematocrit (blood only) 39.3 % (40.1-51.0); Hemoglobin 13.3 g/dl (14.0-18.0); Immature Granulocytes # (auto) 0.04 K/uL (0.00-0.02); Immature Granulocytes % (auto) 0.5 %; Lymphocytes # (auto) 1.88 K/uL (1.2-3.4); Lymphocytes % (auto) 23.6 %; Mean Corpuscular Hemoglobin 30.3 pg (25.0-34.0); Mean Corpuscular Hgb Conc 33.8 g/dL (32.0-36.0); Mean Corpuscular Volume 89.5 fL (80.0-100.0); Mean Platelet Volume 10.5 fL (9.4-12.4); Monocytes # (auto) 0.79 K/uL (0.24-0.82); Monocytes % (auto) 9.9 %; Neutrophils # (auto) 5.09 K/uL (1.4-6.5); Neutrophils % (auto) 63.9 %; Platelet Count 150 K/uL (130-400); RDW Coefficient of Variation 13.1 % (11.5-14.5); RDW Standard Deviation 43.3 fL (36.4-46.3); Red Blood Count 4.39 M/uL (4.63-6.08); White Blood Count 7.96 K/ul (4.8-10.8)
[2022-02-17 07:20] LABS: BUN Creatinine Ratio 21.5 (10-20); Calcium 8.7 mg/dl (8.5-10.1); Creatinine Clr Calc Pharmacy 73.7 ml/min; Est GFR (African American) 92.3 ml/min; Est GFR (Non-African American) 79.6 ml/min; Potassium 3.9 mmol/L (3.5-5.1)
[2022-02-17 07:23] LABS: INR 1.1 (0.9-1.1); Prothrombin Time 11.8 Seconds (9.0-12.0)
[2022-02-17] MEDS: METOPROLOL TARTRATE 25 MG TAB PO SCH ×2 (08:28→21:53)
[2022-02-17] MEDS: CHOLECALCIFEROL 1,000 UNITS 25 MCG TAB PO SCH (08:29)
--- NOTE | 2022-02-17 09:34 | Neurology Progress Note ---
Date of Service February 17, 2022 Assessment & Plan (1) Subdural hematoma, nontraumatic: (2) Cerebrovascular disease: Plan 89-year-old male with spontaneous, trace bilateral subdural hematomas presenting with altered mental status. Patient appears clinically improved this morning. He is much more alert and appropriate. He has a nonfocal neurological examination. He does have a complicated cardiac history, please see previous notes/cardiology consultation for further details. Patient does not require long-term anticoagulation at this time, his warfarin has been discontinued. In speaking with patient's family this morning, it sounds like he was not taking daily low-dose aspirin. I would recommend checking a repeat gadolinium-enhanced brain MRI in 2 weeks to ensure resolution of his trace nontraumatic subdural hematoma. At that point, it may not be unreasonable to consider starting daily low-dose aspirin as he does have evidence of a few chronic lacunar infarcts, cerebrovascular disease and moderate atherosclerotic disease of the internal carotid arteries. Would consider switching from simvastatin to an alternative hydrophilic statin such as rosuvastatin or pravastatin Patient may follow-up in neurology clinic in 2 to 3 weeks. Admission and Anticipated Discharge Date Admission Date: February 15, 2022 Subjective Follow-up for nontraumatic subdural hematoma Patient is alert and appropriate this morning. Denies headache, vision disturbance, dizziness, fever, neck pain, weakness or sensory loss. No further stroke or seizure-like episodes. I reviewed yesterday's cardiology progress note describing patient's complex cardiac history. No need for ongoing anticoagulation as he has undergone left atrial appendage clipping in the past. May resume daily low-dose aspirin per neurology. I did again review patient's recent imaging including CT of the head and brain MRI. He does have evidence of a chronic lacunar infarct within the right cerebellum and right thalamus as well as chronic microvascular ischemic disease. CT angiography of the neck has revealed a moderate degree of atherosclerotic calcified plaque within the p roximal bilateral internal carotid arteries, approximately 50%. Follow-up CT of the head completed yesterday suggests stability/improvement of the trace subdural hemorrhage. Review of Systems Constitutional: no fever and no chills Eyes: no blind spots Musculoskeletal: no neck pain Neurologic: no localized weakness, no loss of sensation and no tremor(s) Results & Data ([facility]) Vital Signs (Past 12 Hours) Vital Signs Temp Pulse Pulse Resp BP BP Pulse Ox 02/17/22 08:00 02/17/22 07:57 36.7 C 59 L 16 130/72 96 02/17/22 03:12 36.4 C L 60 18 140/77 96 02/17/22 00:03 60 02/16/22 23:47 36.4 C L 60 18 135/68 98 O2 Del Method 02/17/22 08:00 Room Air 02/17/22 07:57 Room Air 02/17/22 03:12 Room Air 02/17/22 00:03 02/16/22 23:47 Room Air Laboratory Results WBC 7.96, hemoglobin 13.3, hematocrit 39.3, MCV 89.5, platelet count 150, sodium 132, potassium 3.9, BUN 17, creatinine 0.79, glucose 107, calcium 8.7. Lipid panel completed yesterday reviewed. Triglycerides 88, cholesterol 189, LDL 115, VLDL 18, HDL 56. Exam (Neuro) Neurologic: Oriented to:: Person, Place and Time Attention: Span Intact and Concentration Intact Speech Fluency: negative Dysarthria or Dysfluency Fund of Knowledge: Current Events, Past History and Vocabulary Cranial Nerves: Normal II, III, IV, and VII Motor Strength: Normal Lower Extremities and Normal Upper Extremities Muscle Bulk/Involuntary Movements: No Involuntary Movements Coordination: negative Finger-Nose Abnormal or Heel- Martinez Abnormal Coding Level of Care Code 89678 Subseq Hosp Care Lvl 2 Diagnoses Subdural hematoma, nontraumatic I62.00 Cerebrovascular disease I67.9
[2022-02-17] MEDS ORDERED: LABETALOL HCL IV 5 MG/ML 20ML IV PRN (11:08)
--- NOTE | 2022-02-17 11:19 | Hospitalist Progress Note ---
Date of Service February 17, 2022 Assessment & Plan (1) Subdural hematoma, nontraumatic: (2) Atrial fibrillation: (3) S/P AVR (aortic valve replacement): (4) Altered mental state: Plan Patient is a 89-year-old male with past medical history of complete heart block status post pacemaker, atrial fibrillation on Coumadin, hyperlipidemia, BPH, status post bioprosthetic valve placement, CAD status post CABG, hypertension, hypothyroidism presents to the hospital with acute onset of altered mental status. CT head, CT head and neck angio were unremarkable for acute abnormality. MRI brain was done; findings were compatible with small bilateral subdural hematoma at the vertex with extension into the falx. Patient was given 10 mg of IV vitamin K for reversal of Coumadin as per the recommendation by Dr. Mclaughlin. Repeat without without contrast was done in the morning of 02/16 which showed trace residual subdural hematoma along left convexity. On 02/17, patient's mental status change significantly. He was alert oriented x3 and was back to his baseline. Altered mental status Subdural hematoma Atrial fibrillation on Coumadin status post vitamin K on 02/15 Afebrile, normotensive and saturating well in room air. Hemoglobin 13.3; stable.BMP remarkable for mild hyponatremia with sodium of 132. --PT/INR normal. --MRI brain as above. Repeat CT head shows trace residual subdural hemorrhage up to 2 mm. No mass-effect seen --EEG shows mildly slow generalized background abnormality; no focal abnormalities Plan; Hold off on any additional sedatives and Haldol/Zyprexa. -Neurology okay with resuming aspirin. Patient does not require warfarin as per cardiology as he had undergone left atrial appendage clip. -Brandon removed; bladder scan every 8 hours. -PT OT evaluation. Family thinks that patient will benefit from rehab prior to going home. CT chest on admission showed 7 mm groundglass nodule in right upper lobe. Discussed the finding with his son and patient at bedside. Recommended outpatient follow-up and CT scan. He understood and verbalized instructions. CT abdomen pelvis at admission showed sclerotic lesion within bilateral iliac bone. Findings were described to be nonspecific but skeletal metastatic's were within the differential. Discussed the findings with the son and patient at bedside. He requested obtaining PSA level. He will have outpatient follow-up with urology. Full code [id number] DispositionPT OT ordered; family would prefer the patient to go to rehab after discharge before returning home. Admission and Anticipated Discharge Date Admission Date: February 15, 2022 Subjective Patient seen and examined at bedside. He is awake and interactive. He is oriented to time place and person. He has no recollection of the events that happened after his hospitalization. Telemetry shows paced rhythm. Review of Systems Review of Systems: All systems reviewed & are unremarkable except as noted in Subjective Physical Exam Physical Exam: Constitutional: Awake, alert, oriented x4. Respiratory: normal respiratory effort, lungs clear to auscultation, no wheeze, rales, rhonchi. Normal insp/exp effort, no accessory muscle use Cardiovascular: RRR, no murmur, no edema Vessels: no JVD or carotid bruit Chest: Pacemaker in place. Abdomen: normal bowel sounds, soft, nontender, no hepatosplenomegaly Musculoskeletal: no cyanosis or clubbing, extremities motor strength 5/5 Skin: no rashes, warm and dry normal turgor Neurologic: PERRL, EOMI, accommodation nl, no face palsy, no dysarthria CN's II- XI intact bilaterally and moves all extremities Psychiatric: A+Ox3, euthymic affect Lymphatic: no cervical or axillary lymphadenopathy : deferred Results & Data Results & Data ([facility]) Vital Signs (Past 12 Hours) Vital Signs Temp Pulse Pulse Resp BP BP Pulse Ox 02/17/22 11:05 36.7 C 60 16 113/75 98 02/17/22 08:00 02/17/22 07:57 36.7 C 59 L 16 130/72 96 02/17/22 03:12 36.4 C L 60 18 140/77 96 02/17/22 00:03 60 02/16/22 23:47 36.4 C L 60 18 135/68 98 O2 Del Method 02/17/22 11:05 Room Air 02/17/22 08:00 Room Air 02/17/22 07:57 Room Air 02/17/22 03:12 Room Air 02/17/22 00:03 02/16/22 23:47 Room Air Laboratory Results Laboratory Results WBC 7.96 K/ul (4.8-10.8) 02/17/22 06:06 RBC 4.39 M/uL (4.63-6.08) L 02/17/22 06:06 Hgb 13.3 g/dl (14.0-18.0) L 02/17/22 06:06 Hct 39.3 % (40.1-51.0) L 02/17/22 06:06 MCV 89.5 fL (80.0-100.0) 02/17/22 06:06 MCH 30.3 pg (25.0-34.0) 02/17/22 06:06 MCHC 33.8 g/dL (32.0-36.0) 02/17/22 06:06 RDW Std Deviation 43.3 fL (36.4-46.3) 02/17/22 06:06 RDW Coeff of Georgette 13.1 % (11.5-14.5) 02/17/22 06:06 Plt Count 150 K/uL (130-400) 02/17/22 06:06 MPV 10.5 fL (9.4-12.4) 02/17/22 06:06 Immature Gran % (Auto) 0.5 % 02/17/22 06:06 Neut % (Auto) 63.9 % 02/17/22 06:06 Lymph % (Auto) 23.6 % 02/17/22 06:06 Newberry % (Auto) 9.9 % 02/17/22 06:06 Eos % (Auto) 1.8 % 02/17/22 06:06 Baso % (Auto) 0.3 % 02/17/22 06:06 Neut # (Auto) 5.09 K/uL (1.4-6.5) 02/17/22 06:06 Lymph # (Auto) 1.88 K/uL (1.2-3.4) 02/17/22 06:06 Newberry # (Auto) 0.79 K/uL (0.24-0.82) 02/17/22 06:06 Eos # (Auto) 0.14 K/uL (0-0.50) 02/17/22 06:06 Baso # (Auto) 0.02 K/uL (0-0.2) 02/17/22 06:06 Immature Gran # (Auto) 0.04 K/uL (0.00-0.02) H 02/17/22 06:06 RBC Morphology Unremarkable 02/15/22 01:01 PT 11.8 Seconds (9.0-12.0) 02/17/22 06:06 INR 1.1 (0.9-1.1) 02/17/22 06:06 APTT 29.3 Seconds (21.0-31.0) 02/15/22 01:01 PTT Ratio 1.1 02/15/22 01:01 Sodium 132 mmol/L (136-145) L 02/17/22 06:06 Potassium 3.9 mmol/L (3.5-5.1) 02/17/22 06:06 Chloride 101 mmol/L (98-107) 02/17/22 06:06 Carbon Dioxide 25 mmol/L (21-32) 02/17/22 06:06 Anion Gap 6 (3-11) 02/17/22 06:06 BUN 17 mg/dl (6-23) 02/17/22 06:06 Creatinine 0.79 mg/dl (0.6-1.4) 02/17/22 06:06 Est Cr Clr Drug Dosing 73.7 ml/min 02/17/22 06:06 Est GFR ( Amer) 92.3 ml/min 02/17/22 06:06 Est GFR (Non-Af Amer) 79.6 ml/min 02/17/22 06:06 BUN/Creatinine Ratio 21.5 (10-20) H 02/17/22 06:06 Glucose 107 mg/dl (70-99(Fasting)) H 02/17/22 06:06 POC Glucose 134 mg/dl (70-99) H 02/16/22 20:23 Estimat Average Glucose 123 mg/dl 02/16/22 13:05 Hemoglobin A1c 5.9 % (4.5-5.6) H 02/16/22 13:05 Calcium 8.7 mg/dl (8.5-10.1) 02/17/22 06:06 Magnesium 1.6 mg/dl (1.7-2.4) L 02/15/22 01:01 Total Bilirubin 0.9 mg/dl (0.2-1.0) 02/15/22 01:01 AST 19 U/L (13-39) 02/15/22 01:01 ALT 14 U/L (7-52) 02/15/22 01:01 Alkaline Phosphatase 63 U/L (34-104) 02/15/22 01:01 Troponin I High Sens 10.7 pg/ml (0-20) 02/15/22 01:01 Total Protein 6.2 gm/dl (6.0-8.3) 02/15/22 01:01 Albumin 3.9 gm/dl (3.4-5.0) 02/15/22 01:01 Globulin 2.3 gm/dl (2.5-4.0) L 02/15/22 01:01 Albumin/Globulin Ratio 1.7 (0.9-2) 02/15/22 01:01 Triglycerides 88 mg/dl (0-150) 02/16/22 13:05 Cholesterol 189 mg/dl (0-200) 02/16/22 13:05 LDL Cholesterol, Calc 115 mg/dl 02/16/22 13:05 VLDL Cholesterol, Calc 18 mg/dl (0-30) 02/16/22 13:05 HDL Cholesterol 56 mg/dl 02/16/22 13:05 Cholesterol/HDL Ratio 3.4 (0-5) 02/16/22 13:05 SARS-CoV-2, RNA, NAAT NEGATIVE (NEGATIVE) 02/15/22 02:20 Impressions Head CTA 02/15/22 00:57 CTA ANGIOGRAPHY OF THE HEAD CLINICAL HISTORY: Stroke Like Symptoms COMPARISON STUDY: Head CT performed earlier today. CTA of the head August 06, 2018. TECHNIQUE: Helical axial images of the head were obtained following uneventful intravenous administration of 116 cc of Optiray. Sagittal and coronal reconstructions were viewed as well as maximal intensity projections on an independent 3-D workstation. Automated exposure control was utilized for the study. A dose lowering technique was utilized adhering to the principles of ALARA. FINDINGS: Please note that the CTA of the neck will be reported separately. Ventricular system is unremarkable. Basal cisterns are patent. There are no extra axial collections. No acute intracranial hemorrhage is identified. There is moderate plaque within bilateral cavernous carotids without significant stenosis. The bilateral M1, M2, A1 and A2 segment are patent. There is no central vessel occlusion. No intracranial aneurysm is identified. Posterior circulation is intact. There is extensive plaque within the right carotid bifurcation without significant stenosis. This is better depicted on the neck CTA. Mild sphenoid sinus polypoid mucosal thickening is present. IMPRESSION: No central vessel occlusion. No intracranial aneurysm. ACT 112: Negative or not required by law. Electronically signed by: Ricardo Chambers M.D. 02/15/2022 8:09 AM Neck CTA 02/15/22 00:57 NECK CTA HISTORY: Stroke Like Symptoms TECHNIQUE: Multiaxial CT images of the neck were performed following the intravenous administration of contrast to evaluate the major cervical vessels. Maximum intensity projection images were also obtained. All measurements were calculated based on NASCET criteria. A dose lowering technique was utilized adhering to the principles of ALARA. COMPARISON STUDY: Neck CTA 08/06/2018. FINDINGS: The aortic arch and proximal great vessels are widely patent. Moderate focal stenosis at the takeoff of the bilateral vertebral arteries due to the calcified plaque. There is also up to 50% stenosis at the proximal bilateral internal carotid arteries due to the moderate calcified plaque. The bilateral common carotid arteries and mid to distal bilateral internal carotid arteries are widely patent. No evidence for arterial dissection or occlusion. IMPRESSION: Mild to moderate stenosis within the bilateral proximal internal carotid arteries and proximal vertebral arteries as described above due to the calcified plaque. No evidence for arterial occlusion. ACT 112: Negative or not required by law. Electronically signed by: Agus Lindo M.D. 02/15/2022 8:45 AM Abdomen/Pelvis CT 02/15/22 04:41 CT OF THE ABDOMEN AND PELVIS WITHOUT CONTRAST CLINICAL HISTORY: ANY BLEEDING. ANEMIA, ON COUMADIN COMPARISON STUDY: Abdominal series August 31, 2006. TECHNIQUE: Axial images of the abdomen and pelvis were obtained without IV contrast. Images were reviewed in the axial, sagittal, and coronal planes. Automated exposure control was utilized for the study. A dose lowering technique was utilized adhering to the principles of ALARA. FINDINGS: Please note that the chest CT will be reported separately. No pneumatosis, free air or portal venous gas is present. Cardiomegaly is noted. There is a prosthetic aortic valve. There is interlobular septal thickening within the lower lungs. There is a probable 1.3 cm medial segment left hepatic lobe cyst. No biliary or pancreatic ductal dilatation is present. There is borderline splenomegaly. Contrast excretion within the collecting systems, ureters and bladder is noted from recent contrast-enhanced CT. A Brandon balloon within the bladder is present. Bladder wall thickening is accentuated by underdistention. Prostate is enlarged, measuring 6.6 cm in transverse dimension. Abdominal aorta is ectatic, measuring 2.6 cm in caliber. There is no retroperitoneal hematoma. There is no hemoperitoneum. No abdominal or pelvic lymphadenopathy is noted. Note is made of a 8.2 cm sclerotic focus within the right iliac bone. There is a 1.7 cm sclerotic lesion within the medial left iliac bone. There is no evidence for a bowel obstruction. The appendix is normal. No acute fracture within the lumbar spine, pelvis or hips is identified. IMPRESSION: 1. No retroperitoneal hematoma. No hemoperitoneum. 2. No acute process within the abdomen or pelvis on unenhanced exam. 3. Sclerotic lesions within the bilateral iliac bones. This finding is nonspecific however skeletal metastases are within the differential. Findings could be correlated with PSA level. This finding will be called/faxed to ordering provider at time of dictation. 4. Enlarged prostate. No lymphadenopathy. 5. No bowel obstruction. No bowel wall thickening on unenhanced exam. ACT 112: Negative or not required by law. Electronically signed by: Ricardo Chambers M.D. 02/15/2022 7:[address] 02/15/22 04:41 CT chest diagnostic wo con CT DOSE: 1439.71 mGy.cm HISTORY: Anemia. Assess for bleeding abnormality. TECHNIQUE: Multiaxial CT images of the chest were performed without contrast. A dose lowering technique was utilized adhering to the principles of ALARA. COMPARISON: Chest CTA 07/27/2017. FINDINGS: Please refer to same day abdomen and pelvis CT for further evaluation of the abdominal structures. There are suboptimal evaluation of the chest due to the respiratory motion artifact. The heart remains mildly enlarged. Is left- sided pacemaker. 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 Mild dilatation of the moapa ascending thoracic aorta just beyond the site of repair measuring 4.4 cm in diameter. This remains unchanged. Moderate calcified plaque within the thoracic aorta. There is contrast within the visualized renal collecting systems from the prior CT examination. No pleural or pericardial effusion. No mediastinal hematoma or lymphadenopathy. Normal caliber esophagus. No pleural or pericardial effusions. There are poststernotomy changes. Patchy sclerosis within the right lateral fifth rib which is new from the prior CT examination. Therefore, an osteoblastic metastatic lesion would be the diagnosis of exclusion. No pneumothorax. The central airways are patent. There is a 3 mm subpleural nodule within the lingula on image 160. Mild interstitial thick ening/dependent changes noted at the lung bases. Mild interlobular septal thickening suggestive of mild congestive change. A 7 mm groundglass nodule within the right upper lobe on image 55. Mild nodular thickening along the right minor fissure, unchanged. This is likely benign. IMPRESSION: 1. No mediastinal hematoma identified. 2. Focal area of sclerosis within the right lateral fifth rib which is new from the prior CT examination. An osteoblastic metastatic lesion would be the diagnosis of exclusion. 3. Mild interlobular septal thickening suggestive of mild congestive change. 4. Stable cardiomegaly. 5. A 7 mm groundglass nodule within the right upper lobe. Please refer to the chart below for recommended follow-up. 6. Postoperative changes as described above. There is mild aneurysmal dilatation of the moapa ascending thoracic aorta measuring up to 4.4 cm in diameter. This remains unchanged. Please refer to below summary of Fleischner criteria recommendations for follow- up of incidental CT nodules (Doris Gibson, Guidelines for management of small pulmonary nodules detected on CT scans: A statement from the Fleischner Society, Radiology 237: [phone].) SOLID NODULES Solitary nodule size: <6 mm * Low risk patients: no follow-up needed * high risk patients: optional CT at 12 months Solitary nodule size: 6-8 mm * Low risk patients: follow-up at 6-12 months, then consider further follow-up at 18-24 months * high risk patients: initial follow-up CT at 6-12 months and then at 18-24 months if no change Solitary nodule size: >8 mm * either low or high risk patients - consider follow-up CT at 3 months, and/or CT-PET, and/or biopsy Multiple nodules size: <6 mm * Low risk patients: no routine follow-up * high risk patients: optional CT at 12 months Multiple nodules size: 6-8 mm * Low risk patients: follow-up at 3-6 months, then consider further follow-up at 18-24 months * high risk patients: follow-up at 3-6 months, then at 18-24 months if no change Multiple nodules size: >8 mm * Low risk patients: follow-up at 3-6 months, then consider further follow-up at 18-24 months * high risk patients: follow-up at 3-6 months, then at 18-24 months if no change Note: newly detected indeterminate nodule in persons 35 years of age or older. * Low risk patients: minimal or absent history of smoking and/or other known risk factors * high risk patients: history of smoking or of other known risk factors (e.g. first degree relative with lung cancer, or exposure to asbestos, radon, uranium) * if a nodule up to 8 mm is partly solid or is ground glass further follow-up is required after 24 months to exclude possible slow growing adenocarcinoma (JEAN) SUBSOLID NODULES Solitary pure ground-glass nodule * nodule size <6 mm - no CT follow-up required * nodule size >=6 mm - follow-up CT at 6-12 months, then every 2 years until 5 years Solitary part-solid nodule * nodule size <6 mm - no CT follow-up required * nodule size >=6 mm - follow-up CT at 3-6 months. If unchanged, and solid component remains <6 mm, then annual follow-up for 5 years Multiple subsolid nodules * nodule size <6 mm - follow-up CT at 3-6 months, consider further follow-up at 2 and 4 years if stable * nodule size >=6 mm - follow-up CT at 3-6 months, subsequent management based on the most suspicious nodule(s) ACT 112: Negative or not required by law. Electronically signed by: Agus Lindo M.D. 02/15/2022 9:48 AM Brain MRI 02/15/22 06:01 MR brain wo/w con CLINICAL HISTORY: CVA? Acute change in mental status, found down on floor. TECHNIQUE: Multiplanar and multisequence MR images of the brain were obtained prior to and following administration of gadolinium contrast. Comparison: Comparison is made to CTA head and neck 02/15/2022 FINDINGS: Exam is limited by patient motion. There is thickening and T2 signal in the falx. There are a few foci of restricted diffusion at the vertex. The white matter is unremarkable. Ex vacuo ventriculomegaly and sulcal enlargement is noted compatible with diffuse encephalomalacia. No mass or abnormal enhancement is seen. There is no mass effect or midline shift. No abnormal GRE signal is seen at the site of T2 hyperintensity. No extra axial fluid collections are seen. The corpus callosum, pituitary gland, and cerebellar tonsils appear grossly unremarkable. Flow voids of the major intracranial arterial vessels are identified. The imaged portions of the paranasal sinuses, mastoid air cells, and orbits are unremarkable. IMPRESSION: Findings are compatible with a small bilateral subdural hemorrhage at the vertex with extension into the falx. This appears to be hyperacute to acute. Recommend continued CT follow-up. ACT 112: Negative or not required by law. Electronically signed by: Galindo Winchester M.D. 02/15/2022 1:[address] 02/16/22 04:44 CT SCAN OF THE BRAIN WITHOUT IV CONTRAST CLINICAL HISTORY: Follow-up subdural hemorrhage. COMPARISON STUDY: CT and MRI of the brain dated 02/15/2010. TECHNIQUE: Unenhanced axial CT scan of the brain is performed from the vertex to the skull base. A dose lowering technique was utilized adhering to the principles of ALARA. CT DOSE: 1381.76 mGy.cm FINDINGS: Brain parenchyma: There is trace residual subdural seen along the left convexity on axial image #12. This measures up to 2 mm in diameter. There is no associated mass effect. Subdural hemorrhage previously seen along the right convexity in the midline falx is no longer visualized. There is age-related involutional change noting mild subcortical and periventricular microangiopathic disease. There is no parenchymal hematoma, mass effect, or evidence of acute territorial ischemia by CT criteria. Evans-white matter differentiation is preserved. Ventricles, sulci, cisterns: Prominent secondary to involutional change. Intracranial vasculature: There is atherosclerotic calcification of the cavernous carotid and vertebral arteries. Calvarium: Unremarkable. Sinuses and mastoids: A 1.3 cm retention cyst is noted in the left maxillary antrum. Trace mucosal thickening is seen in the right maxillary antrum. The remaining paranasal sinuses are clear. The mastoid air cells are well pneumatized. Orbits: The bony orbits are grossly intact. There are bilateral ocular lens implants. IMPRESSION: 1. There is trace residual subdural hemorrhage seen along the left convexity. 2. Subdural blood seen along the right convexity and along the midline falx seen on yesterday's MRI is no longer visualized. 3. There is no mass effect or evidence of acute territorial ischemia by CT criteria. ACT 112: Negative or not required by law. Electronically signed by: Ken Trujillo M.D. 02/16/2022 6:34 AM (1) Altered mental state Altered mental status type: unspecified Qualified Code(s): R41.82 - Altered mental status, unspecified
[2022-02-17] MEDS: SIMVASTATIN 20 MG TAB PO SCH (21:53)
[2022-02-18] MEDS: LEVOTHYROXINE SODIUM 50 MCG TABLET PO SCH (06:34)
[2022-02-18 06:45] LABS: Basophils # (auto) 0.03 K/uL (0-0.2); Basophils % (auto) 0.4 %; Eosinophils # (auto) 0.13 K/uL (0-0.50); Eosinophils % (auto) 1.6 %; Hematocrit (blood only) 40.9 % (40.1-51.0); Hemoglobin 13.5 g/dl (14.0-18.0); Immature Granulocytes # (auto) 0.03 K/uL (0.00-0.02); Immature Granulocytes % (auto) 0.4 %; Lymphocytes # (auto) 1.89 K/uL (1.2-3.4); Lymphocytes % (auto) 23.4 %; Mean Corpuscular Hemoglobin 29.6 pg (25.0-34.0); Mean Corpuscular Volume 89.7 fL (80.0-100.0); Mean Platelet Volume 10.7 fL (9.4-12.4); Monocytes # (auto) 1.01 K/uL (0.24-0.82); Monocytes % (auto) 12.5 %; Neutrophils % (auto) 61.7 %; Platelet Count 145 K/uL (130-400); RDW Standard Deviation 42.6 fL (36.4-46.3); Red Blood Count 4.56 M/uL (4.63-6.08); White Blood Count 8.09 K/ul (4.8-10.8)
[2022-02-18 07:19] LABS: BUN Creatinine Ratio 27.2 (10-20); Calcium 8.9 mg/dl (8.5-10.1); Creatinine Clr Calc Pharmacy 63.3 ml/min; Est GFR (African American) 85.2 ml/min; Est GFR (Non-African American) 73.5 ml/min; Potassium 3.8 mmol/L (3.5-5.1)
[2022-02-18 07:25] LABS: INR 1.1 (0.9-1.1); Prothrombin Time 11.4 Seconds (9.0-12.0)
[2022-02-18] MEDS: ASPIRIN 81 MG CHEW PO SCH (08:49)
[2022-02-18] MEDS: METOPROLOL TARTRATE 25 MG TAB PO SCH ×2 (08:49→21:07)
[2022-02-18] MEDS: CHOLECALCIFEROL 1,000 UNITS 25 MCG TAB PO SCH (08:49)
--- NOTE | 2022-02-18 11:41 | Urology Consultation ---
Date of Consultation February 18, 2022 Assessment & Plan (1) Elevated PSA: Plan 89yo M admitted with subdural hematoma. CT abdomen pelvis at admission showed sclerotic lesion within bilateral iliac bone. Findings were described to be nonspecific but skeletal metastases were within the differential. - Urology consulted for sclerotic lesions with elevated PSA. - Plan of care reviewed with Dr. Pederson. - CTAP showing sclerotic lesions within the bilateral iliac bones. - PSA 114. - We discussed the CT findings as well as elevated PSA. We discussed the possibility of an underlying prostate cancer and metastatic disease. We discussed recommendation for prostate biopsy and/or bone biopsy of the lesion for confirmation. Also discussed getting established with medical oncology for management of possible metastatic disease. - Patient/family understand they may be dealing with an underlying prostate cancer and metastatic disease. However, patient is interested in going home at this time and prefers to work-up as an outpatient. - Patient also reportedly followed with [facility] urology in the past for elevated PSA and would like to obtain prior records and may consider pursing further work-up with his prior urologist. - We will contact the patient to arrange a follow-up visit if he chooses to pursue work-up with our office. If so, we will arrange an outpatient biopsy. -Thank you for allowing us to participate in the acute care of Mr. Baugh. Please reconsult us with additional questions, concerns or changes in patient status. History of Present Illness Reason for Consultation: Sclerotic lesions with elevated PSA Attending Physician: Austin Nath MD History of Present Illness 89-year-old male with past medical history of complete heart block status post pacemaker, atrial fibrillation on Coumadin, hyperlipidemia, BPH, status post bioprosthetic valve placement, CAD status post CABG, hypertension, hypothyroidism admitted with acute onset of altered mental status and found to have small bilateral subdural hematoma. CT a/p on arrival notable for sclerotic lesions within the bilateral iliac bones, this finding is nonspecific however skeletal metastasis are within the differential. A PSA level was obtained and was 114. Urology consulted for sclerotic lesions with elevated PSA. Chart review- Afebrile and hemodynamically stable. White count and creatinine normal. PSA 114.698. Urine culture pending. CT abdomen pelvis - 1. No retroperitoneal hematoma. No hemoperitoneum. 2. No acute process within the abdomen or pelvis on unenhanced exam. 3. Sclerotic lesions within the bilateral iliac bones. This finding is nonspecific however skeletal metastases are within the differential. Findings could be correlated with PSA level. This finding will be called/faxed to ordering provider at time of dictation. 4. Enlarged prostate. No lymphadenopathy. 5. No bowel obstruction. No bowel wall thickening on unenhanced exam. Patient examined at bedside. Awake, sitting in bedside chair on arrival. and son at bedside. Appears comfortable and in no acute distress. He did have a Brandon catheter during this hospitalization, but has since been removed. States he is voiding without issue. No hematuria or dysuria. No reported pain at time of visit. Reports he is likely going home tomorrow. Patient reports previously following with a urologist, believes it was [facility] urology. Last seen> 5 years ago. Reports a history of elevated PSA and prior negative biopsy. Denies additional urological issues or concerns. Patient has resumed his aspirin. He no longer requires warfarin as per cardiology as he had undergone left atrial appendage clip. Allergies Allergy/AdvReac Type Severity Reaction Status Date / Time No Known Allergies Allergy Verified 08/06/18 17:08 Home Medications Medication Instructions Recorded Confirmed Type acetaminophen 500 mg tablet 1,000 mg PO Q6H PRN pain or fever 08/06/18 08/06/18 History amoxicillin 500 mg capsule 2,000 mg PO DIRECTED PRN dental 08/06/18 08/06/18 History work aspirin 81 mg chewable tablet 81 mg PO DAILY 08/06/18 08/06/18 History cholecalciferol (vitamin D3) 50 2,000 unit PO DAILY 08/06/18 08/06/18 History mcg (2,000 unit) capsule (Vitamin D3) levothyroxine 50 mcg tablet 50 mcg PO DAILY 08/06/18 08/06/18 History metoprolol tartrate 25 mg tablet 25 mg PO BID 08/06/18 08/06/18 History simvastatin 20 mg tablet 20 mg PO HS 08/06/18 08/06/18 History warfarin 5 mg tablet 2.5 mg PO WK 08/06/18 08/06/18 History warfarin 5 mg tablet 5 mg PO 6XWK 08/06/18 08/06/18 History Patient History Medical History Thoracic aneurysm without mention of rupture Surgical History History of open heart surgery Family History Other Family history non-contributory Social History Smoking Status: Never smoker Second Hand Exposure: No; Do You Dip or Chew Tobacco: No; Tobacco Cessation Education Requested by Patient: No Hx Alcohol Use: No Hx Substance Use: No Preferred Language: Kyrgyz Communication Ability: Impaired Fruit Room Hand Required: No Beliefs That Will Affect Care: None Current Living Situation: Family Other Information That Helps Us Care for You: No Feels Safe at Home: Yes Safety Concerns: Feels Safe At This Time Assistive Devices: None Review of Systems Review of Systems: All systems reviewed & are unremarkable except as noted in HPI & below Physical Exam Constitutional: cooperative and comfortable; no acute distress Eyes: PERRL, conjunctivae normal, anicteric sclerae Neck: normal visual inspection Respiratory: no respiratory distress and no labored breathing Musculoskeletal: Head/Neck/Chest: normocephalic Skin: No visible rashes or lesions Neurologic: awake Psychiatric: Orientation: alert and oriented x 3 Results & Data ([facility]) Vital Signs (Past 12 Hours) Vital Signs Temp Pulse Pulse Resp BP Pulse Ox O2 Del Method 02/18/22 07:57 36.4 C L 66 20 153/84 H 96 Room Air 02/18/22 00:41 61 PG Care Time/CCT Total # of Minutes Spent Total Time Spent with Patient: Total time spent is greater than 50% in coordination of care (as documented) at patient's floor/unit and/or counseling patient: Coding Level of Care Code 55511 Initial Inpt Care Lvl 2 Diagnoses Elevated PSA R97.20
[2022-02-18 12:56] LABS: Appearance Urine Clear (Clear); Bacteria Urine Automated 2+ (Negative); Bilirubin Urine Negative (Negative); Blood Urine Trace (Negative); Cast Urine Automated 0 /lpf (0-5); Color Urine Yellow; Glucose Urine UA Negative (Negative); Ketones Urine Negative (Negative); Leukocyte Esterase Urine Negative (Negative); Nitrite Urine Negative (Negative); Protein Urine Negative (Negative); RBC Urine Automated 0-4 /hpf (0-4); Urobilinogen Urine Negative (Negative)
--- NOTE | 2022-02-18 14:28 | Hospitalist Progress Note ---
Date of Service February 18, 2022 Assessment & Plan (1) Subdural hematoma, nontraumatic: (2) Atrial fibrillation: (3) S/P AVR (aortic valve replacement): (4) Altered mental state: Plan Patient is a 89-year-old male with past medical history of complete heart block status post pacemaker, atrial fibrillation on Coumadin, hyperlipidemia, BPH, status post bioprosthetic valve placement, CAD status post CABG, hypertension, hypothyroidism presents to the hospital with acute onset of altered mental status. CT head, CT head and neck angio were unremarkable for acute abnormality. MRI brain was done; findings were compatible with small bilateral subdural hematoma at the vertex with extension into the falx. Patient was given 10 mg of IV vitamin K for reversal of Coumadin as per the recommendation by Dr. Mclaughlin. Repeat without without contrast was done in the morning of 02/16 which showed trace residual subdural hematoma along left convexity. On 02/17, patient's mental status change significantly. He was alert oriented x3 and was back to his baseline. Altered mental status Subdural hematoma Atrial fibrillation on Coumadin status post vitamin K on 02/15 Afebrile, normotensive and saturating well in room air. Hemoglobin 13.3; stable.BMP remarkable for mild hyponatremia with sodium of 134. --PT/INR normal. --MRI brain as above. Repeat CT head shows trace residual subdural hemorrhage up to 2 mm. No mass-effect seen --EEG shows mildly slow generalized background abnormality; no focal abnormalities Plan; Hold off on any additional sedatives and Haldol/Zyprexa. -Neurology okay with resuming aspirin. Patient does not require warfarin as per cardiology as he had undergone left atrial appendage clip. -Brandon removed; voiding by himself. -PT OT evaluation. Family thinks that patient will benefit from rehab prior to going home. CT chest on admission showed 7 mm groundglass nodule in right upper lobe. Discussed the finding with his son and patient at bedside. Recommended outpatient follow-up and CT scan. He understood and verbalized instructions. CT abdomen pelvis at admission showed sclerotic lesion within bilateral iliac bone. Findings were described to be nonspecific but skeletal metastatic's were within the differential. Discussed the findings with the son and patient at bedside. He requested obtaining PSA level. PSA elevated. Urology consulted. Full code [id number] DispositionPT OT ordered; family would prefer the patient to go to rehab after discharge before returning home. Case management on board. Admission and Anticipated Discharge Date Admission Date: February 15, 2022 Subjective Patient is sitting up on the side of the bed; not in any distress. He feels that he is back to his baseline. Is alert oriented x4. Review of Systems Review of Systems: All systems reviewed & are unremarkable except as noted in Subjective Physical Exam Physical Exam: Constitutional: Awake, alert, oriented x4. Respiratory: normal respiratory effort, lungs clear to auscultation, no wheeze, rales, rhonchi. Normal insp/exp effort, no accessory muscle use Cardiovascular: RRR, no murmur, no edema Vessels: no JVD or carotid bruit Chest: Pacemaker in place. Abdomen: normal bowel sounds, soft, nontender, no hepatosplenomegaly Musculoskeletal: no cyanosis or clubbing, extremities motor strength 5/5 Skin: no rashes, warm and dry normal turgor Neurologic: PERRL, EOMI, accommodation nl, no face palsy, no dysarthria CN's II- XI intact bilaterally and moves all extremities Psychiatric: A+Ox3, euthymic affect Lymphatic: no cervical or axillary lymphadenopathy : deferred Results & Data Results & Data ([facility]) Vital Signs (Past 12 Hours) Vital Signs Temp Pulse Resp BP Pulse Ox O2 Del Method 02/18/22 11:51 36.5 C 59 L 20 100/65 96 Room Air 02/18/22 07:57 36.4 C L 66 20 153/84 H 96 Room Air Laboratory Results Laboratory Results WBC 8.09 K/ul (4.8-10.8) 02/18/22 06:00 RBC 4.56 M/uL (4.63-6.08) L 02/18/22 06:00 Hgb 13.5 g/dl (14.0-18.0) L 02/18/22 06:00 Hct 40.9 % (40.1-51.0) 02/18/22 06:00 MCV 89.7 fL (80.0-100.0) 02/18/22 06:00 MCH 29.6 pg (25.0-34.0) 02/18/22 06:00 MCHC 33.0 g/dL (32.0-36.0) 02/18/22 06:00 RDW Std Deviation 42.6 fL (36.4-46.3) 02/18/22 06:00 RDW Coeff of Georgette 13.0 % (11.5-14.5) 02/18/22 06:00 Plt Count 145 K/uL (130-400) 02/18/22 06:00 MPV 10.7 fL (9.4-12.4) 02/18/22 06:00 Immature Gran % (Auto) 0.4 % 02/18/22 06:00 Neut % (Auto) 61.7 % 02/18/22 06:00 Lymph % (Auto) 23.4 % 02/18/22 06:00 [place] % (Auto) 12.5 % 02/18/22 06:00 Eos % (Auto) 1.6 % 02/18/22 06:00 Baso % (Auto) 0.4 % 02/18/22 06:00 Neut # (Auto) 5.00 K/uL (1.4-6.5) 02/18/22 06:00 Lymph # (Auto) 1.89 K/uL (1.2-3.4) 02/18/22 06:00 [place] # (Auto) 1.01 K/uL (0.24-0.82) H 02/18/22 06:00 Eos # (Auto) 0.13 K/uL (0-0.50) 02/18/22 06:00 Baso # (Auto) 0.03 K/uL (0-0.2) 02/18/22 06:00 Immature Gran # (Auto) 0.03 K/uL (0.00-0.02) H 02/18/22 06:00 RBC Morphology Unremarkable 02/15/22 01:01 PT 11.4 Seconds (9.0-12.0) 02/18/22 06:00 INR 1.1 (0.9-1.1) 02/18/22 06:00 APTT 29.3 Seconds (21.0-31.0) 02/15/22 01:01 PTT Ratio 1.1 02/15/22 01:01 Sodium 134 mmol/L (136-145) L 02/18/22 06:00 Potassium 3.8 mmol/L (3.5-5.1) 02/18/22 06:00 Chloride 101 mmol/L (98-107) 02/18/22 06:00 Carbon Dioxide 27 mmol/L (21-32) 02/18/22 06:00 Anion Gap 6 (3-11) 02/18/22 06:00 BUN 25 mg/dl (6-23) H 02/18/22 06:00 Creatinine 0.92 mg/dl (0.6-1.4) 02/18/22 06:00 Est Cr Clr Drug Dosing 63.3 ml/min 02/18/22 06:00 Est GFR ( Amer) 85.2 ml/min 02/18/22 06:00 Est GFR (Non-Af Amer) 73.5 ml/min 02/18/22 06:00 BUN/Creatinine Ratio 27.2 (10-20) H 02/18/22 06:00 Glucose 103 mg/dl (70-99(Fasting)) H 02/18/22 06:00 POC Glucose 134 mg/dl (70-99) H 02/16/22 20:23 Estimat Average Glucose 123 mg/dl 02/16/22 13:05 Hemoglobin A1c 5.9 % (4.5-5.6) H 02/16/22 13:05 Calcium 8.9 mg/dl (8.5-10.1) 02/18/22 06:00 Magnesium 1.6 mg/dl (1.7-2.4) L 02/15/22 01:01 Total Bilirubin 0.9 mg/dl (0.2-1.0) 02/15/22 01:01 AST 19 U/L (13-39) 02/15/22 01:01 ALT 14 U/L (7-52) 02/15/22 01:01 Alkaline Phosphatase 63 U/L (34-104) 02/15/22 01:01 Troponin I High Sens 10.7 pg/ml (0-20) 02/15/22 01:01 Total Protein 6.2 gm/dl (6.0-8.3) 02/15/22 01:01 Albumin 3.9 gm/dl (3.4-5.0) 02/15/22 01:01 Globulin 2.3 gm/dl (2.5-4.0) L 02/15/22 01:01 Albumin/Globulin Ratio 1.7 (0.9-2) 02/15/22 01:01 Triglycerides 88 mg/dl (0-150) 02/16/22 13:05 Cholesterol 189 mg/dl (0-200) 02/16/22 13:05 LDL Cholesterol, Calc 115 mg/dl 02/16/22 13:05 VLDL Cholesterol, Calc 18 mg/dl (0-30) 02/16/22 13:05 HDL Cholesterol 56 mg/dl 02/16/22 13:05 Cholesterol/HDL Ratio 3.4 (0-5) 02/16/22 13:05 Prostate Specific Ag 114.698 ng/ml (0-4) H 02/18/22 06:00 Urine Color Yellow 02/18/22 10:30 Urine Appearance Clear (Clear) 02/18/22 10:30 Urine pH 6.0 (4.5-7.5) 02/18/22 10:30 Ur Specific [place] 1.010 (1.000-1.030) 02/18/22 10:30 Urine Protein Negative (Negative) 02/18/22 10:30 Urine Glucose (UA) Negative (Negative) 02/18/22 10:30 Urine Ketones Negative (Negative) 02/18/22 10:30 Urine Blood Trace (Negative) H 02/18/22 10:30 Urine Nitrite Negative (Negative) 02/18/22 10:30 Urine Bilirubin Negative (Negative) 02/18/22 10:30 Urine Urobilinogen Negative (Negative) 02/18/22 10:30 Ur Leukocyte Esterase Negative (Negative) 02/18/22 10:30 Urine WBC (Auto) 1-5 /hpf (0-5) 02/18/22 10:30 Urine RBC (Auto) 0-4 /hpf (0-4) 02/18/22 10:30 U Hyaline Cast (Auto) 0 /lpf (0-5) 02/18/22 10:30 U Epithel Cells (Auto) 5-10 /lpf (0-5) H 02/18/22 10:30 Urine Bacteria (Auto) 2+ (Negative) H 02/18/22 10:30 SARS-CoV-2, RNA, NAAT NEGATIVE (NEGATIVE) 02/15/22 02:20 Impressions Head CTA 02/15/22 00:57 CTA ANGIOGRAPHY OF THE HEAD CLINICAL HISTORY: Stroke Like Symptoms COMPARISON STUDY: Head CT performed earlier today. CTA of the head August 06, 2018. TECHNIQUE: Helical axial images of the head were obtained following uneventful intravenous administration of 116 cc of Optiray. Sagittal and coronal reconstructions were viewed as well as maximal intensity projections on an independent 3-D workstation. Automated exposure control was utilized for the study. A dose lowering technique was utilized adhering to the principles of ALARA. FINDINGS: Please note that the CTA of the neck will be reported separately. Ventricular system is unremarkable. Basal cisterns are patent. There are no extra axial collections. No acute intracranial hemorrhage is identified. There is moderate plaque within bilateral cavernous carotids without significant stenosis. The bilateral M1, M2, A1 and A2 segment are patent. There is no central vessel occlusion. No intracranial aneurysm is identified. Posterior circulation is intact. There is extensive plaque within the right carotid bifurcation without significant stenosis. This is better depicted on the neck CTA. Mild sphenoid sinus polypoid mucosal thickening is present. IMPRESSION: No central vessel occlusion. No intracranial aneurysm. ACT 112: Negative or not required by law. Electronically signed by: Ricardo Chambers M.D. 02/15/2022 8:09 AM Neck CTA 02/15/22 00:57 NECK CTA HISTORY: Stroke Like Symptoms TECHNIQUE: Multiaxial CT images of the neck were performed following the intravenous administration of contrast to evaluate the major cervical vessels. Maximum intensity projection images were also obtained. All measurements were calculated based on NASCET criteria. A dose lowering technique was utilized adhering to the principles of ALARA. COMPARISON STUDY: Neck CTA 08/06/2018. FINDINGS: The aortic arch and proximal great vessels are widely patent. Moderate focal stenosis at the takeoff of the bilateral vertebral arteries due to the calcified plaque. There is also up to 50% stenosis at the proximal bilateral internal carotid arteries due to the moderate calcified plaque. The bilateral common carotid arteries and mid to distal bilateral internal carotid arteries are widely patent. No evidence for arterial dissection or occlusion. IMPRESSION: Mild to moderate stenosis within the bilateral proximal internal carotid arteries and proximal vertebral arteries as described above due to the calcified plaque. No evidence for arterial occlusion. ACT 112: Negative or not required by law. Electronically signed by: Agus Lindo M.D. 02/15/2022 8:45 AM Abdomen/Pelvis CT 02/15/22 04:41 CT OF THE ABDOMEN AND PELVIS WITHOUT CONTRAST CLINICAL HISTORY: ANY BLEEDING. ANEMIA, ON COUMADIN COMPARISON STUDY: Abdominal series August 31, 2006. TECHNIQUE: Axial images of the abdomen and pelvis were obtained without IV contrast. Images were reviewed in the axial, sagittal, and coronal planes. Automated exposure control was utilized for the study. A dose lowering technique was utilized adhering to the principles of ALARA. FINDINGS: Please note that the chest CT will be reported separately. No pneumatosis, free air or portal venous gas is present. Cardiomegaly is noted. There is a prosthetic aortic valve. There is interlobular septal thickening within the lower lungs. There is a probable 1.3 cm medial segment left hepatic lobe cyst. No biliary or pancreatic ductal dilatation is present. There is borderline splenomegaly. Contrast excretion within the collecting systems, ureters and bladder is noted from recent contrast-enhanced CT. A Brandon balloon within the bladder is present. Bladder wall thickening is accentuated by underdistention. Prostate is enlarged, measuring 6.6 cm in transverse dimension. Abdominal aorta is ectatic, measuring 2.6 cm in caliber. There is no retroperitoneal hematoma. There is no hemoperitoneum. No abdominal or pelvic lymphadenopathy is noted. Note is made of a 8.2 cm sclerotic focus within the right iliac bone. There is a 1.7 cm sclerotic lesion within the medial left iliac bone. There is no evidence for a bowel obstruction. The appendix is normal. No acute fracture within the lumbar spine, pelvis or hips is identified. IMPRESSION: 1. No retroperitoneal hematoma. No hemoperitoneum. 2. No acute process within the abdomen or pelvis on unenhanced exam. 3. Sclerotic lesions within the bilateral iliac bones. This finding is nonspecific however skeletal metastases are within the differential. Findings could be correlated with PSA level. This finding will be called/faxed to ordering provider at time of dictation. 4. Enlarged prostate. No lymphadenopathy. 5. No bowel obstruction. No bowel wall thickening on unenhanced exam. ACT 112: Negative or not required by law. Electronically signed by: Ricardo Chambers M.D. 02/15/2022 7:[address] 02/15/22 04:41 CT chest diagnostic wo con CT DOSE: 1439.71 mGy.cm HISTORY: Anemia. Assess for bleeding abnormality. TECHNIQUE: Multiaxial CT images of the chest were performed without contrast. A dose lowering technique was utilized adhering to the principles of ALARA. COMPARISON: Chest CTA 07/27/2017. FINDINGS: Please refer to same day abdomen and pelvis CT for further evaluation of the abdominal structures. There are suboptimal evaluation of the chest due to the respiratory motion artifact. The heart remains mildly enlarged. Is left- sided pacemaker. 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 Mild dilatation of the [place] ascending thoracic aorta just beyond the site of repair measuring 4.4 cm in diameter. This remains unchanged. Moderate calcified plaque within the thoracic aorta. There is contrast within the visualized renal collecting systems from the prior CT examination. No pleural or pericardial effusion. No mediastinal hematoma or lymphadenopathy. Normal caliber esophagus. No pleural or pericardial effusions. There are poststernotomy changes. Patchy sclerosis within the right lateral fifth rib which is new from the prior CT examination. Therefore, an osteoblastic metastatic lesion would be the diagnosis of exclusion. No pneumothorax. The central airways are patent. There is a 3 mm subpleural nodule within the lingula on image 160. Mild interstitial thickening/dependent changes noted at the lung bases. Mild interlobular septal thickening suggestive of mild congestive change. A 7 mm groundglass nodule within the right upper lobe on image 55. Mild nodular thickening along the right minor fissure, unchanged. This is likely benign. IMPRESSION: 1. No mediastinal hematoma identified. 2. Focal area of sclerosis within the right lateral fifth rib which is new from the prior CT examination. An osteoblastic metastatic lesion would be the diagnosis of exclusion. 3. Mild interlobular septal thickening suggestive of mild congestive change. 4. Stable cardiomegaly. 5. A 7 mm groundglass nodule within the right upper lobe. Please refer to the chart below for recommended follow-up. 6. Postoperative changes as described above. There is mild aneurysmal dilatation of the [place] ascending thoracic aorta measuring up to 4.4 cm in diameter. This remains unchanged. Please refer to below summary of Fleischner criteria recommendations for follow- up of incidental CT nodules (Doris Gibson, Guidelines for management of small pulmonary nodules detected on CT scans: A statement from the Fleischner Society, Radiology 237: [phone].) SOLID NODULES Solitary nodule size: <6 mm * Low risk patients: no follow-up needed * high risk patients: optional CT at 12 months Solitary nodule size: 6-8 mm * Low risk patients: follow-up at 6-12 months, then consider further follow-up at 18-24 months * high risk patients: initial follow-up CT at 6-12 months and then at 18-24 months if no change Solitary nodule size: >8 mm * either low or high risk patients - consider follow-up CT at 3 months, and/or CT-PET, and/or biopsy Multiple nodules size: <6 mm * Low risk patients: no routine follow-up * high risk patients: optional CT at 12 months Multiple nodules size: 6-8 mm * Low risk patients: follow-up at 3-6 months, then consider further follow-up at 18-24 months * high risk patients: follow-up at 3-6 months, then at 18-24 months if no change Multiple nodules size: >8 mm * Low risk patients: follow-up at 3-6 months, then consider further follow-up at 18-24 months * high risk patients: follow-up at 3-6 months, then at 18-24 months if no change Note: newly detected indeterminate nodule in persons 35 years of age or older. * Low risk patients: minimal or absent history of smoking and/or other known risk factors * high risk patients: history of smoking or of other known risk factors (e.g. first degree relative with lung cancer, or exposure to asbestos, radon, uranium) * if a nodule up to 8 mm is partly solid or is ground glass further follow-up is required after 24 months to exclude possible slow growing adenocarcinoma (JEAN) SUBSOLID NODULES Solitary pure ground-glass nodule * nodule size <6 mm - no CT follow-up required * nodule size >=6 mm - follow-up CT at 6-12 months, then every 2 years until 5 years Solitary part-solid nodule * nodule size <6 mm - no CT follow-up required * nodule size >=6 mm - follow-up CT at 3-6 months. If unchanged, and solid component remains <6 mm, then annual follow-up for 5 years Multiple subsolid nodules * nodule size <6 mm - follow-up CT at 3-6 months, consider further follow-up at 2 and 4 years if stable * nodule size >=6 mm - follow-up CT at 3-6 months, subsequent management based on the most suspicious nodule(s) ACT 112: Negative or not required by law. Electronically signed by: Agus Lindo M.D. 02/15/2022 9:48 AM Brain MRI 02/15/22 06:01 MR brain wo/w con CLINICAL HISTORY: CVA? Acute change in mental status, found down on floor. TECHNIQUE: Multiplanar and multisequence MR images of the brain were obtained prior to and following administration of gadolinium contrast. Comparison: Comparison is made to CTA head and neck 02/15/2022 FINDINGS: Exam is limited by patient motion. There is thickening and T2 signal in the falx. There are a few foci of restricted diffusion at the vertex. The white matter is unremarkable. Ex vacuo ventriculomegaly and sulcal enlargement is note d compatible with diffuse encephalomalacia. No mass or abnormal enhancement is seen. There is no mass effect or midline shift. No abnormal GRE signal is seen at the site of T2 hyperintensity. No extra axial fluid collections are seen. The corpus callosum, pituitary gland, and cerebellar tonsils appear grossly unremarkable. Flow voids of the major intracranial arterial vessels are identified. The imaged portions of the paranasal sinuses, mastoid air cells, and orbits are unremarkable. IMPRESSION: Findings are compatible with a small bilateral subdural hemorrhage at the vertex with extension into the falx. This appears to be hyperacute to acute. Recommend continued CT follow-up. ACT 112: Negative or not required by law. Electronically signed by: Galindo Winchester M.D. 02/15/2022 1:[address] 02/16/22 04:44 CT SCAN OF THE BRAIN WITHOUT IV CONTRAST CLINICAL HISTORY: Follow-up subdural hemorrhage. COMPARISON STUDY: CT and MRI of the brain dated 02/15/2010. TECHNIQUE: Unenhanced axial CT scan of the brain is performed from the vertex to the skull base. A dose lowering technique was utilized adhering to the principles of ALARA. CT DOSE: 1381.76 mGy.cm FINDINGS: Brain parenchyma: There is trace residual subdural seen along the left convexity on axial image #12. This measures up to 2 mm in diameter. There is no associated mass effect. Subdural hemorrhage previously seen along the right convexity in the midline falx is no longer visualized. There is age-related involutional change noting mild subcortical and periventricular microangiopathic disease. There is no parenchymal hematoma, mass effect, or evidence of acute territorial ischemia by CT criteria. Evans-white matter differentiation is preserved. Ventricles, sulci, cisterns: Prominent secondary to involutional change. Intracranial vasculature: There is atherosclerotic calcification of the cavernous carotid and vertebral arteries. Calvarium: Unremarkable. Sinuses and mastoids: A 1.3 cm retention cyst is noted in the left maxillary antrum. Trace mucosal thickening is seen in the right maxillary antrum. The remaining paranasal sinuses are clear. The mastoid air cells are well pneumatized. Orbits: The bony orbits are grossly intact. There are bilateral ocular lens implants. IMPRESSION: 1. There is trace residual subdural hemorrhage seen along the left convexity. 2. Subdural blood seen along the right convexity and along the midline falx seen on yesterday's MRI is no longer visualized. 3. There is no mass effect or evidence of acute territorial ischemia by CT criteria. ACT 112: Negative or not required by law. Electronically signed by: Ken Trujillo M.D. 02/16/2022 6:34 AM (1) Altered mental state Altered mental status type: unspecified Qualified Code(s): R41.82 - Altered mental status, unspecified
[2022-02-18] MEDS: SIMVASTATIN 20 MG TAB PO SCH (21:08)
[2022-02-19] MEDS: LEVOTHYROXINE SODIUM 50 MCG TABLET PO SCH (06:00)
[2022-02-19 07:06] LABS: Basophils # (auto) 0.05 K/uL (0-0.2); Basophils % (auto) 0.6 %; Eosinophils # (auto) 0.15 K/uL (0-0.50); Eosinophils % (auto) 1.8 %; Hematocrit (blood only) 43.2 % (40.1-51.0); Hemoglobin 14.2 g/dl (14.0-18.0); Immature Granulocytes # (auto) 0.02 K/uL (0.00-0.02); Immature Granulocytes % (auto) 0.2 %; Lymphocytes % (auto) 31.6 %; Mean Corpuscular Hemoglobin 29.5 pg (25.0-34.0); Mean Corpuscular Hgb Conc 32.9 g/dL (32.0-36.0); Mean Corpuscular Volume 89.8 fL (80.0-100.0); Monocytes # (auto) 0.85 K/uL (0.24-0.82); Monocytes % (auto) 9.9 %; Neutrophils # (auto) 4.78 K/uL (1.4-6.5); Neutrophils % (auto) 55.9 %; Platelet Count 180 K/uL (130-400); RDW Coefficient of Variation 13.1 % (11.5-14.5); RDW Standard Deviation 42.7 fL (36.4-46.3); Red Blood Count 4.81 M/uL (4.63-6.08); White Blood Count 8.55 K/ul (4.8-10.8)
[2022-02-19 07:20] LABS: INR 1.1 (0.9-1.1); Prothrombin Time 11.2 Seconds (9.0-12.0)
[2022-02-19 07:41] LABS: Calcium 9.2 mg/dl (8.5-10.1); Creatinine Clr Calc Pharmacy 61.9 ml/min; Est GFR (Non-African American) 71.6 ml/min; Potassium 4.1 mmol/L (3.5-5.1)
[2022-02-19] MEDS: CHOLECALCIFEROL 1,000 UNITS 25 MCG TAB PO SCH (08:28)
[2022-02-19] MEDS: METOPROLOL TARTRATE 25 MG TAB PO SCH (08:28)
[2022-02-19] MEDS: ASPIRIN 81 MG CHEW PO SCH (08:28)
--- NOTE | 2022-02-19 13:05 | Hospitalist Progress Note ---
Date of Service February 19, 2022 Assessment & Plan (1) Subdural hematoma, nontraumatic: (2) Atrial fibrillation: (3) S/P AVR (aortic valve replacement): (4) Altered mental state: Plan Patient is a 89-year-old male with past medical history of complete heart block status post pacemaker, atrial fibrillation on Coumadin, hyperlipidemia, BPH, status post bioprosthetic valve placement, CAD status post CABG, hypertension, hypothyroidism presents to the hospital with acute onset of altered mental status. CT head, CT head and neck angio were unremarkable for acute abnormality. MRI brain was done; findings were compatible with small bilateral subdural hematoma at the vertex with extension into the falx. Patient was given 10 mg of IV vitamin K for reversal of Coumadin as per the recommendation by Dr. Mclaughlin. Repeat without without contrast was done in the morning of 02/16 which showed trace residual subdural hematoma along left convexity. On 02/17, patient's mental status change significantly. He was alert oriented x3 and was back to his baseline. Altered mental status, Resolved Nontraumatic subdural hematoma due to anticoagulant-coumadin Atrial fibrillation on Coumadin status post vitamin K on 02/15 Hyponatremia, resolved Afebrile, normotensive and saturating well in room air. Hemoglobin 13.3; stable. Na- 135 --PT/INR normal. --MRI brain as above. Repeat CT head shows trace residual subdural hemorrhage up to 2 mm. No mass-effect seen --EEG shows mildly slow generalized background abnormality; no focal abnormalities Plan; -Patient is started on aspirin based on recommendation by neurology. Simvastatin changed to rosuvastatin. Patient does not require warfarin as per cardiology as he had undergone left atrial appendage clip. -PT OT recommends rehab; case management on board for placement. -Plan to do MRI with gadolinium enhancement in 2 weeks time to ensure resolution of trace nontraumatic subdural hematoma as outpatient as per recommendation by neurology. CT chest on admission showed 7 mm groundglass nodule in right upper lobe. Discussed the finding with his son and patient at bedside. Recommended outpatient follow-up and CT scan. He understood and verbalized instructions. CT abdomen pelvis at admission showed sclerotic lesion within bilateral iliac bone. Findings were described to be nonspecific but skeletal metastatic's were within the differential. Discussed the findings with the son and patient at bedside. He requested obtaining PSA level. PSA elevated. Urology followed patient on 02/18; recommend following up as outpatient for work-up for possible prostate cancer. Full code [id number] DispositionFamily would prefer the patient to go to rehab after discharge before returning home. Case management on board. Admission and Anticipated Discharge Date Admission Date: February 15, 2022 Subjective Patient seen and examined at bedside. Is comfortably sitting up on the chair; not in any distress. He is alert oriented x4. He denies headache, weakness/numbness of any body part, chest pain, shortness of breath, abdominal pain or urinary symptoms. Telemetry shows paced rhythm. Review of Systems Review of Systems: All systems reviewed & are unremarkable except as noted in Subjective Physical Exam Physical Exam: Constitutional: Awake, alert, oriented x4. Respiratory: normal respiratory effort, lungs clear to auscultation, no wheeze, rales, rhonchi. Normal insp/exp effort, no accessory muscle use Cardiovascular: RRR, no murmur, no edema Vessels: no JVD or carotid bruit Chest: Pacemaker in place. Abdomen: normal bowel sounds, soft, nontender, no hepatosplenomegaly Musculoskeletal: no cyanosis or clubbing, extremities motor strength 5/5 Skin: no rashes, warm and dry normal turgor Neurologic: PERRL, EOMI, accommodation nl, no face palsy, no dysarthria CN's II- XI intact bilaterally and moves all extremities Psychiatric: A+Ox3, euthymic affect Lymphatic: no cervical or axillary lymphadenopathy : deferred Results & Data Results & Data ([facility]) Vital Signs (Past 12 Hours) Vital Signs Temp Pulse Pulse Resp BP Pulse Ox O2 Del Method 02/19/22 11:04 36.7 C 64 19 115/69 97 Room Air 02/19/22 08:27 68 137/78 02/19/22 07:00 60 02/19/22 07:08 36.6 C 61 19 149/72 H 97 Room Air 02/19/22 03:23 36.6 C 61 18 125/71 97 Room Air 02/19/22 01:50 62 Laboratory Results Laboratory Results WBC 8.55 K/ul (4.8-10.8) 02/19/22 06:00 RBC 4.81 M/uL (4.63-6.08) 02/19/22 06:00 Hgb 14.2 g/dl (14.0-18.0) 02/19/22 06:00 Hct 43.2 % (40.1-51.0) 02/19/22 06:00 MCV 89.8 fL (80.0-100.0) 02/19/22 06:00 MCH 29.5 pg (25.0-34.0) 02/19/22 06:00 MCHC 32.9 g/dL (32.0-36.0) 02/19/22 06:00 RDW Std Deviation 42.7 fL (36.4-46.3) 02/19/22 06:00 RDW Coeff of Georgette 13.1 % (11.5-14.5) 02/19/22 06:00 Plt Count 180 K/uL (130-400) 02/19/22 06:00 MPV 11.0 fL (9.4-12.4) 02/19/22 06:00 Immature Gran % (Auto) 0.2 % 02/19/22 06:00 Neut % (Auto) 55.9 % 02/19/22 06:00 Lymph % (Auto) 31.6 % 02/19/22 06:00 Castro % (Auto) 9.9 % 02/19/22 06:00 Eos % (Auto) 1.8 % 02/19/22 06:00 Baso % (Auto) 0.6 % 02/19/22 06:00 Neut # (Auto) 4.78 K/uL (1.4-6.5) 02/19/22 06:00 Lymph # (Auto) 2.70 K/uL (1.2-3.4) 02/19/22 06:00 Castro # (Auto) 0.85 K/uL (0.24-0.82) H 02/19/22 06:00 Eos # (Auto) 0.15 K/uL (0-0.50) 02/19/22 06:00 Baso # (Auto) 0.05 K/uL (0-0.2) 02/19/22 06:00 Immature Gran # (Auto) 0.02 K/uL (0.00-0.02) 02/19/22 06:00 RBC Morphology Unremarkable 02/15/22 01:01 PT 11.2 Seconds (9.0-12.0) 02/19/22 06:00 INR 1.1 (0.9-1.1) 02/19/22 06:00 APTT 29.3 Seconds (21.0-31.0) 02/15/22 01:01 PTT Ratio 1.1 02/15/22 01:01 Sodium 135 mmol/L (136-145) L 02/19/22 06:00 Potassium 4.1 mmol/L (3.5-5.1) 02/19/22 06:00 Chloride 103 mmol/L (98-107) 02/19/22 06:00 Carbon Dioxide 27 mmol/L (21-32) 02/19/22 06:00 Anion Gap 5 (3-11) 02/19/22 06:00 BUN 31 mg/dl (6-23) H 02/19/22 06:00 Creatinine 0.94 mg/dl (0.6-1.4) 02/19/22 06:00 Est Cr Clr Drug Dosing 61.9 ml/min 02/19/22 06:00 Est GFR ( Amer) 83.0 ml/min 02/19/22 06:00 Est GFR (Non-Af Amer) 71.6 ml/min 02/19/22 06:00 BUN/Creatinine Ratio 33.0 (10-20) H 02/19/22 06:00 Glucose 108 mg/dl (70-99(Fasting)) H 02/19/22 06:00 POC Glucose 134 mg/dl (70-99) H 02/16/22 20:23 Estimat Average Glucose 123 mg/dl 02/16/22 13:05 Hemoglobin A1c 5.9 % (4.5-5.6) H 02/16/22 13:05 Calcium 9.2 mg/dl (8.5-10.1) 02/19/22 06:00 Magnesium 1.6 mg/dl (1.7-2.4) L 02/15/22 01:01 Total Bilirubin 0.9 mg/dl (0.2-1.0) 02/15/22 01:01 AST 19 U/L (13-39) 02/15/22 01:01 ALT 14 U/L (7-52) 02/15/22 01:01 Alkaline Phosphatase 63 U/L (34-104) 02/15/22 01:01 Troponin I High Sens 10.7 pg/ml (0-20) 02/15/22 01:01 Total Protein 6.2 gm/dl (6.0-8.3) 02/15/22 01:01 Albumin 3.9 gm/dl (3.4-5.0) 02/15/22 01:01 Globulin 2.3 gm/dl (2.5-4.0) L 02/15/22 01:01 Albumin/Globulin Ratio 1.7 (0.9-2) 02/15/22 01:01 Triglycerides 88 mg/dl (0-150) 02/16/22 13:05 Cholesterol 189 mg/dl (0-200) 02/16/22 13:05 LDL Cholesterol, Calc 115 mg/dl 02/16/22 13:05 VLDL Cholesterol, Calc 18 mg/dl (0-30) 02/16/22 13:05 HDL Cholesterol 56 mg/dl 02/16/22 13:05 Cholesterol/HDL Ratio 3.4 (0-5) 02/16/22 13:05 Prostate Specific Ag 114.698 ng/ml (0-4) H 02/18/22 06:00 Urine Color Yellow 02/18/22 10:30 Urine Appearance Clear (Clear) 02/18/22 10:30 Urine pH 6.0 (4.5-7.5) 02/18/22 10:30 Ur Specific [place] 1.010 (1.000-1.030) 02/18/22 10:30 Urine Protein Negative (Negative) 02/18/22 10:30 Urine Glucose (UA) Negative (Negative) 02/18/22 10:30 Urine Ketones Negative (Negative) 02/18/22 10:30 Urine Blood Trace (Negative) H 02/18/22 10:30 Urine Nitrite Negative (Negative) 02/18/22 10:30 Urine Bilirubin Negative (Negative) 02/18/22 10:30 Urine Urobilinogen Negative (Negative) 02/18/22 10:30 Ur Leukocyte Esterase Negative (Negative) 02/18/22 10:30 Urine WBC (Auto) 1-5 /hpf (0-5) 02/18/22 10:30 Urine RBC (Auto) 0-4 /hpf (0-4) 02/18/22 10:30 U Hyaline Cast (Auto) 0 /lpf (0-5) 02/18/22 10:30 U Epithel Cells (Auto) 5-10 /lpf (0-5) H 02/18/22 10:30 Urine Bacteria (Auto) 2+ (Negative) H 02/18/22 10:30 SARS-CoV-2, RNA, NAAT NEGATIVE (NEGATIVE) 02/15/22 02:20 Impressions Head CTA 02/15/22 00:57 CTA ANGIOGRAPHY OF THE HEAD CLINICAL HISTORY: Stroke Like Symptoms COMPARISON STUDY: Head CT performed earlier today. CTA of the head August 06, 2018. TECHNIQUE: Helical axial images of the head were obtained following uneventful intravenous administration of 116 cc of Optiray. Sagittal and coronal reconstructions were viewed as well as maximal intensity projections on an independent 3-D workstation. Automated exposure control was utilized for the study. A dose lowering technique was utilized adhering to the principles of ALARA. FINDINGS: Please note that the CTA of the neck will be reported separately. Ventricular system is unremarkable. Basal cisterns are patent. There are no extra axial collections. No acute intracranial hemorrhage is identified. There is moderate plaque within bilateral cavernous carotids without significant stenosis. The bilateral M1, M2, A1 and A2 segment are patent. There is no central vessel occlusion. No intracranial aneurysm is identified. Posterior circulation is intact. There is extensive plaque within the right carotid bifurcation without significant stenosis. This is better depicted on the neck CTA. Mild sphenoid sinus polypoid mucosal thickening is present. IMPRESSION: No central vessel occlusion. No intracranial aneurysm. ACT 112: Negative or not required by law. Electronically signed by: Ricardo Chambers M.D. 02/15/2022 8:09 AM Neck CTA 02/15/22 00:57 NECK CTA HISTORY: Stroke Like Symptoms TECHNIQUE: Multiaxial CT images of the neck were performed following the intravenous administration of contrast to evaluate the major cervical vessels. Maximum intensity projection images were also obtained. All measurements were calculated based on NASCET criteria. A dose lowering technique was utilized adhering to the principles of ALARA. COMPARISON STUDY: Neck CTA 08/06/2018. FINDINGS: The aortic arch and proximal great vessels are widely patent. Moderate focal stenosis at the takeoff of the bilateral vertebral arteries due to the calcified plaque. There is also up to 50% stenosis at the proximal bilateral internal carotid arteries due to the moderate calcified plaque. The bilateral common carotid arteries and mid to distal bilateral internal carotid arteries are widely patent. No evidence for arterial dissection or occlusion. IMPRESSION: Mild to moderate stenosis within the bilateral proximal internal carotid michael cayetano and proximal vertebral arteries as described above due to the calcified plaque. No evidence for arterial occlusion. ACT 112: Negative or not required by law. Electronically signed by: Agus Lindo M.D. 02/15/2022 8:45 AM Abdomen/Pelvis CT 02/15/22 04:41 CT OF THE ABDOMEN AND PELVIS WITHOUT CONTRAST CLINICAL HISTORY: ANY BLEEDING. ANEMIA, ON COUMADIN COMPARISON STUDY: Abdominal series August 31, 2006. TECHNIQUE: Axial images of the abdomen and pelvis were obtained without IV contrast. Images were reviewed in the axial, sagittal, and coronal planes. Automated exposure control was utilized for the study. A dose lowering technique was utilized adhering to the principles of ALARA. FINDINGS: Please note that the chest CT will be reported separately. No pneumatosis, free air or portal venous gas is present. Cardiomegaly is noted. There is a prosthetic aortic valve. There is interlobular septal thickening within the lower lungs. There is a probable 1.3 cm medial segment left hepatic lobe cyst. No biliary or pancreatic ductal dilatation is present. There is borderline splenomegaly. Contrast excretion within the collecting systems, ureters and bladder is noted from recent contrast-enhanced CT. A Brandon balloon within the bladder is present. Bladder wall thickening is accentuated by underdistention. Prostate is enlarged, measuring 6.6 cm in transverse dimension. Abdominal aorta is ectatic, measuring 2.6 cm in caliber. There is no retroperitoneal hematoma. There is no hemoperitoneum. No abdominal or pelvic lymphadenopathy is noted. Note is made of a 8.2 cm sclerotic focus within the right iliac bone. There is a 1.7 cm sclerotic lesion within the medial left iliac bone. There is no evidence for a bowel obstruction. The appendix is normal. No acute fracture within the lumbar spine, pelvis or hips is identified. IMPRESSION: 1. No retroperitoneal hematoma. No hemoperitoneum. 2. No acute process within the abdomen or pelvis on unenhanced exam. 3. Sclerotic lesions within the bilateral iliac bones. This finding is nonspecific however skeletal metastases are within the differential. Findings could be correlated with PSA level. This finding will be called/faxed to ordering provider at time of dictation. 4. Enlarged prostate. No lymphadenopathy. 5. No bowel obstruction. No bowel wall thickening on unenhanced exam. ACT 112: Negative or not required by law. Electronically signed by: Ricardo Chambers M.D. 02/15/2022 7:[address] 02/15/22 04:41 CT chest diagnostic wo con CT DOSE: 1439.71 mGy.cm HISTORY: Anemia. Assess for bleeding abnormality. TECHNIQUE: Multiaxial CT images of the chest were performed without contrast. A dose lowering technique was utilized adhering to the principles of ALARA. COMPARISON: Chest CTA 07/27/2017. FINDINGS: Please refer to same day abdomen and pelvis CT for further evaluation of the abdominal structures. There are suboptimal evaluation of the chest due to the respiratory motion artifact. The heart remains mildly enlarged. Is left- sided pacemaker. Postoperative changes consistent with prior aortic valve pros thesis and repair of an ascending thoracic aortic aneurysm. Mild dilatation of the [place] ascending thoracic aorta just beyond the site of repair measuring 4.4 cm in diameter. This remains unchanged. Moderate calcified plaque within the thoracic aorta. There is contrast within the visualized renal collecting systems from the prior CT examination. No pleural or pericardial effusion. No mediastinal hematoma or lymphadenopathy. Normal caliber esophagus. No pleural or pericardial effusions. There are poststernotomy changes. Patchy sclerosis within the right lateral fifth rib which is new from the prior CT examination. Therefore, an osteoblastic metastatic lesion would be the diagnosis of exclusion. No pneumothorax. The central airways are patent. There is a 3 mm subpleural nodule within the lingula on image 160. Mild interstitial thickening/dependent changes noted at the lung bases. Mild interlobular septal thickening suggestive of mild congestive change. A 7 mm groundglass nodule within the right upper lobe on image 55. Mild nodular thickening along the right minor fissure, unchanged. This is likely benign. IMPRESSION: 1. No mediastinal hematoma identified. 2. Focal area of sclerosis within the right lateral fifth rib which is new from the prior CT examination. An osteoblastic metastatic lesion would be the diagnosis of exclusion. 3. Mild interlobular septal thickening suggestive of mild congestive change. 4. Stable cardiomegaly. 5. A 7 mm groundglass nodule within the right upper lobe. Please refer to the chart below for recommended follow-up. 6. Postoperative changes as described above. There is mild aneurysmal dilatation of the [place] ascending thoracic aorta measuring up to 4.4 cm in diameter. This remains unchanged. Please refer to below summary of Fleischner criteria recommendations for follow- up of incidental CT nodules (Doris Gibson, Guidelines for management of small pulmonary nodules detected on CT scans: A statement from the Fleischner Society, Radiology 237: [phone].) SOLID NODULES Solitary nodule size: <6 mm * Low risk patients: no follow-up needed * high risk patients: optional CT at 12 months Solitary nodule size: 6-8 mm * Low risk patients: follow-up at 6-12 months, then consider further follow-up at 18-24 months * high risk patients: initial follow-up CT at 6-12 months and then at 18-24 months if no change Solitary nodule size: >8 mm * either low or high risk patients - consider follow-up CT at 3 months, and/or CT-PET, and/or biopsy Multiple nodules size: <6 mm * Low risk patients: no routine follow-up * high risk patients: optional CT at 12 months Multiple nodules size: 6-8 mm * Low risk patients: follow-up at 3-6 months, then consider further follow-up at 18-24 months * high risk patients: follow-up at 3-6 months, then at 18-24 months if no change Multiple nodules size: >8 mm * Low risk patients: follow-up at 3-6 months, then consider further follow-up at 18-24 months * high risk patients: follow-up at 3-6 months, then at 18-24 months if no change Note: newly detected indeterminate nodule in persons 35 years of age or older. * Low risk patients: minimal or absent history of smoking and/or other known risk factors * high risk patients: history of smoking or of other known risk factors (e.g. first degree relative with lung cancer, or exposure to asbestos, radon, uranium) * if a nodule up to 8 mm is partly solid or is ground glass further follow-up is required after 24 months to exclude possible slow growing adenocarcinoma (JEAN) SUBSOLID NODULES Solitary pure ground-glass nodule * nodule size <6 mm - no CT follow-up required * nodule size >=6 mm - follow-up CT at 6-12 months, then every 2 years until 5 years Solitary part-solid nodule * nodule size <6 mm - no CT follow-up required * nodule size >=6 mm - follow-up CT at 3-6 months. If unchanged, and solid component remains <6 mm, then annual follow-up for 5 years Multiple subsolid nodules * nodule size <6 mm - follow-up CT at 3-6 months, consider further follow-up at 2 and 4 years if stable * nodule size >=6 mm - follow-up CT at 3-6 months, subsequent management based on the most suspicious nodule(s) ACT 112: Negative or not required by law. Electronically signed by: Agus Lindo M.D. 02/15/2022 9:48 AM Brain MRI 02/15/22 06:01 MR brain wo/w con CLINICAL HISTORY: CVA? Acute change in mental status, found down on floor. TECHNIQUE: Multiplanar and multisequence MR images of the brain were obtained prior to and following administration of gadolinium contrast. Comparison: Comparison is made to CTA head and neck 02/15/2022 FINDINGS: Exam is limited by patient motion. There is thickening and T2 signal in the fal x. There are a few foci of restricted diffusion at the vertex. The white matter is unremarkable. Ex vacuo ventriculomegaly and sulcal enlargement is noted compatible with diffuse encephalomalacia. No mass or abnormal enhancement is seen. There is no mass effect or midline shift. No abnormal GRE signal is seen at the site of T2 hyperintensity. No extra axial fluid collections are seen. The corpus callosum, pituitary gland, and cerebellar tonsils appear grossly unremarkable. Flow voids of the major intracranial arterial vessels are identified. The imaged portions of the paranasal sinuses, mastoid air cells, and orbits are unremarkable. IMPRESSION: Findings are compatible with a small bilateral subdural hemorrhage at the vertex with extension into the falx. This appears to be hyperacute to acute. Recommend continued CT follow-up. ACT 112: Negative or not required by law. Electronically signed by: Galindo Winchester M.D. 02/15/2022 1:[address] 02/16/22 04:44 CT SCAN OF THE BRAIN WITHOUT IV CONTRAST CLINICAL HISTORY: Follow-up subdural hemorrhage. COMPARISON STUDY: CT and MRI of the brain dated 02/15/2010. TECHNIQUE: Unenhanced axial CT scan of the brain is performed from the vertex to the skull base. A dose lowering technique was utilized adhering to the principles of ALARA. CT DOSE: 1381.76 mGy.cm FINDINGS: Brain parenchyma: There is trace residual subdural seen along the left convexity on axial image #12. This measures up to 2 mm in diameter. There is no associated mass effect. Subdural hemorrhage previously seen along the right convexity in the midline falx is no longer visualized. There is age-related involutional change noting mild subcortical and periventricular microangiopathic disease. There is no parenchymal hematoma, mass effect, or evidence of acute territorial ischemia by CT criteria. Evans-white matter differentiation is preserved. Ventricles, sulci, cisterns: Prominent secondary to involutional change. Intracranial vasculature: There is atherosclerotic calcification of the cavernous carotid and vertebral arteries. Calvarium: Unremarkable. Sinuses and mastoids: A 1.3 cm retention cyst is noted in the left maxillary antrum. Trace mucosal thickening is seen in the right maxillary antrum. The remaining paranasal sinuses are clear. The mastoid air cells are well pneumatized. Orbits: The bony orbits are grossly intact. There are bilateral ocular lens implants. IMPRESSION: 1. There is trace residual subdural hemorrhage seen along the left convexity. 2. Subdural blood seen along the right convexity and along the midline falx seen on yesterday's MRI is no longer visualized. 3. There is no mass effect or evidence of acute territorial ischemia by CT criteria. ACT 112: Negative or not required by law. Electronically signed by: Ken Trujillo M.D. 02/16/2022 6:34 AM (1) Altered mental state Altered mental status type: unspecified Qualified Code(s): R41.82 - Altered mental status, unspecified
[2022-02-19] MEDS ORDERED: STROKE PATIENT DISCHARGE STA (14:31)
--- NOTE | 2022-02-19 16:20 | Electrocardiogram Report ---
Test Reason : Blood Pressure : / mmHG Vent. Rate : 060 BPM Atrial Rate : 050 BPM P-R Int : 000 ms QRS Dur : 184 ms QT Int : 500 ms P-R-T Axes : 086 -74 086 degrees QTc Int : 500 ms Ventricular-paced rhythm Abnormal ECG When compared with ECG of 15-FEB-2022 01:27, Vent. rate has decreased BY 3 BPM Confirmed by Bradley Cantu ([id number]) on 02/19/2022 4:20:37 PM Referred By: REFERRED SELF Confirmed By:Luisito Cantu
--- NOTE | 2022-02-19 16:47 | Discharge Summary ---
Date of Service February 19, 2022 Admission HPI Per Admitting Provider This is an 89-year-old male with past medical history significant for congenital bicuspid aortic valve, status post aortic bioprosthetic valve replacement, CAD status post CABG, aortic root ascending replacement, complete heart block requiring single-chamber pacemaker, chronic atrial fibrillation, hypertension, hyperlipidemia, hypothyroidism, BPH, migraines, presents with altered mental status. As per the , the patient was doing fine. He drove his car in the evening and there were no other symptoms. He was apparently doing fine. He complained of headache and he told her that he was going to get Tylenol at around 11:30 p.m. He went to get Tylenol and the next thing she heard was he had fallen down. He was close to the bathroom, and the patient was unresponsive. She called the family and EMS and the patient was brought in here. On the way, there was question of some facial droop and stroke alert was called. When the patient came to the ER, he was agitated and he was given Ativan and Haldol and b ecame drowsy. Initial workup with CTA of the head and neck and CT of the head was unremarkable. Blood pressures were running high. He was put on 3 L OxyMask, saturating okay. His hemoglobin is 9.8, his recent hemoglobin was 14.6 last month. Sodium is 132, creatinine 0.9. Rest of the labs are okay. SARS-CoV-2 rapid test negative. As per the , there was no cough or fever and no other complaints before all this happened. Currently, the patient is drowsy, seems somewhat restless and the family is holding his legs, blood pressure somewhat running high. Admission Exam Per Admitting Provider GENERAL: The patient is currently drowsy and somewhat restless. VITAL SIGNS: Temperature 36.8, pulse 60, respiratory rate 18, blood pressure 177/84, oxygen 95% on 3 liters OxyMask. HEENT: Pupils equal, round and reactive to light. No obvious facial droop seen. NECK: No neck masses seen. CARDIOVASCULAR: S1 and S2 heard. Regular rate and rhythm. No murmur, no gallop. RESPIRATORY SYSTEM: Normal AP diameter. No accessory muscle use. No wheezing or crackles. ABDOMEN: Soft, bowel sounds present, no distention. CENTRAL NERVOUS SYSTEM: Drowsy, moving all extremities, somewhat restless. No obvious facial droop seen. EXTREMITIES: No edema, no erythema. Principal Diagnosis Altered mental status, Resolved Nontraumatic subdural hematoma due to anticoagulant-coumadin Atrial fibrillation on Coumadin status post vitamin K on 02/15 Hyponatremia, resolved Discharge Exam Constitutional: Awake, alert, oriented x4. Respiratory: normal respiratory effort, lungs clear to auscultation, no wheeze, rales, rhonchi. Normal insp/exp effort, no accessory muscle use Cardiovascular: RRR, no murmur, no edema Vessels: no JVD or carotid bruit Chest: Pacemaker in place. Abdomen: normal bowel sounds, soft, nontender, no hepatosplenomegaly Musculoskeletal: no cyanosis or clubbing, extremities motor strength 5/5 Skin: no rashes, warm and dry normal turgor Neurologic: PERRL, EOMI, accommodation nl, no face palsy, no dysarthria CN's II- XI intact bilaterally and moves all extremities Psychiatric: A+Ox3, euthymic affect Lymphatic: no cervical or axillary lymphadenopathy : deferred Discharge Data Allergies Allergy/AdvReac Type Severity Reaction Status Date / Time No Known Allergies Allergy Verified 08/06/18 17:08 Consultations 02/15/22 02:25 ED Decision to Admit Stat 02/15/22 08:00 Consult Cardiology Routine Consult Neurology Routine 02/15/22 11:34 Consult Anesthesiology Routine 02/18/22 07:37 Consult Urology Routine Ordered Studies 02/15/22 00:57 CT angio head w con Stat CT angio neck with con Stat CT head/brain wo con Stat 02/15/22 04:41 CT Abd and Pelvis [CT abd pelvis wo con] Urgent CT chest diagnostic wo con Urgent 02/15/22 06:01 MR brain wo/w con Urgent 02/16/22 04:44 CT head/brain wo con AMLAB Hospital Course (1) Subdural hematoma, nontraumatic: (2) Atrial fibrillation: (3) S/P AVR (aortic valve replacement): (4) Altered mental state: Plan Patient is a 89-year-old male with past medical history of complete heart block status post pacemaker, atrial fibrillation on Coumadin, hyperlipidemia, BPH, status post bioprosthetic valve placement, CAD status post CABG, hypertension, hypothyroidism presents to the hospital with acute onset of altered mental status. CT head, CT head and neck angio were unremarkable for acute abnormality. MRI brain was done; findings were compatible with small bilateral subdural hematoma at the vertex with extension into the falx. Patient was given 10 mg of IV vitamin K for reversal of Coumadin as per the recommendation by Dr. Mclaughlin. Repeat CT without contrast was done in the morning of 02/16 which showed trace residual subdural hematoma along left convexity. On 02/17, patient's mental status change significantly. He was alert oriented x3 and was back to his baseline. His PT/INR was normalized. Neurology recommended MRI with gadolinium enhancement in 2 weeks time to ensure resolution of the subdural hematoma. He developed mild hyponatremia with sodium of 132; managed with fluid restriction. CT abdomen pelvis at admission showed sclerotic lesion within bilateral iliac bone. Findings were described to be nonspecific but skeletal metastatic's were within the differential. Discussed the findings with the son and patient at bedside. He requested obtaining PSA level. PSA was found to be elevated. Urology followed patient on 02/18; recommend following up as outpatient for work-up for possible prostate cancer. CT chest on admission showed 7 mm groundglass nodule in right upper lobe. Discussed the finding with his son and patient at bedside. Recommended outpatient follow-up and CT scan. He was started on aspirin as per recommendation by neurology. PT OT evaluation was done and he was recommended acute rehab. Warfarin was discontinued indefinitely. Discharge instruction where given to him and his son at bedside. Total Time Total Time Spent Total Time Spent (In Minutes): 35 Total Time Includes: Examination of the Patient, Discharge Planning, Medication Reconciliation, Communication With Other Providers and Other Discharge Plan Discharge Items Patient Disposition: Transfer Inpatient Rehab Fac Reason For Visit: CVA SYMPTOMS Discharge Diagnosis: Altered mental status, Resolved Nontraumatic subdural hematoma due to anticoagulant-coumadin Atrial fibrillation on Coumadin status post vitamin K on 02/15 Hyponatremia, resolved Activity: Resume your previous activity Non-emergency contact: Primary Care Provider Call non-emergency contact if: you have any medication questions and your symptoms worsen Follow-up/Referrals: Faustino Dc MD [Primary Care Provider] - ( ) Diet: Regular Addtl Attending Provider Instructions: Stop warfarin . You are restarted on aspirin 81 mg as per recommendation by neurology. Please follow-up with your primary care doctor as soon as possible. You will need MRI Brain with gadolinium contrast in 2 weeks to follow-up on the subdural hematoma. You will need to follow-up with neurology as outpatient after the MRI is performed. The CT chest on admission showed 7 mm ground glass opacity in right upper lobe. Please discuss this finding with your primary care doctor. You may need follow-up imaging to follow-up on the nodule. The CT scan of abdomen and pelvis on admission had shown sclerotic lesion within bilateral iliac bone. Your PSA was found to be elevated. Please follow-up with urology as outpatient for further work-up. 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 Pending Studies at Discharge: No Stand-Alone Forms: My [facility] Skilled Items Patient informed of condition?: Yes DNR: No Discharge Level of Care: Acute rehab Communicable Disease: No Discharge Prognosis: Stable Lines: None Urinary Catheter: No Medications and DC Order Prescriptions: New simvastatin 20 mg tablet 20 mg PO DAILY Qty: 30 0RF Continued amoxicillin 500 mg Capsule 2,000 mg PO DIRECTED PRN (Reason: dental work) acetaminophen 500 mg Tablet 1,000 mg PO Q6H PRN (Reason: pain or fever) Rx Instructions: no more than 2,000 mg per day levothyroxine 50 mcg Tablet 50 mcg PO DAILY aspirin 81 mg Tablet,Chewable 81 mg PO DAILY metoprolol tartrate 25 mg Tablet 25 mg PO BID cholecalciferol (vitamin D3) [Vitamin D3] 2,000 unit Capsule 2,000 unit PO DAILY Discontinued simvastatin 20 mg Tablet 20 mg PO HS warfarin 5 mg Tablet 5 mg PO [id number] Rx Instructions: sun, mon, wed, THRU, fri, sat warfarin 5 mg Tablet 2.5 mg PO WK Rx Instructions: ON friday Discharge Orders: Discharge Order (Routine); Ordered 02/19/22 Ordered By: Austin Nath Admission Data Admit Date/Time: 02/15/22 04:26 Attending Provider: Austin Nath Admit Provider: Jovany Zamudio Primary Care Provider: Faustino Dc Other Providers: Jovany Zamudio ; Jose Antonio Trejo ; Rodríguez Rousseau ; Rajan Fontanez ; Stephanie Dykes ; Lilli Alvarez ; Hasrh Torres ; Lilli Frazier ; Antonio Heaton ; Berta Alvarado ; Kumar Templeton ; Vira Glynn ; Tri Yañez ; Lorenzo Rose ; Jacob Pederson ; [place],[facility] ; [facility] [place] ; [facility] Other Interventions: Discharge Summary Assessment (RN) Last Done: 02/19/22 14:49
[2022-02-20] MEDS ORDERED: ROSUVASTATIN CALCIUM 10 MG TAB PO SCH (09:00)
== END 2022-02-19 15:55 | DRG 813 ==
LOC: ED 00:50 → 2S 04:26
DX: Z79.01 Long term (current) use of anticoagulants; Y92.019 Unspecified place in single-family (private) house as the place of occurrence of the external cause; D64.9 Anemia, unspecified; I48.20 Chronic atrial fibrillation, unspecified; T45.515A Adverse effect of anticoagulants, initial encounter; I25.10 Atherosclerotic heart disease of native coronary artery without angina pectoris; Z95.0 Presence of cardiac pacemaker; E03.9 Hypothyroidism, unspecified; I44.2 Atrioventricular block, complete; I10 Essential (primary) hypertension; Z95.2 Presence of prosthetic heart valve; Z79.82 Long term (current) use of aspirin; D68.32 Hemorrhagic disorder due to extrinsic circulating anticoagulants; Z79.890 Hormone replacement therapy; Z95.1 Presence of aortocoronary bypass graft; R97.20 Elevated prostate specific antigen [PSA]; I67.2 Cerebral atherosclerosis; I62.00 Nontraumatic subdural hemorrhage, unspecified

== ENCOUNTER 2022-05-24 01:30 | Inpatient (IN) ==
--- NOTE | 2022-05-24 01:37 | Emergency Department Note ---
History of Present Illness General Chief complaint: Fall Stated complaint: Fall, Altered Mental Status Time Seen by Provider: 05/24/22 01:32 History of Present Illness This 89 year old male presents to the emergency department via EMS for evaluation after a fall. His states that he fell from the toilet and landed between the toilet and the tub. He is not sure how he fell and no one witnessed it. His heard him having difficulty urinating and then heard him fall. He does not remember the fall, but is alert and oriented currently. His is unsure if there is any syncopal episode or loss of consciousness and she was not in the bathroom. The patient does not remember if he passed out or not. He does not remember if he had any chest pain or shortness of breath prior to the episode. He denies any chest pain at this time, but does have mild shortness of breath. He denies any abdominal pain, nausea, or vomiting. He denies any headache, blurry vision, or known changes in his personality. He denies any neck or back pain. He has some pain in the left calf, but denies any pain to the remainder of the extremities. The patient has a pacemaker and does not admit to any known events with his pacemaker recently. He has a history of congenital bicuspid aortic valve status post aortic bioprosthetic valve replacement, CAD status post CABG, aortic root ascending replacement, complete heart block requiring single-chamber pacemaker, chronic A. fib, hypertensive, hypothyroidism, and migraines. He presented to the emergency department in January 2022 after his heard him collapse to the floor, but did not witness him fall. The patient was disoriented and agitated at that time and there was concern for possible right-sided facial droop. CT scan of the head and CTA of the head and neck at that time showed no evidence of acute intracranial bleeding or large vessel occlusion. The patient was admitted and subsequently had an MRI of the brain that showed small bilateral subdural hematomas at the vertex with extension into the falx. He had been on Coumadin at that time, but is not currently on Coumadin as this was stopped by cardiology after the subdural hematomas. Home Medications Medication Instructions Recorded Confirmed Type acetaminophen 500 mg tablet 1,000 mg PO Q6H PRN pain or fever 08/06/18 05/24/22 History aspirin 81 mg chewable tablet 81 mg PO DAILY 08/06/18 05/24/22 History cholecalciferol (vitamin D3) 50 2,000 unit PO HS 08/06/18 05/24/22 History mcg (2,000 unit) capsule (Vitamin D3) levothyroxine 50 mcg tablet 50 mcg PO DAILY 08/06/18 05/24/22 History metoprolol tartrate 25 mg tablet 25 mg PO BID 08/06/18 05/24/22 History magnesium oxide,aspartate,citr 400 mg PO HS 04/02/22 05/24/22 History riboflavin (vitamin B2) 400 mg 400 mg PO DAILY 04/02/22 05/24/22 History tablet rosuvastatin 10 mg tablet 10 mg PO DAILY 05/24/22 05/24/22 History Allergies Allergy/AdvReac Type Severity Reaction Status Date / Time No Known Allergies Allergy Verified 05/24/22 01:58 Past Med/Surg History Medical History Thoracic aneurysm without mention of rupture Surgical History (Updated 05/24/22 @ 09:19 by Candy Monroy PA-C) History of open heart surgery Family History Other Family history non-contributory Social History Smoking Status: Former smoker Second Hand Exposure: No; Hx Alcohol Use: No Hx Substance Use: No Preferred Language: Argentine Communication Ability: Impaired 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 Physical Exam Vital Signs Vital Signs - 24 hr 05/24/22 01:45 05/24/22 02:02 05/24/22 02:30 Temperature 36.5 C Temperature Source Oral Pulse Rate 85 60 62 Pulse Rate from SpO2 Sensor 62 Respiratory Rate 20 19 Respiratory Effort / Characteristics Non-Labored Spontaneous Respiratory Depth Normal Respiratory Pattern Regular Blood Pressure 153/78 H 171/86 H Blood Pressure Mean 103 114 Blood Pressure Position Semi-fowlers Pulse Oximetry 99 98 100 Oxygen Delivery Method Room Air Room Air Room Air Sepsis Recent Fever Within 48 Hours No Sepsis New/Unexplained Change in Mental Status Yes Sepsis Action Taken by Nursing No Action Required 05/24/22 03:40 05/24/22 03:41 05/24/22 03:41 Temperature Temperature Source Pulse Rate 61 61 Pulse Rate from SpO2 Sensor 62 61 Respiratory Rate 17 18 Respiratory Effort / Characteristics Respiratory Depth Respiratory Pattern Blood Pressure 163/75 H Blood Pressure Mean 104 Blood Pressure Position Pulse Oximetry 100 99 Oxygen Delivery Method Sepsis Recent Fever Within 48 Hours Sepsis New/Unexplained Change in Mental Status Sepsis Action Taken by Nursing 05/24/22 04:00 05/24/22 04:00 05/24/22 06:10 Temperature Temperature Source Pulse Rate 63 Pulse Rate from SpO2 Sensor 63 Respiratory Rate 17 Respiratory Effort / Characteristics Respiratory Depth Respiratory Pattern Blood Pressure 187/84 H 157/78 H Blood Pressure Mean 118 104 Blood Pressure Position Pulse Oximetry 100 Oxygen Delivery Method Sepsis Recent Fever Within 48 Hours Sepsis New/Unexplained Change in Mental Status Sepsis Action Taken by Nursing 05/24/22 06:11 05/24/22 06:30 05/24/22 06:30 Temperature Temperature Source Pulse Rate 83 Pulse Rate from SpO2 Sensor 72 Respiratory Rate 15 Respiratory Effort / Characteristics Respiratory Depth Respiratory Pattern Blood Pressure 122/55 L Blood Pressure Mean 77 Blood Pressure Position Pulse Oximetry 98 Oxygen Delivery Method Room Air Sepsis Recent Fever Within 48 Hours Sepsis New/Unexplained Change in Mental Status Sepsis Action Taken by Nursing 05/24/22 07:00 05/24/22 07:00 Temperature Temperature Source Pulse Rate 60 Pulse Rate from SpO2 Sensor Respiratory Rate 16 Respiratory Effort / Characteristics Respiratory Depth Respiratory Pattern Blood Pressure 153/78 H Blood Pressure Mean 103 Blood Pressure Position Pulse Oximetry 97 Oxygen Delivery Method Sepsis Recent Fever Within 48 Hours Sepsis New/Unexplained Change in Mental Status Sepsis Action Taken by Nursing VITALS: Vitals are noted on the nurse's note and reviewed by myself. GENERAL: 89-year-old male, in no acute distress, non-diaphoretic, well-developed well-nourished. SKIN: No obvious lacerations or abrasions. Capillary reflex less than 2 seconds. HEAD: Normocephalic. Scalp is nontender to palpation. No obvious step-offs felt. EARS: External auditory canals clear, tympanic membranes pearly rogers without erythema or effusion bilaterally. No hemotympanum. No frias sign. No mastoid tenderness. EYES: Pupils equal round and reactive to light and accommodation. Conjunctivae without injection, sclerae without icterus. Extraocular movements intact. NOSE: Patent, turbinates without inflammation or discharge. No sinus tenderness. No septal hematoma or bleeding. FACE: No facial bone tenderness. Full range of motion of the jaw without tenderness. No facial droop. MOUTH: Mucous membranes moist. Uvula midline. Airway patent. Tongue does not deviate. NECK: Supple without nuchal rigidity. Cervical spine is nontender. Full range of motion of the neck without tenderness and normal strength. HEART: Regular rate and rhythm without murmurs gallops or rubs. LUNGS: Clear to auscultation bilaterally without wheezes, rales or rhonchi. No retractions or accessory muscle use. No chest wall tenderness. ABDOMEN: Positive bowel sounds x 4. Normal tympanic percussion. Soft, nontender, without masses or organomegaly. No guarding or rebound tenderness. MUSCULOSKELETAL: No tenderness of the thoracic or lumbar spine or paraspinal muscles. The patient has mild left-sided calf tenderness that extends behind the left knee. No erythema, warmth, or cording noted. Negative Homans' sign. No tenderness to palpation of the right calf. No tenderness to palpation of the bony aspects of the bilateral upper or lower extremities. Normal strength for age and equal bilaterally in the upper and lower extremities. Peripheral pulses 2+ and equal. NEURO: Patient was alert and oriented to person place and time. Normal Mini- Mental status exam. Normal sensation to light and sharp touch. Cerebellar function intact. No focal neurological deficits. Course Administered Medications Discontinued Medications Acetaminophen (Acetaminophen 500 Mg Tab) 1,000 mg PO NOW STA Stop: 05/24/22 04:33 Last Admin: 05/24/22 04:39 Dose: 1,000 mg Documented By: Sodium Chloride (Nss) 500 mls @ 125 mls/hr IV .Q4H DENAE Stop: 06/23/22 02:44 Last Admin: 05/24/22 03:39 Dose: 125 mls/hr Documented By: Ceftriaxone Sodium (Rocephin) 2,000 mg in 70 mls @ 140 mls/hr IV NOW STA Stop: 05/24/22 06:40 Last Admin: 05/24/22 06:46 Dose: 140 mls/hr Documented By: Ioversol (Optiray 320 500ml) 125 ml IV ONCE ONE Stop: 05/24/22 03:32 Last Admin: 05/24/22 03:31 Dose: 113 ml Documented By: YANA Medical Decision Making Differential Diagnosis Differential diagnosis includes vasovagal syncope, micturition syncope, CVA, TIA, NV, PE, DVT, pneumonia, acute intracranial etiology, mass, UTI, sepsis, or others. Laboratory Data Attestation: I reviewed the patient's lab results. 05/24/22 01:37 05/24/22 01:37 Lab Results 05/24/22 05/24/22 05/24/22 Range/Units 01:37 01:37 01:37 WBC 11.33 H (4.8-10.8) K/ul RBC 4.24 L (4.63-6.08) M/uL Hgb 12.9 L (14.0-18.0) g/dl Hct 38.1 L (40.1-51.0) % MCV 89.9 (80.0-100.0) fL MCH 30.4 (25.0-34.0) pg MCHC 33.9 (32.0-36.0) g/dL RDW Std Deviation 42.8 (36.4-46.3) fL RDW Coeff of Georgette 13.0 (11.5-14.5) % Plt Count 203 (130-400) K/uL MPV 10.8 (9.4-12.4) fL Immature Gran % (Auto) 0.4 % Neut % (Auto) 84.9 % Lymph % (Auto) 7.9 % [place] % (Auto) 6.4 % Eos % (Auto) 0.1 % Baso % (Auto) 0.3 % Neut # (Auto) 9.62 H (1.4-6.5) K/uL Lymph # (Auto) 0.90 L (1.2-3.4) K/uL [place] # (Auto) 0.72 (0.24-0.82) K/uL Eos # (Auto) 0.01 (0-0.50) K/uL Baso # (Auto) 0.03 (0-0.2) K/uL Immature Gran # (Auto) 0.05 H (0.00-0.02) K/uL PT 11.6 (9.0-12.0) Seconds INR 1.1 (0.9-1.1) APTT 25.7 (21.0-31.0) Seconds PTT Ratio 0.9 D-Dimer 1890 H* (0-500) ug/L FEU Sodium 134 L (136-145) mmol/L Potassium 4.4 (3.5-5.1) mmol/L Chloride 100 (98-107) mmol/L Carbon Dioxide 21 (21-32) mmol/L Anion Gap 13 H (3-11) BUN 26 H (6-23) mg/dl Creatinine 1.32 (0.6-1.4) mg/dl Est Cr Clr Drug Dosing 41.6 ml/min Est GFR ( Amer) 55.0 ml/min Est GFR (Non-Af Amer) 47.5 ml/min BUN/Creatinine Ratio 19.7 (10-20) Glucose 167 H (70-99(Fasting)) mg/dl Calcium 9.8 (8.5-10.1) mg/dl Magnesium 2.2 (1.7-2.4) mg/dl Total Bilirubin 1.0 (0.2-1.0) mg/dl AST 22 (13-39) U/L ALT 16 (7-52) U/L Alkaline Phosphatase 88 (34-104) U/L Troponin I High Sens 13.6 (0-20) pg/ml Total Protein 7.5 (6.0-8.3) gm/dl Albumin 4.3 (3.4-5.0) gm/dl Globulin 3.2 (2.5-4.0) gm/dl Albumin/Globulin Ratio 1.3 (0.9-2) TSH (0.300-4.500) uIu/ml Urine Color Urine Appearance (Clear) Urine pH (4.5-7.5) Ur Specific [place] (1.000-1.030) Urine Protein (Negative) Urine Glucose (UA) (Negative) Urine Ketones (Negative) Urine Blood (Negative) Urine Nitrite (Negative) Urine Bilirubin (Negative) Urine Urobilinogen (Negative) Ur Leukocyte Esterase (Negative) Urine WBC (Auto) (0-5) /hpf Urine RBC (Auto) (0-4) /hpf U Hyaline Cast (Auto) (0-5) /lpf U Epithel Cells (Auto) (0-5) /lpf Urine Bacteria (Auto) (Negative) Urine Yeast SARS-CoV-2, RNA, NAAT (NEGATIVE) 05/24/22 05/24/22 05/24/22 Range/Units 01:37 03:58 04:09 WBC (4.8-10.8) K/ul RBC (4.63-6.08) M/uL Hgb (14.0-18.0) g/dl Hct (40.1-51.0) % MCV (80.0-100.0) fL MCH (25.0-34.0) pg MCHC (32.0-36.0) g/dL RDW Std Deviation (36.4-46.3) fL RDW Coeff of Georgette (11.5-14.5) % Plt Count (130-400) K/uL MPV (9.4-12.4) fL Immature Gran % (Auto) % Neut % (Auto) % Lymph % (Auto) % [place] % (Auto) % Eos % (Auto) % Baso % (Auto) % Neut # (Auto) (1.4-6.5) K/uL Lymph # (Auto) (1.2-3.4) K/uL [place] # (Auto) (0.24-0.82) K/uL Eos # (Auto) (0-0.50) K/uL Baso # (Auto) (0-0.2) K/uL Immature Gran # (Auto) (0.00-0.02) K/uL PT (9.0-12.0) Seconds INR (0.9-1.1) APTT (21.0-31.0) Seconds PTT Ratio D-Dimer (0-500) ug/L FEU Sodium (136-145) mmol/L Potassium (3.5-5.1) mmol/L Chloride (98-107) mmol/L Carbon Dioxide (21-32) mmol/L Anion Gap (3-11) BUN (6-23) mg/dl Creatinine (0.6-1.4) mg/dl Est Cr Clr Drug Dosing ml/min Est GFR ( Amer) ml/min Est GFR (Non-Af Amer) ml/min BUN/Creatinine Ratio (10-20) Glucose (70-99(Fasting)) mg/dl Calcium (8.5-10.1) mg/dl Magnesium (1.7-2.4) mg/dl Total Bilirubin (0.2-1.0) mg/dl AST (13-39) U/L ALT (7-52) U/L Alkaline Phosphatase (34-104) U/L Troponin I High Sens 17.2 (0-20) pg/ml Total Protein (6.0-8.3) gm/dl Albumin (3.4-5.0) gm/dl Globulin (2.5-4.0) gm/dl Albumin/Globulin Ratio (0.9-2) TSH 3.339 (0.300-4.500) uIu/ml Urine Color Dark Yellow Urine Appearance Turbid A (Clear) Urine pH 8.5 H (4.5-7.5) Ur Specific [place] 1.035 H (1.000-1.030) Urine Protein 2+ H (Negative) Urine Glucose (UA) Negative (Negative) Urine Ketones Trace H (Negative) Urine Blood 2+ H (Negative) Urine Nitrite Negative (Negative) Urine Bilirubin Negative (Negative) Urine Urobilinogen Negative (Negative) Ur Leukocyte Esterase 3+ H (Negative) Urine WBC (Auto) >30 H (0-5) /hpf Urine RBC (Auto) 0-4 (0-4) /hpf U Hyaline Cast (Auto) 0 (0-5) /lpf U Epithel Cells (Auto) >30 H (0-5) /lpf Urine Bacteria (Auto) 1+ H (Negative) Urine Yeast Not Reportable SARS-CoV-2, RNA, NAAT (NEGATIVE) 05/24/22 Range/Units 06:49 WBC (4.8-10.8) K/ul RBC (4.63-6.08) M/uL Hgb (14.0-18.0) g/dl Hct (40.1-51.0) % MCV (80.0-100.0) fL MCH (25.0-34.0) pg MCHC (32.0-36.0) g/dL RDW Std Deviation (36.4-46.3) fL RDW Coeff of Georgette (11.5-14.5) % Plt Count (130-400) K/uL MPV (9.4-12.4) fL Immature Gran % (Auto) % Neut % (Auto) % Lymph % (Auto) % [place] % (Auto) % Eos % (Auto) % Baso % (Auto) % Neut # (Auto) (1.4-6.5) K/uL Lymph # (Auto) (1.2-3.4) K/uL [place] # (Auto) (0.24-0.82) K/uL Eos # (Auto) (0-0.50) K/uL Baso # (Auto) (0-0.2) K/uL Immature Gran # (Auto) (0.00-0.02) K/uL PT (9.0-12.0) Seconds INR (0.9-1.1) APTT (21.0-31.0) Seconds PTT Ratio D-Dimer (0-500) ug/L FEU Sodium (136-145) mmol/L Potassium (3.5-5.1) mmol/L Chloride (98-107) mmol/L Carbon Dioxide (21-32) mmol/L Anion Gap (3-11) BUN (6-23) mg/dl Creatinine (0.6-1.4) mg/dl Est Cr Clr Drug Dosing ml/min Est GFR ( Amer) ml/min Est GFR (Non-Af Amer) ml/min BUN/Creatinine Ratio (10-20) Glucose (70-99(Fasting)) mg/dl Calcium (8.5-10.1) mg/dl Magnesium (1.7-2.4) mg/dl Total Bilirubin (0.2-1.0) mg/dl AST (13-39) U/L ALT (7-52) U/L Alkaline Phosphatase (34-104) U/L Troponin I High Sens (0-20) pg/ml Total Protein (6.0-8.3) gm/dl Albumin (3.4-5.0) gm/dl Globulin (2.5-4.0) gm/dl Albumin/Globulin Ratio (0.9-2) TSH (0.300-4.500) uIu/ml Urine Color Urine Appearance (Clear) Urine pH (4.5-7.5) Ur Specific [place] (1.000-1.030) Urine Protein (Negative) Urine Glucose (UA) (Negative) Urine Ketones (Negative) Urine Blood (Negative) Urine Nitrite (Negative) Urine Bilirubin (Negative) Urine Urobilinogen (Negative) Ur Leukocyte Esterase (Negative) Urine WBC (Auto) (0-5) /hpf Urine RBC (Auto) (0-4) /hpf U Hyaline Cast (Auto) (0-5) /lpf U Epithel Cells (Auto) (0-5) /lpf Urine Bacteria (Auto) (Negative) Urine Yeast SARS-CoV-2, RNA, NAAT NEGATIVE (NEGATIVE) Imaging Data My Impression: Chest x-ray was interpreted by myself as negative for acute cardiopulmonary etiology. Radiology report is still pending. Radiologist's Impression: Cervical Spine CT 05/24/22 01:52 CT OF THE CERVICAL SPINE WITHOUT CONTRAST CLINICAL HISTORY: syncope, fall COMPARISON STUDY: CT of the neck February 15, 2022. TECHNIQUE: Helical axial images of the cervical spine were obtained without IV contrast. Sagittal and coronal reconstructions were viewed. Automated exposure control was utilized for the study. A dose lowering technique was utilized adhering to the principles of ALARA. FINDINGS: Alignment of the cervical spine is anatomic. Vertebral body heights are maintained. No acute cervical spine fracture or subluxation is present. There is no prevertebral edema. Facet joints are intact. Severe multilevel degenerative changes are present. IMPRESSION: No acute cervical spine fracture or subluxation. ACT 112: Negative or not required by law. Electronically signed by: Ricardo Chambers M.D. 05/24/2022 8:[address] 05/24/22 01:[address] DOSE: HISTORY: syncope, fall TECHNIQUE: Multiaxial CT images of the head were performed without the use of intravenous contrast. Automated exposure control was utilized for this study. A dose lowering technique was utilized adhering to the principles of ALARA. Comparison: Head CT 02/16/2022. Findings: The paranasal sinuses and mastoid air cells are clear. The calvarium and skull base are intact. There is no mass, hematoma, midline shift, acute infarct. White matter hypodensity is nonspecific but suggestive of microvascular ischemic change. The ventricles and sulci demonstrate mild age-related involutional changes. Impression: No acute intracranial abnormality. ACT 112: Negative or not required by law. Electronically signed by: Agus Lindo M.D. 05/24/2022 7:12 AM Chest X-Ray 05/24/22 01:53 XR chest 1V portable CLINICAL HISTORY: Syncope. COMPARISON STUDY: Chest CT February 15, 2022. FINDINGS: Median sternotomy wires, left subclavian pacer is left atrial appendage are clear device are in place. Cardiomegaly is unchanged. There is no pneumothorax or pleural effusion. Mild left lower lung interstitial thickening is probably chronic. No consolidation. No evidence for pulmonary edema. No change in appearance of the chest. IMPRESSION: No acute cardiopulmonary findings. No change in appearance of the chest. ACT 112: Negative or not required by law. Electronically signed by: Ricardo Chambers M.D. 05/24/2022 7:22 AM Chest CTA 05/24/22 02:33 CHEST CTA for PULMONARY ARTERIES CT DOSE: 378.37 mGy.cm HISTORY: Syncope. Assess for pulmonary embolus. TECHNIQUE: Multiaxial CT images of the chest were performed following the intravenous administration of contrast to evaluate the pulmonary arteries. Maximal intensity projection images were also obtained. A dose lowering technique was utilized adhering to the principles of ALARA. COMPARISON STUDY: Chest CT 02/15/2022. FINDINGS: The visualized liver and spleen are unremarkable. There is left-sided pacemaker noted. No pleural or pericardial effusions. Normal esophagus. A few pr ominent mediastinal and bilateral hilar lymph nodes remain stable. The heart remains enlarged. Stable mild aneurysmal dilatation of the douglas ascending thoracic aorta measuring up to 4.4 cm in diameter. Patient is status post repair of an ascending thoracic aortic aneurysm. Severe calcified plaque within the coronary arteries again noted. Nondiagnostic evaluation of the majority of the bilateral lower lobe subsegmental pulmonary arteries due to the motion artifact. Otherwise, no definite filling defects within the pulmonary arteries to suggest a pulmonary embolus. Redemonstration of the focal area of sclerosis within the right lateral fifth rib. No new osseous lesions identified. There are poststernotomy changes. Focal sclerosis within the upper sternum is also unchanged. No pneumothorax. The central airways are patent. There are few new scattered irregular nodules within the lungs with the largest in the right upper lobe on image 196 measuring 11 mm. Interstitial thickening and patchy densities at the left lung base are again noted. The right lung base air airspace opacities have improved in the interval. IMPRESSION: 1. No evidence for a pulmonary embolus. 2. Cardiomegaly again noted. 3. A few new scattered irregular pulmonary nodules with the largest in the right upper lobe measuring 11 mm. This could represent an infectious/inflammatory process. [address] follow-up recommended to ensure resolution. 4. Focal areas of sclerosis within the right lateral fifth rib and sternum again noted. 5. Additional findings as described above. ACT 112: Positive. There are findings on this exam that require communication between the performing entity and the patient following Patient Test Result Information Act ([place] Act 112) guidelines. Electronically signed by: Agus Lindo M.D. 05/24/2022 7:50 AM Venous Doppler Study 05/24/22 02:33 BILATERAL LOWER EXTREMITY VENOUS DOPPLER CLINICAL HISTORY: elevated D-dimer, calf pain COMPARISON STUDY: Right lower extremity venous Doppler ultrasound October 21, 2018. TECHNIQUE: Sonography of the deep venous system of the bilateral lower extremities was performed. Compression and augmentation were evaluated. FINDINGS: The bilateral common femoral, superficial femoral and popliteal veins were compressible. Augmentation was normal. Flow was shown within the deep calf vessels. IMPRESSION: No evidence of deep venous thrombus within the bilateral lower extremities. ACT 112: Negative or not required by law. Electronically signed by: Ricardo Chambers M.D. 05/24/2022 7:06 AM Preliminary Findings Only See Final Report For Complete Findings CT head without contrast. History: Fell and hit head. Technique: Noncontrast CT acquisition through the head. Axial images only Total DLP 1051.5 mGy-cm. COMPARISON: CT head, 02/16/2022. FINDINGS: No evidence of intracranial hemorrhage. No evidence of intracranial mass or mass-effect. Parenchymal atrophy. Periventricular white matter hypodensity, consistent with sequela of chronic microvascular ischemia. Senescent calcifications of the basal ganglia. Ventricles, sulci, and cisterns are appropriate in size and configuration given degree of volume loss. No evidence of large territorial infarction. Midline structures are within normal limits. Calcific atherosclerosis of the intracranial portions of the internal carotid arteries. Paranasal sinuses are clear. Mastoid air cells and middle ear cavities are clear. No acute osseous abnormality. Soft tissues of the scalp and face are unremarkable. Bilateral lens replacements. IMPRESSION: No acute intracranial findings. Radiologist: Bradley Alcala MD Study ready at 02:24 and initial results transmitted at 05:06 Preliminary Findings Only See Final Report For Complete Findings EXAM: CT C SPINE INDICATION: Fell and hit head. TECHNIQUE: CT acquisition of the cervical spine. Axial, sagittal and coronal ref ormatted images provided. No IV contrast is administered. Total DLP 400.4 mGy- cm. COMPARISON: CT head performed at the same time. FINDINGS: Normal alignment of the craniocervical junction. Normal alignment of the cervical vertebral bodies. Cervical vertebral body heights are preserved. Multilevel disc height loss with associated endplate degenerative changes. Degenerative changes of the atlantoaxial joint. Multilevel uncovertebral/facet arthropathy. No fracture or destructive osseous lesion. Calcific atherosclerosis of the cervical carotid arteries. Lung apices are clear. Imaged intracranial contents are unremarkable. IMPRESSION: 1. No evidence of cervical spine fracture. 2. Severe multilevel degenerative changes of the cervical spine. Radiologist: Bradley Alcala MD Study ready at 02:32 and initial results transmitted at 05:14 Preliminary Findings Only See Final Report For Complete Findings CTA CHEST With Contrast: INDICATION: Evaluate for PE. Chest pain. TECHNIQUE: CT acquisition of the chest following the administration of IV contrast. Axial, sagittal and coronal reformats. MIP reformats. Contrast: 113 mL Optiray 320 intravenous contrast. Total DLP: 378.4 mGy-cm. COMPARISON: CT cervical spine performed at the same time. FINDINGS: Refer to CT cervical spine for findings in the neck. Contrast bolus delivered from the upper extremity. No axillary lymphadenopathy. Timing of contrast bolus adequate for evaluation of pulmonary embolus to the level of the segmental pulmonary arteries. No pulmonary arterial filling defect identified. Cardiomegaly. Biatrial enlargement. No pericardial effusion. Severe three-vessel coronary artery calcifications. Aortic valve prosthesis. Postsurgical changes from median sternotomy. No mediastinal or hilar lymphadenopathy. Calcific atherosclerosis of the thoracic aorta and its branches. No pneumothorax or pleural effusion. No endobronchial filling defect. Evaluation of the lung parenchyma is somewhat limited due to respiratory motion. No consolidation. Ill-defined pulmonary nodule in the right upper lobe (axial image #79), measuring 10 mm. Image structures of the upper abdomen are within normal limits. No acute osseous abnormality. Costochondral calcifications. Multilevel degenerative changes of the spine IMPRESSION: 1. No evidence of pulmonary embolus. 2. Ill-defined pulmonary nodule in the right upper lobe, as above, with evalua tion limited by respiratory motion artifact. Recommend repeat chest CT once the patient is stable. Size of nodule will determine follow-up recommendations. 3. Chronic findings detailed above. Radiologist: Bradley Alcala MD Study ready at 03:53 and initial results transmitted at 05:22 Preliminary Findings Only See Final Report For Complete Findings EXAM: US VENOUS BILATERAL LOWER EXTREMITIES: HISTORY: Elevated d-dimer. COMPARISON: None. TECHNIQUE: Superficial ultrasound of the deep venous structures of the bilateral lower extremities using grayscale, color Doppler, and spectral Doppler. FINDINGS: The common femoral vein, femoral vein, and popliteal vein of both lower extremities are patent and compressible. Normal respiratory phasicity and augmentation response. Imaged veins of the calves are patent. IMPRESSION: No evidence of DVT in the bilateral lower extremities. Radiologist: Bradley Alcala MD Study ready at 06:07 and initial results transmitted at 06:41 MDM Narrative I examined the patient. An IV lock was placed and labs are drawn. He was given normal saline solution at 125 mL/h with max 500 mL. He was given Tylenol 1000 mg p.o. for pain. Continuous vehicle monitor technician: Order was placed for continuous vehicle monitor technician. Patient was placed on the vehicle monitor technician and continuous pulse ox. Patient was noted to be in a paced rhythm at an initial rate of 78 bpm per my interpretation. EKG was interpreted by myself and showed a ventricular paced rhythm at 80 bpm with no obvious acute ST or T wave changes. White blood cell count is elevated 11.33. Hemoglobin low at 12.9 which appears relatively stable. Coags normal. Sodium 134, BUN 26, glucose 167, but CMP otherwise unremarkable. TSH normal at 3.339. D-dimer is elevated at 1890. Troponin x2 were normal. COVID-negative. Upon arrival the patient had around 200 mL of urine on bladder scan, but he was having difficulty completely evacuating his urine while in the emergency department. Repeat bladder scan showed that his urinary retention increased to over 400 mL despite urinating multiple times in the emergency department. Therefore, a Brandon catheter was placed to assist with urine output. Urinalysis was concerning for UTI. He was given Rocephin 2 g IV. Chest x-ray was interpreted by myself as negative for acute cardiopulmonary etiology. Radiology report is still pending. CT scan of the head and cervical spine was reviewed by myself and read by stat rad as above and were negative for acute intracranial etiology, fracture, or subluxation. CTA of the chest was reviewed by myself and read by stat rad as negative for PE, but does show an ill-defined pulmonary nodule in the right upper lobe with repeat CT scan once th e patient is stable recommended. Bilateral venous Doppler was negative for DVT. I interrogated the patient's pacemaker and spoke with [employer]. They stated that there were no capturing events on the device, but the device is only set to capture at greater than 167 bpm. He also stated that everything looked good with the device. I reviewed the patient's medical records from his admission in February 2022 for a similar unwitnessed fall heard by his as summarized above. The patient was independently evaluated by Dr. Pastor, who agreed with my assessment and treatment plan. We feel the patient requires admission for further evaluation and treatment given this is his second unprovoked fall and possible syncopal episode with a significant cardiac history and history of subdural hematomas that were not seen on CT scan, but were seen on MRI. I spoke with the on-call hospitalist who agreed to admit the patient for further evaluation. Please refer to his dictation for further details. The patient's care was transferred in stable condition. Impression & Plan Unwitnessed fall, Pacemaker, History of subdural hematoma, History of open heart surgery, Elevated d-dimer, SOB (shortness of breath), Acute UTI Discharge Plan Visit Data Chief Complaint: Fall Stated Complaint: Fall, Altered Mental Status ED Provider: Michelle Pastor ED Midlevel Provider: Candy oMnroy. Discharge Problem: Unwitnessed fall, Pacemaker, History of subdural hematoma, History of open heart surgery, Elevated d-dimer, SOB (shortness of breath), Acute UTI Patient Disposition: Admitted As Inpatient Condition: Good Discharge Instructions Interventions: ED Discharge Assessment Last Done: 05/24/22 08:14
[2022-05-24 02:05] LABS: Basophils # (auto) 0.03 K/uL (0-0.2); Basophils % (auto) 0.3 %; Eosinophils # (auto) 0.01 K/uL (0-0.50); Eosinophils % (auto) 0.1 %; Hematocrit (blood only) 38.1 % (40.1-51.0); Hemoglobin 12.9 g/dl (14.0-18.0); Immature Granulocytes # (auto) 0.05 K/uL (0.00-0.02); Immature Granulocytes % (auto) 0.4 %; Lymphocytes % (auto) 7.9 %; Mean Corpuscular Hemoglobin 30.4 pg (25.0-34.0); Mean Corpuscular Hgb Conc 33.9 g/dL (32.0-36.0); Mean Corpuscular Volume 89.9 fL (80.0-100.0); Mean Platelet Volume 10.8 fL (9.4-12.4); Monocytes # (auto) 0.72 K/uL (0.24-0.82); Monocytes % (auto) 6.4 %; Neutrophils # (auto) 9.62 K/uL (1.4-6.5); Neutrophils % (auto) 84.9 %; Platelet Count 203 K/uL (130-400); RDW Standard Deviation 42.8 fL (36.4-46.3); Red Blood Count 4.24 M/uL (4.63-6.08); White Blood Count 11.33 K/ul (4.8-10.8)
[2022-05-24 02:21] LABS: INR 1.1 (0.9-1.1); Partial Thromboplastin Ratio 0.9; Partial Thromboplastin Time 25.7 Seconds (21.0-31.0); Prothrombin Time 11.6 Seconds (9.0-12.0)
[2022-05-24 02:25] LABS: D Dimer 1890 ug/L FEU (0-500)
[2022-05-24 02:28] LABS: Albumin Globulin Ratio 1.3 (0.9-2); Albumin Level 4.3 gm/dl (3.4-5.0); BUN Creatinine Ratio 19.7 (10-20); Calcium 9.8 mg/dl (8.5-10.1); Creatinine Clr Calc Pharmacy 41.6 ml/min; Est GFR (Non-African American) 47.5 ml/min; Globulin 3.2 gm/dl (2.5-4.0); Magnesium 2.2 mg/dl (1.7-2.4); Potassium 4.4 mmol/L (3.5-5.1); Total Protein 7.5 gm/dl (6.0-8.3)
[2022-05-24 02:29] LABS: Troponin I High Sensitivity 13.6 pg/ml (0-20)
[2022-05-24] MEDS ORDERED: OPTIRAY 320 500ml IV ONE (03:31)
[2022-05-24] MEDS: SODIUM CHLORIDE 0.9% 500 ML IV SCH ×2 (03:39→09:23)
[2022-05-24 04:32] LABS: Appearance Urine Turbid (Clear); Bacteria Urine Automated 1+ (Negative); Bilirubin Urine Negative (Negative); Blood Urine 2+ (Negative); Color Urine Dark Yellow; Epithelial Cell Urine Auto >30 /lpf (0-5); Glucose Urine UA Negative (Negative); Ketones Urine Trace (Negative); Leukocyte Esterase Urine 3+ (Negative); Nitrite Urine Negative (Negative); RBC Urine Automated 0-4 /hpf (0-4); Specific Gravity Urine 1.035 (1.000-1.030); Urobilinogen Urine Negative (Negative); WBC Urine Automated >30 /hpf (0-5); pH Urine 8.5 (4.5-7.5)
[2022-05-24] MEDS ORDERED: ACETAMINOPHEN 500 MG TAB PO STA (04:32)
--- NOTE | 2022-05-24 04:37 | Emergency Department Note ---
ED Visit Note I was consulted by the Advanced Practice Provider. I saw the patient personally and performed a substantive portion of the visit. This includes aspects of the HPI, MDM, diagnostic interpretations, and disposition/plan. .
[2022-05-24 04:40] LABS: Protein Urine 2+ (Negative)
[2022-05-24 04:56] LABS: Cast Urine Automated 0 /lpf (0-5)
[2022-05-24] MEDS ORDERED: cefTRIAXone SODIUM 2,000 MG/70 ML BAG IV STA (06:11)
--- NOTE | 2022-05-24 07:08 | Ultrasound Report ---
BILATERAL LOWER EXTREMITY VENOUS DOPPLER CLINICAL HISTORY: elevated D-dimer, calf pain COMPARISON STUDY: Right lower extremity venous Doppler ultrasound October 21, 2018. TECHNIQUE: Sonography of the deep venous system of the bilateral lower extremities was performed. Co mpression and augmentation were evaluated. FINDINGS: The bilateral common femoral, superficial femoral and popliteal veins were compressible. A ugmentation was normal. Flow was shown within the deep calf vessels. IMPRESSION: No evidence of deep venous thrombus within the bilateral lower extremities. ACT 112: Negative or not required by law. Electronically signed by: Ricardo Chambers M.D. 05/24/2022 7:06 AM
--- NOTE | 2022-05-24 07:13 | CT Scan Report ---
HEAD CT NONCONTRAST CT DOSE: HISTORY: syncope, fall TECHNIQUE: Multiaxial CT images of the head were performed without the use of intravenous contrast. A utomated exposure control was utilized for this study. A dose lowering technique was utilized adheri ng to the principles of ALARA. Comparison: Head CT 02/16/2022. Findings: The paranasal sinuses and mastoid air cells are clear. The calvarium and skull base are int act. There is no mass, hematoma, midline shift, acute infarct. White matter hypodensity is nonspecifi c but suggestive of microvascular ischemic change. The ventricles and sulci demonstrate mild age-rela tj involutional changes. Impression: No acute intracranial abnormality. ACT 112: Negative or not required by law. Electronically signed by: Agus Lindo M.D. 05/24/2022 7:12 AM
--- NOTE | 2022-05-24 07:23 | XRay Report ---
XR chest 1V portable CLINICAL HISTORY: Syncope. COMPARISON STUDY: Chest CT February 15, 2022. FINDINGS: Median sternotomy wires, left subclavian pacer is left atrial appendage are clear device ar e in place. Cardiomegaly is unchanged. There is no pneumothorax or pleural effusion. Mild left lower lung interstitial thickening is probably chronic. No consolidation. No evidence for pulmonary edema. No change in appearance of the chest. IMPRESSION: No acute cardiopulmonary findings. No change in appearance of the chest. ACT 112: Negative or not required by law. Electronically signed by: Ricardo Chambers M.D. 05/24/2022 7:22 AM
--- NOTE | 2022-05-24 07:51 | CT Scan Report ---
CHEST CTA for PULMONARY ARTERIES CT DOSE: 378.37 mGy.cm HISTORY: Syncope. Assess for pulmonary embolus. TECHNIQUE: Multiaxial CT images of the chest were performed following the intravenous administration of contrast to evaluate the pulmonary arteries. Maximal intensity projection images were also obtaine d. A dose lowering technique was utilized adhering to the principles of ALARA. COMPARISON STUDY: Chest CT 02/15/2022. FINDINGS: The visualized liver and spleen are unremarkable. There is left-sided pacemaker noted. No p leural or pericardial effusions. Normal esophagus. A few prominent mediastinal and bilateral hilar ly mph nodes remain stable. The heart remains enlarged. Stable mild aneurysmal dilatation of the [place] ascending thoracic aorta measuring up to 4.4 cm in diameter. Patient is status post repair of an asce nding thoracic aortic aneurysm. Severe calcified plaque within the coronary arteries again noted. Non diagnostic evaluation of the majority of the bilateral lower lobe subsegmental pulmonary arteries due to the motion artifact. Otherwise, no definite filling defects within the pulmonary arteries to sugg est a pulmonary embolus. Redemonstration of the focal area of sclerosis within the right lateral fift h rib. No new osseous lesions identified. There are poststernotomy changes. Focal sclerosis within th e upper sternum is also unchanged. No pneumothorax. The central airways are patent. There are few new scattered irregular nodules within the lungs with the largest in the right upper lobe on image 196 m easuring 11 mm. Interstitial thickening and patchy densities at the left lung base are again noted. T he right lung base air airspace opacities have improved in the interval. IMPRESSION: 1. No evidence for a pulmonary embolus. 2. Cardiomegaly again noted. 3. A few new scattered irregular pulmonary nodules with the largest in the right upper lobe measuring 11 mm. This could represent an infectious/inflammatory process. [address] follow-up recommend ed to ensure resolution. 4. Focal areas of sclerosis within the right lateral fifth rib and sternum again noted. 5. Additional findings as described above. ACT 112: Positive. There are findings on this exam that require communication between the performing entity and the patient following Patient Test Result Information Act ([place] Act 112) guidelines. Electronically signed by: Agus Lindo M.D. 05/24/2022 7:50 AM
[2022-05-24] MEDS ORDERED: SODIUM CHLORIDE 0.9% 1000ML 1,000 ML IV SCH (08:13)
[2022-05-24] MEDS ORDERED: NITROGLYCERIN SL 0.4 MG/TAB TAB SL PRN (08:13)
[2022-05-24] MEDS ORDERED: ACETAMINOPHEN 325 MG TAB PO PRN (08:13)
[2022-05-24] MEDS ORDERED: POLYETHYLENE (MIRALAX) 17 GM PACK PO PRN (08:13)
--- NOTE | 2022-05-24 08:49 | CT Scan Report ---
CT OF THE CERVICAL SPINE WITHOUT CONTRAST CLINICAL HISTORY: syncope, fall COMPARISON STUDY: CT of the neck February 15, 2022. TECHNIQUE: Helical axial images of the cervical spine were obtained without IV contrast. Sagittal a nd coronal reconstructions were viewed. Automated exposure control was utilized for the study. A do se lowering technique was utilized adhering to the principles of ALARA. FINDINGS: Alignment of the cervical spine is anatomic. Vertebral body heights are maintained. No acut e cervical spine fracture or subluxation is present. There is no prevertebral edema. Facet joints are intact. Severe multilevel degenerative changes are present. IMPRESSION: No acute cervical spine fracture or subluxation. ACT 112: Negative or not required by law. Electronically signed by: Ricardo Chambers M.D. 05/24/2022 8:47 AM
[2022-05-24] MEDS ORDERED: NON-FORMULARY MEDICATION (Riboflavin (Vitamin B2) 400 mg tablet) PO SCH (09:00)
--- NOTE | 2022-05-24 09:01 | History and Physical Report ---
DATE OF ADMISSION: 05/24/2022. CHIEF COMPLAINT: Near syncope, UTI. 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 The patient was admitted in the hospital on 02/15/2022 with altered mental status, agitation and fall; during that hospitalization, he was found to have spontaneous subdural hematomas while on Coumadin. His Coumadin was stopped at discharge. Aspirin was restarted for his cardiac disease and recommended followup MRI scan and had MRI scan on 04/04/2022 and the hematoma was resolved. As per Cardiology also he had redo surgery for his aortic valve in 2018 with bioprosthetic aortic valve and repair of aortic aneurysm ,the patient also had a left atrial appendage clip at the time of his open heart surgery and there was no need for further anticoagulation as per Cardiology during last admission. The patient's says he was doing fine yesterday. He drove his car, ate his 3 meals, but he seemed weak. He used walker yesterday, which he did not use for the last 2 months.Last night he woke up and he went to bathroom and he was trying to micturate, since he was not able to micturate and was breathing heavily, his called him out and he said he is doing okay, but he was still doing the same thing and he was not able to micturate and went in to check on him. He was standing beside the commode and wall in the corner and seemed little irritated, a little confused. It lasted for some time until they came to the ER. Currently, his mental status is back to baseline. In the ER, CT of the head, preliminary report, no acute findings. Di dimer was elevated and in the ER CT chest was done preliminary report no PE. Currently, resting comfortably and hemodynamically stable. He was afebrile, not feeling hot or cold, no chest pain. Earlier he was short of breath, but his breathing is okay now. No headache, no blurred visions, no earache, no runny nose, no sore throat, no cough, no nausea, no abdominal pain. Normal bowel movements, no blood in the urine. No burning micturition. ALLERGIES: No known drug allergies. PAST MEDICAL HISTORY: As mentioned above. PAST SURGICAL HISTORY: Ascending aorta aneurysm graft with bypass, cardioversion, left atrial appendage clip performed in 2018, colonoscopy with biopsy, pacemaker placement, punch needle biopsy of the prostate, replacement of the aortic valve bioprosthetic valve. MEDICATIONS: Tylenol 1000 mg p.o. q. 6 hours p.r.n., aspirin 81 mg p.o. daily, vitamin D 2000 units p.o. at bedtime, levothyroxine 50 mcg p.o. daily, magnesium oxide 400 mg p.o. at bedtime, metoprolol tartrate 25 mg p.o. b.i.d., vitamin B2 400 mg p.o. daily, atorvastatin 10 mg p.o. daily. FAMILY HISTORY: Significant for father had lung cancer, asbestosis. Sister has skin cancer. SOCIAL HISTORY: , lives with his . Quit smoking in 1969. Alcohol, rarely. No drug use. REVIEW OF SYSTEMS: As per HPI. Rest of the review of systems is negative. PHYSICAL EXAMINATION: GENERAL: The patient is of moderate build, not in acute distress. VITAL SIGNS: Temperature 36.5, pulse 83, respiratory 15, blood pressure 122/55, oxygen 98% on room air. HEENT: Pupils equal, round and reactive to light. Oral mucosa moist. NECK: No JVD, no neck masses, no carotid bruits. CARDIOVASCULAR: S1 and S2 heard, regular rate and rhythm. Murmur in aortic area heard. RESPIRATORY SYSTEM: Normal AP diameter. No accessory muscle use. No wheezing, no crackles. ABDOMEN: Soft, bowel sounds present, nontender, no distention. CENTRAL NERVOUS SYSTEM: Alert and oriented, somewhat hard of hearing. No facial droop. Insight is okay. Power 5/5 in all extremities. EXTREMITIES: No edema, no erythema seen. LABORATORY DATA: WBC 11.3, hemoglobin 12.9, hematocrit 38.1, platelets 203. PT 11.6, INR 1.1, APTT 25.7. D-dimer 1890. Sodium 134, potassium 4.4, chloride 100, bicarbonate 21, BUN 26, creatinine 1.32, serum glucose 167, calcium 9.8, magnesium 2.2, total bilirubin 1, AST 22, ALT 16, alkaline phosphatase 88. Troponin I high sensitivity 17.2. TSH 3.3. Urinalysis, +3 leukocyte esterase, +1 bacteria. SARS-CoV-2 rapid test pending. IMAGING DATA: Venous Doppler, no DVT within the bilateral lower extremities. CTA chest, no PE on the preliminary report. Chest x-ray, no acute findings. CT of the head, preliminary report no acute findings. Cervical spine CT on the preliminary report, no acute findings. EKG: Ventricular paced rhythm, rate of 80. ASSESSMENT AND PLAN: This is an 89-year-old male who presents with near syncope. 1. Near syncope. Currently, we will monitor in tele floor. We will check orthostatics. Gentle fluids. We will get an echocardiogram, serial cardiac enzymes, possible urinary tract infection contributing. Consult Cardiology. 2. Recent history of subdural hemorrhage. Follow up with the MRI scan resolved.. Today CT scan is unremarkable, but because of the recent history, we will repeat CT scan again later in the day. Patient is on aspirin, which will be continued for now. 3. Urinary tract infection. Starting on Rocephin. Follow the cultures. 4. Elevated D-dimer. CTA chest unremarkable. Follow the reports of final imaging studies. 5. History of atrial fibrillation. Coumadin was stopped last admission because of fall and subdural hemorrhage and also the patient has atrial appendage clip, rate controlled with metoprolol. 6. History of complete heart block, status post pacemaker. 7. Hyperlipidemia, on statin. 8. History of benign prostatic hypertrophy. Currently the patient is having difficulty with micturition, not on any medication. We will consult Urology while patient is in hospital. 9. Status post bioprosthetic aortic valve replacement, 10. history of coronary artery disease, status post CABG. On metoprolol and statin. On aspirin. 11. Hypertension. On metoprolol for now, we will monitor the blood pressure. 12. Hypothyroidism, Synthroid. 13. Deep venous thrombosis prophylaxis: We will place on sequential compression devices for now. DISPOSITION: Closely monitor in the tele floor. Level 1 full code. PT/OT prior to discharge. Social service to help with discharge planning. Job ID: [id number] [id number]
--- NOTE | 2022-05-24 09:34 | Cardiology Consultation ---
Date of Consultation May 24, 2022 Assessment & Plan (1) Unwitnessed fall: (2) History of subdural hematoma: (3) S/P AVR (aortic valve replacement): (4) S/P aortic aneurysm repair: (5) Pacemaker: (6) Atrial fibrillation: Plan 89-year-old male who suffered a fall/syncopal event while straining a bowel movement this morning. Found with altered mental status wedged between toilet and bathtub Now returned to general normal mentation per report Initial evaluations unrevealing Echocardiogram pending Suspicious for vagal event however with complex history. Will review echocardiogram, trend troponins maintain telemetry and usual medications Will follow in hospital History of Present Illness Reason for Consultation: Syncopal event Requesting Physician: Dr. Nicole Attending Physician: Natasha Nicole MD History of Present Illness Patient is an 89-year-old male with ongoing cardiac issues which include 1. Congenitally bicuspid aortic valve 2. Severe aortic valve stenosis status post aortic valve replacement in 1995 with a #27 Cazares-Medtronic tilting mechanical prosthesis 3. 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 4. Status post June 12, 2017 redo sternotomy, aortic root and ascending aortic replacement with a bioprosthetic valve conduit 25 mm Magna valve, 30 mm 5. Coronary artery bypass grafting of the proximal RCA with a reverse saphenous vein graft, and AtriCure clipping of the left atrial appendage 6. Chronic atrial fibrillation and a left bundle branch block 7. Complete heart block requiring permanent single chamber pacemaker implantation on 06/18/2017 (Medtronic Advisa SR MRI [id number], SN: [id number], RV lead: Medtronic CapSureFix Novus MRI, SN:[id number] 8. Subdural hematoma spontaneous versus traumatic 02/15/2022 Patient presents now noting having been doing relatively well but difficulties with urinary and stool retention. This morning was in the bathroom straining to have a bowel movement and lost consciousness was found trapped between the toilet and tub. Currently denies acute complaints no chest pains, tachypalpitations, dizziness or lightheadedness. No recent fevers or chills. Constipation and urinary retention has been an issue. Blood pressures have been generally controlled Prior headaches have resolved and CT this admission demonstrates no recurrence of subdural hematoma EKG reveals paced rhythm with chronic atrial fibrillation telemetry 1 brief run of wide-complex tachycardia. Chest CT and venous duplex without thrombotic changes Allergies Allergy/AdvReac Type Severity Reaction Status Date / Time No Known Allergies Allergy Verified 05/24/22 01:58 Home Medications Medication Instructions Recorded Confirmed Type acetaminophen 500 mg tablet 1,000 mg PO Q6H PRN pain or fever 08/06/18 05/24/22 History aspirin 81 mg chewable tablet 81 mg PO DAILY 08/06/18 05/24/22 History cholecalciferol (vitamin D3) 50 2,000 unit PO HS 08/06/18 05/24/22 History mcg (2,000 unit) capsule (Vitamin D3) levothyroxine 50 mcg tablet 50 mcg PO DAILY 08/06/18 05/24/22 History metoprolol tartrate 25 mg tablet 25 mg PO BID 08/06/18 05/24/22 History magnesium oxide,aspartate,citr 400 mg PO HS 04/02/22 05/24/22 History riboflavin (vitamin B2) 400 mg 400 mg PO DAILY 04/02/22 05/24/22 History tablet rosuvastatin 10 mg tablet 10 mg PO DAILY 05/24/22 05/24/22 History Patient History Medical History Altered mental state Seizure-like activity Subdural hematoma, nontraumatic Thoracic aneurysm without mention of rupture Surgical History History of open heart surgery Family History Other Family history non-contributory Social History Smoking Status: Former smoker Second Hand Exposure: No; Hx Alcohol Use: No Hx Substance Use: No Preferred Language: Faroese Communication Ability: Impaired Sports Editor Required: No Beliefs That Will Affect Care: None Current Living Situation: Family Feels Safe at Home: Yes Assistive Devices: None Review of Systems Review of Systems: All systems reviewed & are unremarkable except as noted in HPI & below Physical Exam Constitutional: well developed and well nourished; no acute distress Eyes: PERRL, conjunctivae normal, anicteric sclerae ENMT: external ear and nose normal, oropharynx normal Neck: trachea midline, no thyromegaly Respiratory: normal respiratory effort, lungs clear to auscultation Cardiovascular: Rate/Rhythm: regular rhythm (Paced) Heart Sounds: normal S1, normal S2 and + murmur (Grade 1-2 systolic no diastolic) Palpation: normal PMI Vessels: no JVD Extremities: no edema Chest (Breasts): Chest: + pacemaker Gastrointestinal (Abdomen): normal bowel sounds, soft, nontender, no hepatosplenomegaly Musculoskeletal: no cyanosis or clubbing, extremities motor strength 5/5 Skin: no rashes, warm and dry Neurologic: patellar DTR's 2+ bilat, sensation intact Mild confusion initially Results & Data ([facility]) Vital Signs (Past 12 Hours) Vital Signs Temp Pulse Resp BP Pulse Ox O2 Del Method 05/24/22 08:00 62 17 05/24/22 08:00 176/79 H 05/24/22 07:30 60 17 05/24/22 07:30 158/73 H 05/24/22 07:00 60 16 97 05/24/22 07:00 153/78 H 05/24/22 06:30 83 15 05/24/22 06:30 122/55 L 05/24/22 06:11 98 Room Air 05/24/22 06:10 157/78 H 05/24/22 04:00 63 17 100 05/24/22 04:00 187/84 H 05/24/22 03:41 163/75 H 05/24/22 03:41 61 18 99 05/24/22 03:40 61 17 100 05/24/22 02:30 62 19 171/86 H 100 Room Air 05/24/22 02:02 60 98 Room Air 05/24/22 01:45 36.5 C 85 20 153/78 H 99 Room Air Laboratory Results Laboratory Results - last 24 hr 05/24/22 05/24/22 05/24/22 01:37 01:37 01:37 WBC 11.33 H RBC 4.24 L Hgb 12.9 L Hct 38.1 L MCV 89.9 MCH 30.4 MCHC 33.9 RDW Std Deviation 42.8 RDW Coeff of Georgette 13.0 Plt Count 203 MPV 10.8 Immature Gran % (Auto) 0.4 Neut % (Auto) 84.9 Lymph % (Auto) 7.9 [place] % (Auto) 6.4 Eos % (Auto) 0.1 Baso % (Auto) 0.3 Neut # (Auto) 9.62 H Lymph # (Auto) 0.90 L [place] # (Auto) 0.72 Eos # (Auto) 0.01 Baso # (Auto) 0.03 Immature Gran # (Auto) 0.05 H PT 11.6 INR 1.1 APTT 25.7 PTT Ratio 0.9 D-Dimer 1890 H* Sodium 134 L Potassium 4.4 Chloride 100 Carbon Dioxide 21 Anion Gap 13 H BUN 26 H Creatinine 1.32 Est Cr Clr Drug Dosing 41.6 Est GFR ( Amer) 55.0 Est GFR (Non-Af Amer) 47.5 BUN/Creatinine Ratio 19.7 Glucose 167 H Calcium 9.8 Magnesium 2.2 Total Bilirubin 1.0 AST 22 ALT 16 Alkaline Phosphatase 88 Troponin I High Sens 13.6 Total Protein 7.5 Albumin 4.3 Globulin 3.2 Albumin/Globulin Ratio 1.3 Prostate Specific Ag TSH Urine Color Urine Appearance Urine pH Ur Specific [place] Urine Protein Urine Glucose (UA) Urine Ketones Urine Blood Urine Nitrite Urine Bilirubin Urine Urobilinogen Ur Leukocyte Esterase Urine WBC (Auto) Urine RBC (Auto) U Hyaline Cast (Auto) U Epithel Cells (Auto) Urine Bacteria (Auto) Urine Yeast SARS-CoV-2, RNA, NAAT 05/24/22 05/24/22 05/24/22 01:37 01:37 03:58 WBC RBC Hgb Hct MCV MCH MCHC RDW Std Deviation RDW Coeff of Georgette Plt Count MPV Immature Gran % (Auto) Neut % (Auto) Lymph % (Auto) [place] % (Auto) Eos % (Auto) Baso % (Auto) Neut # (Auto) Lymph # (Auto) [place] # (Auto) Eos # (Auto) Baso # (Auto) Immature Gran # (Auto) PT INR APTT PTT Ratio D-Dimer Sodium Potassium Chloride Carbon Dioxide Anion Gap BUN Creatinine Est Cr Clr Drug Dosing Est GFR ( Amer) Est GFR (Non-Af Amer) BUN/Creatinine Ratio Glucose Calcium Magnesium Total Bilirubin AST ALT Alkaline Phosphatase Troponin I High Sens Total Protein Albumin Globulin Albumin/Globulin Ratio Prostate Specific Ag Pending TSH 3.339 Urine Color Dark Yellow Urine Appearance Turbid A Urine pH 8.5 H Ur Specific [place] 1.035 H Urine Protein 2+ H Urine Glucose (UA) Negative Urine Ketones Trace H Urine Blood 2+ H Urine Nitrite Negative Urine Bilirubin Negative Urine Urobilinogen Negative Ur Leukocyte Esterase 3+ H Urine WBC (Auto) >30 H Urine RBC (Auto) 0-4 U Hyaline Cast (Auto) 0 U Epithel Cells (Auto) >30 H Urine Bacteria (Auto) 1+ H Urine Yeast Not Reportable SARS-CoV-2, RNA, NAAT 05/24/22 05/24/22 05/24/22 04:09 06:49 08:31 WBC RBC Hgb Hct MCV MCH MCHC RDW Std Deviation RDW Coeff of Georgette Plt Count MPV Immature Gran % (Auto) Neut % (Auto) Lymph % (Auto) [place] % (Auto) Eos % (Auto) Baso % (Auto) Neut # (Auto) Lymph # (Auto) [place] # (Auto) Eos # (Auto) Baso # (Auto) Immature Gran # (Auto) PT INR APTT PTT Ratio D-Dimer Sodium Potassium Chloride Carbon Dioxide Anion Gap BUN Creatinine Est Cr Clr Drug Dosing Est GFR ( Amer) Est GFR (Non-Af Amer) BUN/Creatinine Ratio Glucose Calcium Magnesium Total Bilirubin AST ALT Alkaline Phosphatase Troponin I High Sens 17.2 31.2 H D Total Protein Albumin Globulin Albumin/Globulin Ratio Prostate Specific Ag TSH Urine Color Urine Appearance Urine pH Ur Specific [place] Urine Protein Urine Glucose (UA) Urine Ketones Urine Blood Urine Nitrite Urine Bilirubin Urine Urobilinogen Ur Leukocyte Esterase Urine WBC (Auto) Urine RBC (Auto) U Hyaline Cast (Auto) U Epithel Cells (Auto) Urine Bacteria (Auto) Urine Yeast SARS-CoV-2, RNA, NAAT NEGATIVE
[2022-05-24] MEDS ORDERED: OPTIRAY 350 100ml IV ONE (09:43)
[2022-05-24] MEDS: ROSUVASTATIN CALCIUM 10 MG TAB PO SCH (10:15)
[2022-05-24] MEDS: ASPIRIN 81 MG CHEW PO SCH (10:15)
[2022-05-24] MEDS: METOPROLOL TARTRATE 25 MG TAB PO SCH ×2 (10:24→20:00)
--- NOTE | 2022-05-24 10:59 | CT Scan Report ---
ABDOMEN AND PELVIS CT WITH AND WITHOUT IV CONTRAST, UROGRAM PROTOCOL CT DOSE: 924.89 mGy.cm HISTORY: Fall, retention, prostate cancer TECHNIQUE: Multiaxial CT images of the abdomen and pelvis were performed both before and after the us e of intravenous contrast to evaluate the urinary system. Maximal intensity projection images were pe rformed at the workstation by the radiologist. A dose lowering technique was utilized adhering to e principles of ALARA. COMPARISON STUDY: Abdomen and pelvis CT 02/15/2022. FINDINGS: There is contrast within the renal collecting systems from the same day chest CTA. Therefor e evaluation for renal/ureteral calculi as significantly limited. Possible punctate stone within the right kidney on image 186. 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 The ureters are on ly partially opacified which results in difficult evaluation of the ureters. The bilateral duplicated ureters may join distally. No hydronephrosis. No suspicious filling defects seen within the opacifi ed bilateral renal collecting systems, ureters, or bladder. Moderate diffuse bladder wall thickening. The bladder is decompressed by a Brandon catheter. The prostate gland is enlarged measuring 7.3 cm. The lung bases are better appreciated on the same day chest CTA. Pacemaker wire is noted. No pneumope ritoneum. No pneumatosis. Patchy sclerotic foci seen within the pelvic bones with the largest within the right iliac bone on image 336 measuring 8.6 cm. This likely represents osteoblastic metastatic di sease. Tiny fat-containing umbilical hernia. There are 2 hypodense lesions within the left hepatic lo be with the largest measuring 1.3 cm. These favor cysts. The gallbladder, adrenal glands, and pancrea s are within normal limits. A 1 cm hypodense lesion within the left kidney and a few subcentimeter hy podense lesions within the right kidney. These favor cysts. Calcified plaque within the normal calibe r abdominal aorta. Vicarious excretion of contrast noted within the gallbladder. There are 2 enlarged left external iliac lymph nodes measuring 1.8 and 1.3 cm in size. This likely represents metastatic disease. Moderate well-formed stool within the colon. No bowel wall thickening or obstruction. Normal appendix. IMPRESSION: 1. Near nondiagnostic evaluation for renal/ureteral calculi given the contrast within the urinary sys tem from the previous chest CTA. Probable punctate nonobstructing stone within the right kidney. No h ydronephrosis. 2. No suspicious filling defects seen within the opacified bilateral renal collecting systems, ureter s, or bladder. 3. Duplicated bilateral renal collecting systems. 4. 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 5. Left internal iliac lymphadenopathy also likely representing metastatic disease. 6. Prostatomegaly. 7. Moderate diffuse thickening of the bladder wall which is decompressed by Brandon catheter. 8. Additional findings as described above. ACT 112: Negative or not required by law. Electronically signed by: Agus Lindo M.D. 05/24/2022 10:56 AM
--- NOTE | 2022-05-24 13:03 | Urology Consultation ---
Date of Consultation May 24, 2022 Assessment & Plan (1) Elevated PSA: (2) Urinary frequency: 89-year-old male with multiple comorbidities admitted after fall/near syncope and altered mental status. Urology consulted for difficulty micturating. He is afebrile and hemodynamically stable, mentation has returned to baseline per report. Urine culture is pending. He is currently on IV ceftriaxone. Brandon catheter currently in place. Continue broad-spectrum antibiotics, follow cultures and narrow per sensitivity data when available. He has bothersome urinary frequency at baseline likely multifactorial with underlying BPH, prostate CA, suspected infection and constipation. Recommend start Tamsulosin for LUTS. Recommend bowel regimen to normalize bowels. Can perform voiding trial prior to discharge. Patient was seen during last admission for elevated PSA and sclerotic bone lesions concerning for prostate cancer with metastasis. He is scheduled to follow-up with [facility] urology. Unfortunately not until September per patient. His PSA is now 217 (previously 114 in February 2022). CT abdomen and pelvis wo/w contrast today was reviewed and showed osteoblastic metastatic disease within the pelvis, left internal iliac lymphadenopathy also likely representing metastatic disease. Prostatomegaly noted. We again discussed the possibility of an underlying prostate cancer and metastatic disease given rising PSA and CT findings.Reviewed with Dr. Pederson, urologist food production manager, patient has si gnificant metastatic disease. Recommend confirm prostate cancer and consider starting patient on Casodex and Firmagon. Recommend establish with medical oncology for management of possible metastatic disease. See attending note for further details of plan of care. will follow. Attending note: Patient independently evaluated, assessed, examined, and interviewed. Extensive conversation with patient and family this evening. Agree with note as above. Patient had developed an episode of dizziness and falling after straining with voiding. Possibly had a vasovagal episode with straining with obstructive issues. Patient had been seen approximately 2 months ago with significantly elevated PSA concerning for possible development of prostate cancer. Patient has an extensive history of elevated PSA and had undergone a number of biopsies in the past. Has not found prostate cancer prior to this. There was some plans in place to follow-up with his [facility] urologist in order to discuss possible reassessment however in the meantime patient developed worsening issues. Has been having increasing issues with voiding as well as episodes of discomfort. Extensively reviewed all of the patient's current lab work including the significantly elevated PSA to 217. Patient's kidney function as well as white count were also reviewed and discussed. Did discuss patient's ongoing issues with possibly a urinary infection. Is currently tolerating broad-spectrum IV antibiotics and Brandon catheterization for drainage. Patient's vitals are currently stable with blood pressure 134/67 and no was considerable tachycardia or fever. Patient's imaging was thoroughly reviewed by myself. A number of findings were concerning. Also due to the patient's falling, issues with bowel function, and issues with urinary function the radiology department was contacted after the patient CT abdomen pelvis was completed earlier today. I discussed directly with the radiologist possible concerns or findings. A repeat review of the patient's spinal column was assessed. Did have signs of degenerative changes. But no considerable signs of skeletal disease in the spine or signs of compressi on concerning for possible cauda equina syndrome. Patient does have some mild stenosis but no major worrisome signs that would warrant further intervention. Did discuss the possible progression of disease with the patient and his family this evening and the importance of monitoring this throughout the course of management moving forward. Discussed findings on imaging with signs of likely metastatic disease in the lymph nodes. Did discuss possible lesions on the liver and lungs as well. Discussed prostate cancer with advanced disease. Discussed concerns and issues. Discussed adenocarcinoma the prostate as well as grading and risk stratification. Discussed importance of pathology and determining the clinical course moving forward. Discussed other possibilities including issues related to the system. Discussed patient's retention issues as well as the signs of disease. Discussed possibility of other malignancies such as bladder cancer presenting with some of the similar type findings. Discussed outcomes and expectations with prostate cancer including possible issues and the fairly quick increase in PSA as well as burden of disease over the last 2 months. Reviewed this extensively with patient and discussed different options with possible options for intervention while inpatient. Reviewed need for pathologic confirmation of disease. Discussed possible prostate needle biopsy. Discussed bedside procedure versus procedure with transrectal ultrasound versus procedure in the OR utilizing transrectal ultrasound and further assessment. Discussed risk and benefits including infection and concerns. Discussed risk and benefits with patient's ongoing lower urinary tract issues and concerns. Reviewed possible cystoscopy as an option as well especially with the concern of the sudden increase in disease burden as well as the patient's ongoing obstructive issues. Discussed long-term management of issues including possibility of prostate cancer causing obstructive issues and different options for management of this if this does continue to become a problem. Also extensively reviewed different treatment options depending on the results of the pathologic reports. Discussed possible need for initiation of androgen deprivation. Reviewed extensively different options including possible injections such as Lupron and Firmagon. Discussed antiandrogens as well as the initiation of this therapy. At this point would likely benefit from Firmagon as this would be able to be started immediately without the concern for possible pathologic fracture with the ese ent's considerable bone metastasis. Did discuss initiation of Casodex therapy now with possible consideration for a newer generation antiandrogen which can be discussed further at follow-up. Discussed concerns and issues with patient and family. Multiple questions were answered. Extensive conversation with the family and patient this evening with myself for greater than 85 minutes in that conversation. Also had continued coordination between myself the urology team the emergency room and the radiology team earlier in the day. Patient's complex medical and surgical history was reviewed and summarized above. Imaging was extensively reviewed with myself and spoke directly to radiology to confirm findings on my interpretation. We will plan to continue to monitor patient. We will make n.p.o. at midnight. We will plan to initiate Casodex therapy. Discussed extensively risk and benefits of possible intervention. Patient is agreeable to move forward with cystoscopy and possible biopsy with possible transrectal ultrasound and possible biopsy of prostate. We will plan to monitor patient overnight with plans for possible procedural intervention tomorrow morning. History of Present Illness Attending Physician: Natasha Nicole MD History of Present Illness 89-year-old male with past medical history of complete heart block status post pacemaker, atrial fibrillation on Coumadin, hyperlipidemia, BPH, status post bioprosthetic valve placement, CAD status post CABG, hypertension, hypothyroidism admitted afterfall/near syncope and altered mental status. Urology consulted for difficulty micturating. Of note, he was hospitalized 02/15-02/19/22 for subdural hematoma. Patient was seen by our service during that hospitalization for elevated PSA of 114 and sclerotic lesions on CT imaging, concerning for prostate cancer with metastasis. Chart review - Afebrile Labs - Creatinine 1.32, WBC 11.33, Hgb 12.9 PSA 217 (114.698 in Feb 2022) Urinalysis showed 2+ protein, 2+ blood, 3+ leukocyte, >30 WBC, 0-4 RBC, 1+ bacteria and >30 epithelials Urine culture is pending On IV Ceftriaxone CT a/p wo/w con - IMPRESSION: 1. Near nondiagnostic evaluation for renal/ureteral calculi given the contrast within the urinary system from the previous chest CTA. Probable punctate nonobstructing stone within the right kidney. No hydronephrosis. 2. No suspicious filling defects seen within the opacified bilateral renal collecting systems, ureters, or bladder. 3. Duplicated bilateral renal collecting systems. 4. 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 5. Left internal iliac lymphadenopathy also likely representing metastatic disease. 6. Prostatomegaly. 7. Moderate diffuse thickening of the bladder wall which is decompressed by Brandon catheter. 8. Additional findings as described above. Patient seen and examined in the emergency department. and daughter at bedside. He is alert and oriented and resting comfortably in stretcher. He reports feeling better since arrival. Brandon catheter intact and draining clear yellow urine. No abdominal, suprapubic or flank pain. He denies dysuria. Notes some hematuria after catheter inserted, but now cleared. No nausea or vomiting. No fever or chills. He reports struggling with constipation, small and hard BMs. He notes bothersome urinary frequency of every hour to 1-2 hours, some sensation of incomplete emptying. He denies bone pain. Appetite good. He has followed with urology in the past, last followed with [facility] >5 years ago. Reports history of elevated PSA in the past with multiple negative biopsies. He reports he is scheduled to follow-up with [facility]rology, Dr. Mendoza, in September. No family history of malignancy. Allergies Allergy/AdvReac Type Severity Reaction Status Date / Time No Known Allergies Allergy Verified 05/24/22 01:58 Home Medications Medication Instructions Recorded Confirmed Type acetaminophen 500 mg tablet 1,000 mg PO Q6H PRN pain or fever 08/06/18 05/24/22 History aspirin 81 mg chewable tablet 81 mg PO DAILY 08/06/18 05/24/22 History cholecalciferol (vitamin D3) 50 2,000 unit PO HS 08/06/18 05/24/22 History mcg (2,000 unit) capsule (Vitamin D3) levothyroxine 50 mcg tablet 50 mcg PO DAILY 08/06/18 05/24/22 History metoprolol tartrate 25 mg tablet 25 mg PO BID 08/06/18 05/24/22 History magnesium oxide,aspartate,citr 400 mg PO HS 04/02/22 05/24/22 History riboflavin (vitamin B2) 400 mg 400 mg PO DAILY 04/02/22 05/24/22 History tablet rosuvastatin 10 mg tablet 10 mg PO DAILY 05/24/22 05/24/22 History Patient History Medical History Altered mental state Seizure-like activity Subdural hematoma, nontraumatic Thoracic aneurysm without mention of rupture Surgical History History of open heart surgery Family History Other Family history non-contributory Social History Smoking Status: Former smoker Smoking End Date: 40 years ago; Second Hand Exposure: No; Hx Alcohol Use: Yes Alcohol type: beer and wine Hx Substance Use: No Preferred Language: Icelandic Communication Ability: Effective 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 Beliefs That Will Affect Care: None Current Living Situation: Spouse Feels Safe at Home: Yes Safety Concerns: Feels Safe At This Time Assistive Devices: Cane, Glasses and Walker Review of Systems Review of Systems: All systems reviewed & are unremarkable except as noted in HPI & below Respiratory: no dyspnea Cardiovascular: no chest pain Physical Exam Constitutional: well developed and well nourished; no acute distress and not ill appearing Neck: normal visual inspection Respiratory: normal respiratory effort and able to speak in complete sentences; no respiratory distress and no labored breathing Cardiovascular: Extremities: no pedal edema Gastrointestinal (Abdomen): Inspection/Auscultation: abdomen normal to inspection; abdomen not distended Percussion/Palpation: abdomen soft; abdomen nontender and no guarding Musculoskeletal: Head/Neck/Chest: normocephalic and head atraumatic Skin: no visible skin rashes Neurologic: moves all extremities and awake Psychiatric: Orientation: alert and oriented x 3 Genitourinary: Brandon intact and draining clear yellow urine Results & Data ([facility]) Vital Signs (Past 12 Hours) Vital Signs Temp Pulse Pulse Resp BP BP Pulse Ox 05/24/22 11:33 05/24/22 11:33 36.6 C 60 20 134/57 L 98 05/24/22 08:00 62 17 05/24/22 08:00 176/79 H 05/24/22 07:30 60 17 05/24/22 07:30 158/73 H 05/24/22 07:00 60 16 97 05/24/22 07:00 153/78 H 05/24/22 06:30 83 15 05/24/22 06:30 122/55 L 05/24/22 06:11 98 05/24/22 06:10 157/78 H 05/24/22 04:00 63 17 100 05/24/22 04:00 187/84 H 05/24/22 03:41 163/75 H 05/24/22 03:41 61 18 99 05/24/22 03:40 61 17 100 05/24/22 02:30 62 19 171/86 H 100 05/24/22 02:02 60 98 05/24/22 01:45 36.5 C 85 20 153/78 H 99 Pulse Ox O2 Del Method O2 Del Method 05/24/22 11:33 98 Room Air 05/24/22 11:33 Room Air 05/24/22 08:00 05/24/22 08:00 05/24/22 07:30 05/24/22 07:30 05/24/22 07:00 05/24/22 07:00 05/24/22 06:30 05/24/22 06:30 05/24/22 06:11 Room Air 05/24/22 06:10 05/24/22 04:00 05/24/22 04:00 05/24/22 03:41 05/24/22 03:41 05/24/22 03:40 05/24/22 02:30 Room Air 05/24/22 02:02 Room Air 05/24/22 01:45 Room Air PG Care Time/CCT Total # of Minutes Spent Total Time Spent with Patient: Total time spent is greater than 50% in coordination of care (as documented) at patient's floor/unit and/or counseling patient: Coding Level of Care Code 64788 INT INP/OBS CARE 2/55MIN Diagnoses Elevated PSA R97.20 Urinary frequency R35.0
--- NOTE | 2022-05-24 15:55 | Electrocardiogram Report ---
Test Reason : Blood Pressure : / mmHG Vent. Rate : 080 BPM Atrial Rate : 187 BPM P-R Int : 000 ms QRS Dur : 184 ms QT Int : 472 ms P-R-T Axes : 000 270 078 degrees QTc Int : 544 ms Poor data quality, interpretation may be adversely affected Ventricular-paced rhythm Abnormal ECG When compared with ECG of 19-FEB-2022 13:58, Vent. rate has increased BY 20 BPM Confirmed by Sanjay Christine ([id number]) on 05/24/2022 3:54:53 PM Referred By: REFERRED SELF Confirmed By:Sanjay Christine
--- NOTE | 2022-05-24 19:11 | Communication Note ---
Date of Service: May 24, 2022 Patient admitted today for confusion. Chart reviewed. Found to have UTI and currently on ceftriaxone. CT A/P shows metastatic disease and enlarged pro state. Question of prostate CA, seen by Urology here and PSA rising. Will need oncology follow up Will ask for PT evaluation. History of SDH while on coumadin. CT head here negative for acute findings. Currently he is on aspirin. Do not need repeat CT head unless change in clinical status. Will check MRI brain to evaluate for subacute/acute CVA. Full note to follow tomorrow
[2022-05-24] MEDS: CHOLECALCIFEROL 1,000 UNITS 25 MCG TAB PO SCH (20:00)
[2022-05-24] MEDS: MAGNESIUM OXIDE 400 MG TAB PO SCH (20:00)
[2022-05-25] MEDS: LEVOTHYROXINE SODIUM 50 MCG TABLET PO SCH (05:46)
[2022-05-25 05:49] LABS: Basophils # (auto) 0.05 K/uL (0-0.2); Basophils % (auto) 0.7 %; Eosinophils # (auto) 0.23 K/uL (0-0.50); Eosinophils % (auto) 3.2 %; Hematocrit (blood only) 36.4 % (40.1-51.0); Hemoglobin 12.1 g/dl (14.0-18.0); Immature Granulocytes # (auto) 0.02 K/uL (0.00-0.02); Immature Granulocytes % (auto) 0.3 %; Lymphocytes # (auto) 2.08 K/uL (1.2-3.4); Lymphocytes % (auto) 28.7 %; Mean Corpuscular Hemoglobin 30.3 pg (25.0-34.0); Mean Corpuscular Hgb Conc 33.2 g/dL (32.0-36.0); Mean Corpuscular Volume 91.2 fL (80.0-100.0); Mean Platelet Volume 10.6 fL (9.4-12.4); Monocytes # (auto) 0.74 K/uL (0.24-0.82); Monocytes % (auto) 10.2 %; Neutrophils # (auto) 4.12 K/uL (1.4-6.5); Neutrophils % (auto) 56.9 %; Platelet Count 164 K/uL (130-400); RDW Coefficient of Variation 13.2 % (11.5-14.5); RDW Standard Deviation 43.9 fL (36.4-46.3); Red Blood Count 3.99 M/uL (4.63-6.08); White Blood Count 7.24 K/ul (4.8-10.8)
[2022-05-25 06:13] LABS: BUN Creatinine Ratio 20.7 (10-20); Calcium 8.3 mg/dl (8.5-10.1); Creatinine Clr Calc Pharmacy 59.7 ml/min; Est GFR (African American) 85.2 ml/min; Est GFR (Non-African American) 73.5 ml/min; Magnesium 2.1 mg/dl (1.7-2.4); Potassium 4.2 mmol/L (3.5-5.1)
[2022-05-25] MEDS ORDERED: cefTRIAXone SODIUM 2,000 MG in DEXTROSE 5% 50 ML IV SCH (06:30)
--- NOTE | 2022-05-25 07:15 | Anesthesiology Consultation ---
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 History Surgery Operation Date: 05/25/22 07:30 Proposed Procedures p Cystoscopy - DO chino Chamberlain Transurethral Resection Prostate - DO chino Chamberlain Biopsy of Prostate - Jacob Pederson DO Height/Weight Height: 6 ft Weight: 81.9 kg Allergies Allergy/AdvReac Type Severity Reaction Status Date / Time No Known Allergies Allergy Verified 05/24/22 01:58 Medications Home Medications Medication Instructions Recorded Confirmed Last Taken acetaminophen 500 mg tablet 1,000 mg PO Q6H PRN pain or fever 08/06/18 05/24/22 Unknown aspirin 81 mg chewable tablet 81 mg PO DAILY 08/06/18 05/24/22 05/23/22 cholecalciferol (vitamin D3) 50 2,000 unit PO HS 08/06/18 05/24/22 05/23/22 mcg (2,000 unit) capsule (Vitamin D3) levothyroxine 50 mcg tablet 50 mcg PO DAILY 08/06/18 05/24/22 05/23/22 metoprolol tartrate 25 mg tablet 25 mg PO BID 08/06/18 05/24/22 05/23/22 magnesium oxide,aspartate,citr 400 mg PO HS 04/02/22 05/24/22 05/23/22 riboflavin (vitamin B2) 400 mg 400 mg PO DAILY 04/02/22 05/24/22 05/23/22 tablet rosuvastatin 10 mg tablet 10 mg PO DAILY 05/24/22 05/24/22 05/23/22 Active Medications Generic Name Dose Route Start Last Admin Trade Name Elizabeth PRN Reason Stop Dose Admin Aspirin 81 mg 05/24/22 09:30 05/24/22 10:15 Aspirin 81 Mg Chew PO 06/23/22 09:29 81 mg DAILY DENAE Administration Ceftriaxone Sodium 2,000 mg/ 70 mls @ 100 mls/hr 05/25/22 06:30 05/25/22 06:28 Dextrose IV 06/04/22 06:29 Infused Q24H DENAE Infusion Protocol Levothyroxine Sodium 50 mcg 05/25/22 06:30 05/25/22 05:46 Levothyroxine Sodium 50 Mcg Tablet PO 06/24/22 06:29 50 mcg DAILYBB DENAE Administration Magnesium Oxide 400 mg 05/24/22 21:00 05/24/22 20:00 Magnesium Oxide 400 Mg Tab PO 06/23/22 20:59 400 mg HS DENAE Administration Metoprolol Tartrate 25 mg 05/24/22 09:30 05/24/22 20:00 Metoprolol Tartrate 25 Mg Tab PO 06/23/22 09:29 25 mg BID DENAE Administration Rosuvastatin Calcium 10 mg 05/24/22 09:30 05/24/22 10:15 Rosuvastatin Calcium 10 Mg Tab PO 06/23/22 09:29 10 mg DAILY DENAE Administration Vitamin D 2,000 units 05/24/22 21:00 05/24/22 20:00 Cholecalciferol 1,000 Units 25 Mcg Tab PO 06/23/22 20:59 2,000 units HS DENAE Administration Past Medical History Medical History Altered mental state Seizure-like activity Subdural hematoma, nontraumatic Thoracic aneurysm without mention of rupture Past Family History Family History Other Family history non-contributory Past Surgical History Surgical History History of open heart surgery Social History Smoking Status: Former smoker Smoking End Date: 40 years ago Hx Alcohol Use: Yes Alcohol type: beer and wine alcohol intake frequency: holidays/special occasions only Hx Substance Use: No Physical Exam Vital Signs Last Vital Signs Temp 97.5 F L 05/25/22 03:06 Pulse 65 05/25/22 03:06 Resp 16 05/25/22 03:06 BP 161/80 H 05/25/22 03:06 Pulse Ox 99 05/25/22 03:06 O2 Del Method 05/25/22 03:06 Testing Laboratory Results 05/25/22 05:16 05/25/22 05:16 PT 11.6 Seconds (9.0-12.0) 05/24/22 01:37 INR 1.1 (0.9-1.1) 05/24/22 01:37 APTT 25.7 Seconds (21.0-31.0) 05/24/22 01:37 Urine Color Dark Yellow 05/24/22 03:58 Urine Appearance Turbid (Clear) A 05/24/22 03:58 Urine pH 8.5 (4.5-7.5) H 05/24/22 03:58 Ur Specific [place] 1.035 (1.000-1.030) H 05/24/22 03:58 Urine Protein 2+ (Negative) H 05/24/22 03:58 Urine Glucose (UA) Negative (Negative) 05/24/22 03:58 Urine Ketones Trace (Negative) H 05/24/22 03:58 Urine Nitrite Negative (Negative) 05/24/22 03:58 Ur Leukocyte Esterase 3+ (Negative) H 05/24/22 03:58 Urine WBC (Auto) >30 /hpf (0-5) H 05/24/22 03:58 Urine RBC (Auto) 0-4 /hpf (0-4) 05/24/22 03:58 U Hyaline Cast (Auto) 0 /lpf (0-5) 05/24/22 03:58 U Epithel Cells (Auto) >30 /lpf (0-5) H 05/24/22 03:58 Urine Bacteria (Auto) 1+ (Negative) H 05/24/22 03:58 Electrocardiogram Date: 05/25/22 Poor data quality, interpretation may be adversely affected Ventricular-paced rhythm, rate 62 bpm Abnormal ECG When compared with ECG of 24-MAY-2022 01:35, Vent. rate has decreased BY 18 BPM Chest X-Ray Date: 05/24/22 FINDINGS: Median sternotomy wires, left subclavian pacer is left atrial appendage are clear device are in place. Cardiomegaly is unchanged. There is no pneumothorax or pleural effusion. Mild left lower lung interstitial thickening is probably chronic. No consolidation. No evidence for pulmonary edema. No change in appearance of the chest. IMPRESSION: No acute cardiopulmonary findings. No change in appearance of the chest. Echocardiogram Date: 05/24/22 EF 55-60% Mod concentric LVH Septal motion is consistent with post-operative state There is a bioprosthetic AV Mod to severe MR Mild TR Estimated systolic pulmonary pressure is 41mmHg
[2022-05-25] MEDS: ASPIRIN 81 MG CHEW PO SCH (07:52)
[2022-05-25] MEDS: BICALUTAMIDE 50 MG TAB PO SCH (07:52)
[2022-05-25] MEDS: METOPROLOL TARTRATE 25 MG TAB PO SCH ×2 (07:52→20:36)
[2022-05-25] MEDS: ROSUVASTATIN CALCIUM 10 MG TAB PO SCH (07:52)
--- NOTE | 2022-05-25 07:55 | Urology Progress Note ---
Date of Service May 25, 2022 Assessment & Plan (1) Urinary frequency: Plan: 89-year-old male with multiple comorbidities admitted after fall/near syncope and acute retention/incomplete emptying. Patient had developed an episode of dizziness and falling after straining with voiding. Possibly had a vasovagal episode with straining with obstructive issues. Patient had been seen approximately 2 months ago with significantly elevated PSA concerning for possible development of prostate cancer. Patient has an extensive history of elevated PSA and had undergone a number of biopsies in the past. Has not found prostate cancer prior to this. There was some plans in place to follow-up with his [facility] urologist in order to discuss possible reassessment however in the meantime patient developed worsening issues. Has been having increasing issues with voiding as well as episodes of discomfort. Extensively discussed concern with patient and family about increasing burden of likely metastatic disease with significantly elevated PSA to 217. Reviewed possible cystoscopy as an option as well especially with the concern of the sudden increase in disease burden as well as the patient's ongoing obstructive issues. Discussed long-term management of issues including possibility of prostate cancer causing obstructive issues and different options for management of this if this does continue to become a problem. Patient was made n.p.o. at midnight. Had initiated Casodex therapy with presumption of prostate Cancer. Discussed need for Transrectal biopsy of prostate to confirm diagnosis and likely starting IM injections for Androgen Depravation therapy. Patient still dealing with significant and severe exacerbation of likely metastatic disease presumed source, most likely prostate cancer. Will likely need continued management through next few days with close monitoring of patient and labs as well as close coordination with hospitalist team. Would also consider inclusion of oncology in discussion especially to coordinate new generations of anti-androgen therapy. Will need confirmation of diagnosis however before. Risks and benefits discussed at length for procedure. These include bleeding, infection, injury to surrounding tissues or organs, and risks associated with anesthesia. Patient states understanding and agrees to proceed. Will sign consent and schedule. Discussed extensively risk and benefits of possible intervention. Patient is agreeable to move forward with cystoscopy and possible biopsy with possible transrectal ultrasound and possible biopsy of prostate. Admission and Anticipated Discharge Date Admission Date: May 24, 2022 Subjective Patient admitted with near syncope with likely vasovagal episode possibly due to straining with urinary retention/incomplete emptying. Found to have severe increase in PSA with multiple changes concerning for metastatic prostate cancer. Patient is afebrile. Has been undergoing supportive care with oral medications, IV medications, IV fluids, and oral intake. Is tolerating catheter without considerable increase in pain or major issues. Has not developed severe vomiting or other issues. Has not experienced fever or chills. Has been tolerating oral medications. Is tolerating fluids. Has noticed some frequency and urgency with catheter in place. Has been dealing with significant, sometimes severe pain in the back and flank. Does have occasional burning and irritation with worsening urinary issues over the last month. Review of Systems Review of Systems: All systems reviewed & are unremarkable except as noted in HPI & below Physical Exam Physical Exam: General: Alert in no acute distress. HEENT: Normocephalic Atraumatic. Inspection normal. Cranial Nerves 2-12 Grossly intact. Normal inspection of face. Normal inspection of neck. Psychologic: Normal affect. Respiratory: Nonlabored. No use of accessory muscles. No tachypnea or dyspnea. Cardiovascular: No tachycardia Skin: [place] and Dry. No rashes or visible lesions. Extremities/Lymphatics: No edema Abdomen: Soft Non-distended. No rebound or guarding. Results & Data ([facility]) Vital Signs (Past 12 Hours) Vital Signs Temp Pulse Pulse Resp BP Pulse Ox O2 Del Method 05/25/22 03:06 36.4 C L 65 16 161/80 H 99 Room Air 05/24/22 21:56 60 05/24/22 22:49 36.8 C 69 18 153/82 H 97 Room Air PG Care Time/CCT Total # of Minutes Spent Total Time Spent with Patient: Total time spent is greater than 50% in coordination of care (as documented) at patient's floor/unit and/or counseling patient: Coding Level of Care Code 25483 SUB INP/OBS CARE 3/50MIN Diagnoses Urinary frequency R35.0
[2022-05-25] MEDS ORDERED: fentaNYL citrate 100 MCG/2 ML VIAL ONE (09:51)
[2022-05-25] MEDS ORDERED: PROPOFOL IV EMULSION 10 MG/ML 20 ML VIAL IV ONE ×2 (09:51→11:10)
[2022-05-25] MEDS ORDERED: LIDOCAINE 2% MPF LOCAL 5 ML VIAL INFIL ONE (10:28)
[2022-05-25] MEDS ORDERED: fentaNYL citrate 100 MCG/2 ML VIAL IV PRN (10:31)
[2022-05-25] MEDS ORDERED: ONDANSETRON INJ 2 MG/ML 2 ML VIAL IV PRN (10:31)
[2022-05-25] MEDS ORDERED: ATROPINE SULFATE 0.1 MG/ML 10ML SYR IV PRN (10:31)
[2022-05-25] MEDS ORDERED: ePHEDrine sulfate 50 MG/ML AMP IV PRN (10:31)
[2022-05-25] MEDS ORDERED: GENTAMICIN SULFATE 40 MG/ML 2 ML VIAL ONE (10:36)
--- NOTE | 2022-05-25 11:18 | Operative Report ---
PG Post Operative Report Pre & Post Diagnosis Operation Date: 05/25/22 07:30 Pre-Op Diagnosis: Elevated PSA. Metastatic Disease Post-Op Diagnosis: Elevated PSA. Metastatic Disease I identified the patient and participated in the time-out.: Yes Procedure Operation Date: 05/25/22 07:30 Actual Procedures p Cystoscopy with Transrectal Ultrasound and 12 x Biopsies of Prostate - Jacob Pederson DO Surgeon Jacob Pederson, II, DO Director Of Early Childhood None Estimated Blood Loss 1 Findings Consistent with Post-Op Diagnosis Severe prostatic abnormality on NERI and ultrasound. Irregular contour with hard firm findings. Measured size 83.86. Images captured and placed on chart. Specimens Total of 12 x biopsies: Left and right base, mid, and apex x2 Drains 20 Spanish coud catheter. Anesthesia Type MAC Complications none Disposition Disposition: Recovery Room Indications Patient with severely elevated PSA and signs of metastatic disease. Risks and benefits discussed at length. Description of Procedure Patient was consented and brought back to the operating room. Patient was placed under anesthesia in the supine position and moved to the dorsal lithotomy position. Patient was prepped and draped in the regular sterile fashion. A time out was completed. A 30degree Cystoscope was placed into the bladder and the entire bladder was examined. The UO's were identified. The prostate was found to be severely enlarged and multiple irregular nodules were found within the prostatic urethra. The prostate had multiple large varicosities throughout. The bladder was found to be trabeculated and had multiple diverticulum with signs of chronic bladder outlet obstruction. No masses or tumors were discovered within the bladder. Did have moderate to severe irritation throughout the bladder likely due to ongoing issues with severe incomplete emptying and recent catheterization. The entire area was again inspected. Due to the location within the prostatic urethra the lesions did not appear amendable to a cold cup biopsy. Would likely need to be dealt with with a transurethral resection. With the planned prostate needle biopsy a better option for diagnosing the likely prostate cancer it was decided to hold off on any biopsy of this until full diagnosis has been made. The bladder was left partially full and the scope was then removed. Gloves were changed, and the patient was prepped and draped in the usual sterile fashion. A NERI was completed with copious lubrication. The prostate was palpated and determined to be significantly suspicious with a nodular and atypical structure with a very hard and firm consistency. Prostate was fixed. A a 6mHz GE transrectal probe, lubricated with Surgilube, was gently placed within the rectal vault and positioned adjacent to the prostate Transrectal Sonography Transrectal Prostate Biopsy with Ultrasound: Core biopsies take from the right side of the prostate: 6 Core biopsies taken from the left side of the prostate: 6 Locations: Left and Right - Base, Mid, and [place] Total number of biopsies: 12 Hypoechoic Lesion(s) Hypoechoic Lesion(s): Numerous with a heterogeneous appearance Calcification(s) Calcification(s): Minor small calcifications Prostate Capsule Prostate Capsule: Appeared intact but was irregular in Contour Seminal Vesicles Seminal Vesicles: Normal Estimated Prostate Weight (grams): 83.8 PSA Value: PSA (NG/ML) 217 With the biopsies completed a final rectal exam was completed. No changes or significant findings of bleeding or other issues. Gloves were once again changed, the patient was prepped and a 20 Spanish coud catheter was placed with good return of urine. The balloon was elevated and set to drainage. The patient was cleaned, aroused from anesthesia, and transferred to the pacu in stable condition having tolerated the procedure well with no complications. I was present and participated in all aspects of the procedure. The patient will be monitored in the PACU until transferred. Patient will be transferred back to the floor and monitor. Will await full results of biopsies. Patient has already been initiated on antiandrogen therapy with bicalutamide. Will likely require full androgen deprivation therapy and due to the multiple metastatic lesions within the bone would likely most benefit from Firmagon. Will await full pathology from biopsies with plans to likely initiate injection if able to get approved. We will need to work with likely oncology for further management of systemic/metastatic disease We will plan to maintain catheter. Will likely have results in the next 2 days we will plan to continue with Casodex for now and await pathology likely on Friday. I attest to the content of the Intraoperative Record and any orders documented therein. Any exceptions are noted below.
--- NOTE | 2022-05-25 11:40 | Anesthesiology Progress Note ---
Date of Service May 25, 2022 Anesthesia Post Procedure Vital Signs Vital Signs: Temp Pulse Pulse Pulse Resp BP BP 05/25/22 07:15 61 05/25/22 11:35 60 22 124/72 05/25/22 11:25 98.1 F 60 16 131/73 05/25/22 08:21 97.7 F 66 16 168/85 H 05/25/22 03:06 97.5 F L 65 16 161/80 H 05/24/22 21:56 60 05/24/22 22:49 98.2 F 69 18 153/82 H 05/24/22 19:12 98.1 F 59 L 16 134/67 05/24/22 17:06 97.0 F L 61 18 126/65 05/24/22 15:21 61 05/24/22 15:18 97.0 F L 61 18 126/65 Pulse Ox O2 Del Method O2 Flow Rate 05/25/22 07:15 05/25/22 11:35 100 Oxymask 3 05/25/22 11:25 98 Oxymask 7 05/25/22 08:21 97 Room Air 05/25/22 03:06 99 Room Air 05/24/22 21:56 05/24/22 22:49 97 Room Air 05/24/22 19:12 96 Room Air 05/24/22 17:06 97 Room Air 05/24/22 15:21 05/24/22 15:18 97 Room Air Transfer of Care Handoff Completed per policy Notes Mental Status: alert / awake / arousable and participated in evaluation Patient Amnestic to Procedure: Yes Nausea / Vomiting: adequately controlled Pain: adequately controlled Airway Patency, RR, SpO2: stable & adequate BP & HR: stable & adequate Hydration State: stable & adequate Anesthetic Complications: no major complications apparent and Pt Satisfied with anesthetic care
[2022-05-25] MEDS ORDERED: VANCOMYCIN HCL 1,000 MG in SODIUM CHLORIDE 0.9% 250 ML IV STA (12:12)
[2022-05-25] MEDS ORDERED: VANCOMYCIN CONSULT ACTIVE PRN (12:12)
--- NOTE | 2022-05-25 14:00 | Cardiology Progress Note ---
Date of Service May 25, 2022 Assessment & Plan (1) Unwitnessed fall: (2) History of subdural hematoma: (3) S/P AVR (aortic valve replacement): (4) S/P aortic aneurysm repair: (5) Pacemaker: (6) Atrial fibrillation: Plan 89-year-old male who suffered a fall/syncopal event while straining a bowel movement this morning. Found with altered mental status wedged between toilet and bathtub Now returned to general normal mentation per report Initial evaluations unrevealing Echocardiogram pending Suspicious for vagal event trop unremarkable echo no new wall motion abnormalities AVR functioning appropriately Admission and Anticipated Discharge Date Admission Date: May 24, 2022 Subjective Chart reviewed. Telemetry reviewed. Results & Data ([facility]) Vital Signs (Past 12 Hours) Vital Signs Temp Pulse Pulse Pulse Resp BP BP 05/25/22 11:59 36.3 C L 62 20 152/82 H 05/25/22 11:45 36.3 C L 60 21 132/79 05/25/22 07:15 61 05/25/22 11:35 60 22 124/72 05/25/22 11:25 36.7 C 60 16 131/73 05/25/22 08:21 36.5 C 66 16 168/85 H 05/25/22 03:06 36.4 C L 65 16 161/80 H Pulse Ox O2 Del Method O2 Flow Rate 05/25/22 11:59 98 Room Air 05/25/22 11:45 98 Room Air 05/25/22 07:15 05/25/22 11:35 100 Oxymask 3 05/25/22 11:25 98 Oxymask 7 05/25/22 08:21 97 Room Air 05/25/22 03:06 99 Room Air
[2022-05-25] MEDS ORDERED: POLYETHYLENE (MIRALAX) 17 GM PACK PO PRN (15:03)
[2022-05-25] MEDS ORDERED: bisacodyL 10 MG SUPP PR PRN (15:03)
[2022-05-25] MEDS: AMPICILLIN 2,000 MG in SODIUM CHLOR 0.9% AD-VAN 100 ML IV SCH ×2 (15:38→20:42)
--- NOTE | 2022-05-25 19:25 | Hospitalist Progress Note ---
Date of Service May 25, 2022 Assessment & Plan (1) Acute UTI: (2) Near syncope: (3) Elevated PSA: Plan Near syncope. 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 Elevated PSA raises concern for prostate CA. Appreciate urology input, patient went for prostate biopsy today. -Family with many questions related to treatment for his presumed prostate cancer. He does not have an Oncologist and they will decide on one in next c ou days. They have questions about the Casodex that he was started on yesterday--I will defer this to Urology Recent history of subdural hemorrhage -while on coumadin -CT head here negative for bleed UTI -urine culture +enterococcus. Prior urine culture also positive for wiggins sensitive enterococcus--patient denies Abx use since then -d/c ceftriaxone, start ampicillin 4. Elevated D-dimer. -CTA chest unremarkable. History of atrial fibrillation Coumadin was stopped last admission because of fall and subdural hemorrhage and also the patient has atrial appendage clip, rate controlled with metoprolol. History of complete heart block, status post pacemaker. Hyperlipidemia, on statin. Status post bioprosthetic aortic valve replacement, history of coronary artery disease, status post CABG. On metoprolol and statin. On aspirin. Hypertension. On metoprolol for now, we will monitor the blood pressure. Hypothyroidism, Synthroid. Deep venous thrombosis prophylaxis SCD for now. If no evidence of bleed tomorrow from his biopsy today, will start lovenox Admission and Anticipated Discharge Date Admission Date: May 24, 2022 Subjective Went for cystoscopy with prostate biopsy today Family (daughter and ) present at bedside and had many questions related to treatment of his presumed prostate cancer Patient reports constipation, no BM in several days Physical Exam Physical Exam: Laying in bed, no acute distress, non toxic ENMT: Normocephalic, atraumatic Respiratory: breathing comfortably on room air, no wheezing/rhonchi Cardiovascular: regular rate and rhythm, no murmurs/rubs Gastrointestinal (Abdomen): soft, non tender, non distended Musculoskeletal: no edema Neurologic: awake, alert, spontaneously moving extremities Results & Data Results & Data ([facility]) Vital Signs (Past 12 Hours) Vital Signs Temp Pulse Pulse Pulse Resp BP BP 05/25/22 14:03 60 05/25/22 12:19 60 05/25/22 15:56 36.3 C L 60 16 149/75 H 05/25/22 11:59 36.3 C L 62 20 152/82 H 05/25/22 11:45 36.3 C L 60 21 132/79 05/25/22 11:35 60 22 124/72 05/25/22 11:25 36.7 C 60 16 131/73 05/25/22 08:21 36.5 C 66 16 168/85 H Pulse Ox O2 Del Method O2 Flow Rate 05/25/22 14:03 05/25/22 12:19 05/25/22 15:56 96 Room Air 05/25/22 11:59 98 Room Air 05/25/22 11:45 98 Room Air 05/25/22 11:35 100 Oxymask 3 05/25/22 11:25 98 Oxymask 7 05/25/22 08:21 97 Room Air
[2022-05-25] MEDS: CHOLECALCIFEROL 1,000 UNITS 25 MCG TAB PO SCH (20:36)
[2022-05-25] MEDS: MAGNESIUM OXIDE 400 MG TAB PO SCH (20:39)
[2022-05-26] MEDS: AMPICILLIN 2,000 MG in SODIUM CHLOR 0.9% AD-VAN 100 ML IV SCH ×4 (02:45→20:57)
[2022-05-26] MEDS: LEVOTHYROXINE SODIUM 50 MCG TABLET PO SCH (05:55)
[2022-05-26] MEDS: BICALUTAMIDE 50 MG TAB PO SCH (08:52)
[2022-05-26] MEDS: ROSUVASTATIN CALCIUM 10 MG TAB PO SCH (08:52)
[2022-05-26] MEDS: METOPROLOL TARTRATE 25 MG TAB PO SCH ×2 (08:52→20:58)
[2022-05-26] MEDS: ASPIRIN 81 MG CHEW PO SCH (09:36)
--- NOTE | 2022-05-26 12:54 | Hospitalist Progress Note ---
Date of Service May 26, 2022 Assessment & Plan (1) Acute UTI: (2) Near syncope: (3) Elevated PSA: Plan Near syncope. 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 Elevated PSA raises concern for prostate CA. Appreciate urology input, patient went for prostate biopsy 05/25 -Family with many questions related to treatment for his presumed prostate cancer. He does not have an Oncologist and they will decide on one in the next couple days. They have questions about the Casodex that he was started on yesterday--I will defer this to Urology Recent history of subdural hemorrhage -while on coumadin -CT head here negative for bleed UTI -urine culture +enterococcus. Prior urine culture also positive for wiggins sensitive enterococcus--patient denies Abx use since then -initially on ceftriaxone now on ampicillin Elevated D-dimer. -CTA chest unremarkable. few scattered nodules need [address] chest History of atrial fibrillation Coumadin was stopped last admission because of fall and subdural hemorrhage and also the patient has atrial appendage clip, rate controlled with metoprolol. History of complete heart block, status post pacemaker. Hyperlipidemia, on statin. Status post bioprosthetic aortic valve replacement history of coronary artery disease, status post CABG. On metoprolol and statin. On aspirin. Hypertension. On metoprolol for now, we will monitor the blood pressure. Hypothyroidism, Synthroid. Deep venous thrombosis prophylaxis SCD and ambulation Admission and Anticipated Discharge Date Admission Date: May 24, 2022 Subjective Patient was ambulating in hallway with his . Son, are present at bedside Family and patient are waiting to speak with Dr Selby. They will let me know once they have decided on who they want to see for Oncology No blood in arango catheter Physical Exam Physical Exam: Ambulating in room with his walker Appears well No acute distress Respiratory: Breathing comfortably on room air, no wheezing/rhonchi/rales Cardiovascular: Regular rate and rhythm, no murmurs/rubs/gallops Gastrointestinal (Abdomen): soft, non tender Musculoskeletal: No edema Genitourinary: Arango is draining clear yellow urine Results & Data Results & Data ([facility]) Vital Signs (Past 12 Hours) Vital Signs Temp Pulse Pulse Resp BP BP Pulse Ox 05/26/22 12:15 36.4 C L 60 20 136/66 99 05/26/22 10:48 62 05/26/22 07:42 37 C 60 20 155/81 H 96 05/26/22 03:13 36.9 C 60 18 138/66 96 05/26/22 01:12 62 O2 Del Method 05/26/22 12:15 Room Air 05/26/22 10:48 05/26/22 07:42 Room Air 05/26/22 03:13 Room Air 05/26/22 01:12
--- NOTE | 2022-05-26 18:48 | Urology Progress Note ---
Date of Service May 26, 2022 Assessment & Plan (1) Urinary frequency: Plan: Postop day 1 status post cystoscopy with prostate needle biopsy x12. 89-year-old male with multiple comorbidities admitted after fall/near syncope and acute retention/incomplete emptying. Patient likely has metastatic disease. Concern for prostate cancer. Extensively discussed concern with patient and family about increasing burden of likely metastatic disease with significantly elevated PSA to 217. Patient had developed an episode of dizziness and falling after straining with voiding. Possibly had a vasovagal episode with straining with obstructive issues. Patient had been seen approximately 2 months ago with significantly elevated PSA concerning for possible development of prostate cancer. Patient has an extensive history of elevated PSA and had undergone a number of biopsies in the past. Has not found prostate cancer prior to this. There was some plans in place to follow-up with his [facility] urologist in order to discuss possible reassessment however in the meantime patient developed worsening issues. Has been having increasing issues with voiding as well as episodes of discomfort. We will plan to continue with plans for likely androgen deprivation therapy and continuation of antiandrogen Casodex versus newer agent over the next few weeks. Patient will likely need to be seen by medical oncology and there is some consideration for possibly radiation oncology as well. We will likely determine space on the patient's clinical outcomes with androgen deprivation. Ideally we will try to have patient approved for Firmagon. This therapy will be able to be initiated immediately as opposed to the delay that will likely be necessary if needing to proceed with Lupron due to the bone metastasis. Will plan to discuss with pathology tomorrow about possible preliminary results to start the process and move forward with likely the injection. Have had extensive conversation with patient and family about antagonist versus agonist for androgen deprivation advantage of the direct antagonist being the lack of surge of testosterone but expected with Lupron. Patient will likely need close monitoring of lab work including continued monitoring of PSA. Need to have testosterone level tested at some point moving forward. Will also likely need bone scan to fully assess skeletal disease. Will await for the full results of biopsy prior to ordering this. Will defer to oncology for management of androgen deprivation as well as possible additional medications especially related to bone health. Patient overall is in excellent health and overall clinical picture for his age. He is extremely active. Was shoveling snow just the week prior. Has considerable baseline activity level. Admission and Anticipated Discharge Date Admission Date: May 24, 2022 Subjective Postop from cystoscopy and transrectal u/s with biopsy. Patient has been tolerating well. Has noticed some frequency and urgency. Has tolerated catheter. Has not had severe pain in the back and flank. Does have occasional burning and irritation. No severe episodes or major changes. No new nausea or vomiting. Had tolerated anesthesia without major problems Visit with patient and family today. Approximately 50 additional minutes nona barboza with patient son earlier in the day with plans for coordinating care and management. Also according to hospitalist team for further management especially as an outpatient. Extensively reviewed findings on transrectal ultrasound as well as on cystoscopy. Concern for likely significant nodules within the prostate likely being prostatic cancer. Discussed patient's lymphadenopathy, questionable areas on the solid organs, and signs of bone metastasis. Discussed expectations as well as issues with advanced prostate cancer. Discussed need for final path report to finalize the initiation of therapy. At this point patient has been started on Casodex. We will plan to continue this. Patient has been improving with his activity level. He is ambulating regularly. Was ambulating around his room this evening without major issue. Has been ambulating in the halls multiple times throughout the day. Patient's lower urinary tract issues have been tolerable with the catheter in place. Has not had major episodes of bleeding. Had considerable signs of obstruction largely due to the nodular nature within the prostatic urethra. Patient also had significant inflammation of the bladder likely due to UTI. Review of Systems Review of Systems: All systems reviewed & are unremarkable except as noted in HPI & below Physical Exam Physical Exam: General: Alert in no acute distress. Ambulating in room. Appears younger than stated age. HEENT: Normocephalic Atraumatic. Inspection normal. Cranial Nerves 2-12 Grossly intact. Normal inspection of face. Normal inspection of neck. Psychologic: Normal affect. Respiratory: Nonlabored. No use of accessory muscles. No tachypnea or dyspnea. Cardiovascular: No tachycardia Skin: [place] and Dry. No rashes or visible lesions. Extremities/Lymphatics: No edema Abdomen: Soft Non-distended. No rebound or guarding. : arango in place. Draining clear yellow urine. Results & Data ([facility]) Vital Signs (Past 12 Hours) Vital Signs Temp Pulse Pulse Resp BP Pulse Ox O2 Del Method 05/26/22 15:56 36.4 C L 62 20 164/82 H 98 Room Air 05/26/22 12:15 36.4 C L 60 20 136/66 99 Room Air 05/26/22 10:48 62 05/26/22 07:42 37 C 60 20 155/81 H 96 Room Air PG Care Time/CCT Total # of Minutes Spent Total Time Spent with Patient: Total time spent is greater than 50% in coordination of care (as documented) at patient's floor/unit and/or counseling patient: Coding Level of Care Code 57590 SUB INP/OBS CARE 3/50MIN Diagnoses Urinary frequency R35.0
[2022-05-26] MEDS: MAGNESIUM OXIDE 400 MG TAB PO SCH (20:58)
[2022-05-26] MEDS: CHOLECALCIFEROL 1,000 UNITS 25 MCG TAB PO SCH (20:58)
--- NOTE | 2022-05-26 22:01 | Electrocardiogram Report ---
Test Reason : Blood Pressure : / mmHG Vent. Rate : 062 BPM Atrial Rate : 064 BPM P-R Int : 000 ms QRS Dur : 190 ms QT Int : 510 ms P-R-T Axes : 000 -68 081 degrees QTc Int : 517 ms Poor data quality, interpretation may be adversely affected Ventricular-paced rhythm Abnormal ECG When compared with ECG of 24-MAY-2022 01:35, Vent. rate has decreased BY 18 BPM Confirmed by Reyes Cordova ([id number]) on 05/26/2022 10:01:34 PM Referred By: REFERRED SELF Confirmed By:Reyes Cordova
[2022-05-27] MEDS: AMPICILLIN 2,000 MG in SODIUM CHLOR 0.9% AD-VAN 100 ML IV SCH ×4 (01:29→18:25)
[2022-05-27] MEDS: LEVOTHYROXINE SODIUM 50 MCG TABLET PO SCH (05:40)
--- NOTE | 2022-05-27 06:27 | Electrocardiogram Report ---
Test Reason : Blood Pressure : / mmHG Vent. Rate : 060 BPM Atrial Rate : 058 BPM P-R Int : 000 ms QRS Dur : 204 ms QT Int : 520 ms P-R-T Axes : 000 -66 087 degrees QTc Int : 520 ms Ventricular-paced rhythm Abnormal ECG When compared with ECG of 25-MAY-2022 06:01, Vent. rate has decreased BY 2 BPM Confirmed by Reyes Cordova ([id number]) on 05/27/2022 6:26:59 AM Referred By: REFERRED SELF Confirmed By:Reyes Cordova
[2022-05-27] MEDS: METOPROLOL TARTRATE 25 MG TAB PO SCH (08:11)
[2022-05-27] MEDS: BICALUTAMIDE 50 MG TAB PO SCH (08:11)
[2022-05-27] MEDS: ROSUVASTATIN CALCIUM 10 MG TAB PO SCH (08:11)
[2022-05-27] MEDS: ASPIRIN 81 MG CHEW PO SCH (08:13)
--- NOTE | 2022-05-27 15:30 | Oncology Consultation ---
Date of Consultation May 27, 2022 Assessment & Plan (1) Elevated PSA: (2) Acute UTI: Plan Pleasant 89-year-old gentleman who presented with presyncope, urinary retention and altered mental status due to UTI. PSA was noted to be elevated at 217. He is s/p prostate biopsy for which pathology is pending. Based on imaging, elevated PSA he most likely has stage IV prostate cancer. He has been started on bicalutamide by urology -Await biopsy results. -Follow-up on bone scan which is scheduled for today. PSMA PET/CT can also be considered as an outpatient for initial staging -If biopsy confirms metastatic prostate cancer, would recommend starting GnRH antagonist such as degarelix which would help suppress testosterone and prevent flare phenomenon. May consider switching to GnRH agonist in the future such as loop following discussion with his color room attendant given extensive cardiac history -Would consider incorporating systemic therapy such as abiraterone or second- generation antiandrogen such as enzalutamide or apalutamide in the future given superior outcomes versus bicalutamide Thank you for this consult. Oncology will plan to follow patient at [facility] upon discharge from hospital. Please feel free to call if you have any further questions History of Present Illness Reason for Consultation: Suspected metastatic prostate cancer Attending Physician: Natasha Nicole MD History of Present Illness Mr. Baugh is an 89-year-old male with past medical history significant for congenital bicuspid aortic valve, status post aortic bioprosthetic valve replacement, history of CAD status post CABG, history of severe aortic valve stenosis, status post aortic valve replacement in 1995 with Cazares-Medtronic tilting mechanical prosthesis, dilated aortic root and thoracic aneurysm at 5.9 cm, in 2018 had aortic root and ascending aortic replacement with bioprosthetic valve conduit, chronic atrial fibrillation, left bundle-branch block, complete heart block, status post single chamber pacemaker, history of hyperlipidemia, hypothyroidism, BPH. He presented to [facility] on 05/24/2022 after a presyncopal episode. Prior to this, he had complained of difficulty urinating and his had noted altered mental status. Laboratory studies revealed mild leukocytosis with white cell count of about 11,000. PSA was elevated at 217. Urinalysis was suggestive of UTI and culture revealed Enterococcus for which he was initially started on ceftriaxone and is currently on ampicillin. CT head obtained on admission did not show any acute intracranial process. CTA chest also obtained on 05/24/2022 revealed no evidence of pulmonary embolus, few new scattered irregular pulmonary nodules with the largest in the right upper lobe measuring 11 mm, focal sclerosis within right lateral fifth rib and sternum. 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 On 05/25/2022 he underwent Cystoscopy with Transrectal Ultrasound and 12 x Biopsies of Prostate performed by Dr. Pederson for which pathology is pending. Patient indicates that he has had longstanding history of elevated PSA for which he had undergone prostate biopsies more than 15 years ago which was unrevealing. Of note, around February, he was admitted for syncopal episode thought to be due to subdural hematoma from supratherapeutic INR secondary to Coumadin at which time PSA was checked which was 114. He denies chest pain, shortness of breath, abdominal pain, nausea, vomiting, headaches, dizziness, blurry vision, nausea, vomiting or bone pain Allergies Allergy/AdvReac Type Severity Reaction Status Date / Time No Known Allergies Allergy Verified 05/24/22 01:58 Home Medications Medication Instructions Recorded Confirmed Type acetaminophen 500 mg tablet 1,000 mg PO Q6H PRN pain or fever 08/06/18 05/24/22 History aspirin 81 mg chewable tablet 81 mg PO DAILY 08/06/18 05/24/22 History cholecalciferol (vitamin D3) 50 2,000 unit PO HS 08/06/18 05/24/22 History mcg (2,000 unit) capsule (Vitamin D3) levothyroxine 50 mcg tablet 50 mcg PO DAILY 08/06/18 05/24/22 History metoprolol tartrate 25 mg tablet 25 mg PO BID 08/06/18 05/24/22 History magnesium oxide,aspartate,citr 400 mg PO HS 04/02/22 05/24/22 History riboflavin (vitamin B2) 400 mg 400 mg PO DAILY 04/02/22 05/24/22 History tablet rosuvastatin 10 mg tablet 10 mg PO DAILY 05/24/22 05/24/22 History Patient History Medical History Altered mental state Seizure-like activity Subdural hematoma, nontraumatic Thoracic aneurysm without mention of rupture Surgical History History of open heart surgery Family History Other Family history non-contributory Social History Smoking Status: Former smoker Smoking End Date: 40 years ago; Second Hand Exposure: No; Hx Alcohol Use: Yes Alcohol type: beer and wine Hx Substance Use: No Preferred Language: Albanian Communication Ability: Effective Improvement Auditor Required: No Beliefs That Will Affect Care: None Current Living Situation: Spouse Feels Safe at Home: Yes Safety Concerns: Feels Safe At This Time Assistive Devices: Cane, Glasses and Walker Review of Systems Review of Systems: All systems reviewed & are unremarkable except as noted in HPI & below Results & Data ([facility]) Vital Signs (Past 12 Hours) Vital Signs Temp Pulse Resp BP BP Pulse Ox O2 Del Method 05/27/22 10:51 36.3 C L 66 17 133/76 97 Room Air 05/27/22 07:37 36.5 C 61 18 155/83 H 98 Room Air
--- NOTE | 2022-05-27 18:26 | Discharge Summary ---
Date of Service May 27, 2022 Admission HPI Per Admitting Provider HISTORY OF PRESENT ILLNESS: This is an 89-year-old male with past medical history significant for congenital bicuspid aortic valve, status post aortic bioprosthetic valve replacement, history of CAD status post CABG, history of severe aortic valve stenosis, status post aortic valve replacement in 1995 with Cazares-Medtronic tilting mechanical prosthesis, dilated aortic root and thoracic aneurysm at 5.9 cm, in 2018 had aortic root and ascending aortic replacement with bioprosthetic valve conduit, chronic atrial fibrillation, left bundle- branch block, complete heart block, status post single chamber pacemaker, histor y of hyperlipidemia, hypothyroidism, BPH, who presents with near syncope. The patient was admitted in the hospital on 02/15/2022 with altered mental status, agitation and fall; during that hospitalization, he was found to have spontaneous subdural hematomas while on Coumadin. His Coumadin was stopped at discharge. Aspirin was restarted for his cardiac disease and recommended followup MRI scan and had MRI scan on 04/04/2022 and the hematoma was resolved. As per Cardiology also he had redo surgery for his aortic valve in 2018 with bioprosthetic aortic valve and repair of aortic aneurysm ,the patient also had a left atrial appendage clip at the time of his open heart surgery and there was no need for further anticoagulation as per Cardiology during last admission. The patient's says he was doing fine yesterday. He drove his car, ate his 3 meals, but he seemed weak. He used walker yesterday, which he did not use for the last 2 months.Last night he woke up and he went to bathroom and he was trying to micturate, since he was not able to micturate and was breathing heavily, his called him out and he said he is doing okay, but he was still doing the same thing and he was not able to micturate and went in to check on him. He was standing beside the commode and wall in the corner and seemed little irritated, a little confused. It lasted for some time until they came to the ER. Currently, his mental status is back to baseline. In the ER, CT of the head, preliminary report, no acute findings. Di dimer was elevated and in the ER CT chest was done preliminary report no PE. Currently, resting comfortably and hemodynamically stable. He was afebrile, not feeling hot or cold, no chest pain. Earlier he was short of breath, but his breathing is okay now. No headache, no blurred visions, no earache, no runny nose, no sore throat, no cough, no nausea, no abdominal pain. Normal bowel movements, no blood in the urine. No burning micturition. 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 Ambulating without difficulty in room with walker Respiratory Breathing comfortably on room air, no wheezing/rhonchi Cardiovascular regular rate and rhythm, no murmurs/rubs/gallops Gastrointestinal (Abdomen) soft, non tender, non distended Musculoskeletal no edema Genitourinary arango catheter is draining clear urine Discharge Data Allergies Allergy/AdvReac Type Severity Reaction Status Date / Time No Known Allergies Allergy Verified 05/24/22 01:58 Consultations 05/24/22 06:21 ED Decision to Admit Stat 05/24/22 08:13 Consult Cardiology Routine Consult Urology Routine 05/27/22 10:31 Consult Oncology Routine Procedures Performed Operation Date: 05/25/22 07:30 Actual Procedures p Cystoscopy, - Jacob Pederson DO s Biopsies of Prostate - Jacob Pederson DO Ordered Studies 05/24/22 01:52 CT cervical spine wo con Stat CT head/brain wo con Stat 05/24/22 02:33 CT angio chest PE protocol Urgent US venous doppler LE BI Urgent 05/24/22 08:44 CT Abd and Pelvis [CT abdomen pelvis wo/w con] Stat Hospital Course (1) Acute UTI: (2) Near syncope: (3) Elevated PSA: Plan Near syncope. 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 Elevated PSA raises concern for prostate CA. Appreciate urology input, patient went for prostate biopsy 05/25. Pathology is pending at the time of discharge -Patient was seen by Dr Selby of Urology here and he will follow up with Dr Selby after discharge to review results of prostate pathology. He was started on Casodex by Urology while here. -In addition, Oncology (Dr Zavaleta) was consulted while he was in the hospital to establish care and a bone scan was obtained prior to discharge. Bone scan results were pending at discharge and will be reviewed at follow up visit with Dr Zavaleta. Recent history of subdural hemorrhage -while on coumadin -CT head here negative for rebleed Enterococcus UTI -initially was on ceftriaxone then switched to Ampicillin. Discharged on Amoxicillin to finish 10 day course Elevated D-dimer. -CTA chest unremarkable. few scattered nodules need [address] chest History of atrial fibrillation Coumadin was stopped last admission because of fall and subdural hemorrhage and also the patient has atrial appendage clip, rate controlled with metoprolol. History of complete heart block, status post pacemaker. Hyperlipidemia, on statin. Status post bioprosthetic aortic valve replacement history of coronary artery disease, status post CABG. On metoprolol and statin. On aspirin. Through out hospital course, significant amount of time was spent with patient and family (, son and daughter) by myself and consultants to answer their questions and to ensure close follow up at discharge. Home Health Attestation I certify that this patient is under my care and that I, or a physicians child care center assistant director working with me, had a face to-face encounter that meets the home health [id number] encounter requirements with this patient. The encounter with the patient was in whole, or in part, for the following medical condition, which is the primary reason for home health care (list medical condition): near syncope- urinary frequency possible prostate cancer I certify that, based on my findings, the following services are medically necessary home health services: My clinical findings support the need for the above services because: Skilled Nsg Assessment Further, I certify that my clinical findings support that this patient is homebound (i.e. absences from home require considerable and taxing effort and are for medical reasons or orthodox services or infrequently or of short duration when for other reasons) because: Supportive Aid - Walker Transportation Assistance/Unable to Leave Home Unassisted Certification for Home Health Services: Based on the above findings, I certify that this patient is confined to the home and needs intermittent assisted care, physical therapy and/or speech therapy or continues to need occupational therapy. The patient is under my care, and I have initiated the establishment of the plan of care. This patient will be followed by a physician who will periodically review the plan of care. 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 Enterococcus UTI Vasovagal Presyncope (related to urinary difficulties) Condition on Discharge: Good Activity: Resume your previous activity Non-emergency contact: Primary Care Provider, Oncologist and Urologist Call non-emergency contact if: you have any medication questions and your symptoms worsen Follow-up/Referrals: Jacob Pederson DO [Physician] - Faustino Dc MD [Primary Care Provider] - (Date & Time 05/31/2022 2:00 PM Provider Sumanth Xiong PA-C Department General Internal Medicine [facility] ) Desi Zavaleta MD [Physician] - Diet: Heart Healthy Diet Texture: Easy to Chew Addtl Attending Provider Instructions: Please follow up with Dr Selby (Urology) and Dr Zavaleta (Oncology) for the management of your metastatic cancer (presumed to be prostate) Your prostate biopsy pathology is still pending. Results and further management to be reviewed with Dr Selby and [facility] Bone Scan was done 05/27/2022 prior to discharge to help expedite care. Results will need to be reviewed with Dr Zavaleta at your upcoming visit. You will go home with a arango catheter. Please follow up with Dr Selby to decide when this can be removed You were treated for a UTI with IV antibiotics here, you will go home on oral Am oxicillin to finish a 10 day course If you develop fever/chills/nausea/vomiting/diarrhea or other new complaints--> please call your doctor or go to nearest ER Pending Studies at Discharge: Yes Studies:: Prostate biopsy pathology Nuclear Bone Scan Stand-Alone Forms: My [facility] [place], Smoking Cessation Medications and DC Order Prescriptions: New bicalutamide 50 mg Tablet 50 mg PO QAM 30 Days Qty: 30 0RF amoxicillin 875 mg tablet 875 mg PO Q12H Qty: 14 0RF Continued magnesium oxide,aspartate,citr 400 mg magnesium capsule 400 mg PO HS riboflavin (vitamin B2) 400 mg tablet 400 mg PO DAILY acetaminophen 500 mg Tablet 1,000 mg PO Q6H PRN (Reason: pain or fever) Rx Instructions: no more than 2,000 mg per day levothyroxine 50 mcg Tablet 50 mcg PO DAILY aspirin 81 mg Tablet,Chewable 81 mg PO DAILY metoprolol tartrate 25 mg Tablet 25 mg PO BID cholecalciferol (vitamin D3) [Vitamin D3] 2,000 unit Capsule 2,000 unit PO HS rosuvastatin 10 mg Tablet 10 mg PO DAILY Discharge Orders: Discharge Order (Routine); Ordered 05/27/22 Ordered By: Natasha Nicole Admission Data Admit Date/Time: 05/24/22 07:01 Attending Provider: Natasha Nicole Admit Provider: Jovany Zamudio Primary Care Provider: Faustino Dc Other Providers: Jovany Zamudio ; Darion Tobin ; Quinn Brewster ; Jose Antonio Trejo ; Frank Crespo ; Parvez Shaw ; Jose Luis Beauchamp ; Violet Wood ; Lilli Bradford ; Chiquita Larios ; Tray Longo ; Flavio Soto ; Darion Macias ; Bradley Barton ; Rema Torres ; Jacob Pederson ; Kassi Perez ; Maggie Maurice ; Feliberto Man ; Jourdan De La Torre ; Juliann Koch ; Frank Fitzgerald ; Bin Benavides ; Desi Zavaleta ; [facility]
--- NOTE | 2022-05-27 18:37 | Nuclear Medicine Report ---
WHOLE BODY BONE SCAN HISTORY: metastatic cancer (presumed prostate) RADIOTRACER: 27.3 mCi Tc-99m MDP STUDY/IMAGES: Planar anterior and posterior whole body imaging was performed 3 hours following the i ntravenous administration of radiotracer. COMPARISON: Abdomen and pelvis CT 05/24/2022. Chest CTA 05/24/2022. FINDINGS: There are scattered areas of radiotracer uptake seen within the sternum, right third rib, r ight fifth rib, and pelvis consistent with metastatic disease. Focus of radiotracer uptake seen in th e right neck base is indeterminate. No corresponding abnormality on the prior CT examination. There i s a dense focus of radiotracer uptake within the distal left femur. This may also represent metastati c disease. IMPRESSION: Multifocal areas of abnormal radiotracer uptake as described above consistent with metastatic disease . ACT 112: Negative or not required by law. Electronically signed by: Agus Lindo M.D. 05/27/2022 6:35 PM
== END 2022-05-27 19:03 | disposition home health service (06) | DRG 723 ==
LOC: ED 01:30 → EDINP 07:01 → 2S 08:14